=== PATIENT | male | born 1955 | race Caucasian/White ===

== ENCOUNTER 2020-09-14 07:33 | Outpatient (REF) | payer MEDICARE, SELFPAY ==
[2020-09-14 10:06] LABS: Anion Gap 15 (12-20); Blood Urea Nitrogen 13 mg/dL (9-16); Carbon Dioxide 29 mmol/L (22-29); Chloride 103 mmol/L (96-108); Estimated Glomerular Filt Rate > 60; Potassium 3.9 mmol/l (3.3-5.1); Sodium 143 mmol/L (135-145)
== END 2020-09-14 07:34 | disposition home or self-care (01) ==
LOC: HO.10HDL 07:33
PROVIDERS: PCP Family Medicine; Visit Provider Family Medicine
DX: I10 Essential (primary) hypertension (principal)
CPT/HCPCS: 80051; 82565; 84520

== ENCOUNTER → 2020-11-25 10:12 | Outpatient (REF) | payer MEDICARE, SELFPAY ==
--- NOTE | ~2020-11-25 | XR_ITS ---
EXAMINATION: XR CHEST CLINICAL INFORMATION: Shortness of breath. Dyspnea on exertion. COMPARISON: 09/28/2018 TECHNIQUE: 2 views of the chest were obtained. FINDINGS: The lungs are mildly hyperexpanded. There is no consolidation, edema, or effusion. No pneumothorax. The cardiomediastinal silhouette is normal in size. Mild degenerative changes of the spine. XR/XR chest 2V IMPRESSION: Hyperexpanded, clear lungs.
--- NOTE | 2020-11-25 10:30 | ECG_ITS ---
Test Reason : SOB Blood Pressure : / mmHG Vent. Rate : 060 BPM Atrial Rate : 060 BPM P-R Int : 164 ms QRS Dur : 098 ms QT Int : 394 ms P-R-T Axes : 071 069 092 degrees QTc Int : 394 ms Normal sinus rhythm ST & T wave abnormality, consider lateral ischemia Abnormal ECG No previous ECGs available Referred By: Otto Callaway Electronically Signed By:AUDREY ROBLEDO MD
== END ==
LOC: HO.CARD 10:12
PROVIDERS: PCP Family Medicine; Visit Provider Family Medicine
DX: R06.02 Shortness of breath (principal); R06.00 Dyspnea, unspecified
CPT/HCPCS: 71046; 93005

== ENCOUNTER → 2020-12-01 07:17 | Outpatient (REF) | payer MEDICARE, SELFPAY ==
--- NOTE | 2020-12-01 07:21 | CA_ITS ---
Transthoracic Echocardiogram Patient (Last, First, Middle): Moise Gomez, Gender: Male Date of : 1955 Age: 65 Procedure Date: 12/01/2020 Procedure Type: Transthoracic Echocardiogram Location: OP Height: 175.26 cm Weight: 70.31 kg BSA: 1.85 m2 Heart Rate: bpm BP: 130 / 80 mmHg Informatics Scientist: Referring MD: Otto Callaway MD Symptoms: SOB,DYSPNEA. R/O CHF Study Quality: Fair, good on Apical views Conclusions: - 1. Normal LV systolic function with grade 1 diastolic dysfunction 2. Mild aortic regurgitation 3. Normal RV systolic pressure 4. No pericardial effusion Findings Left Ventricle Normal left ventricular size, thickness, and systolic function. The visually estimated ejection fraction is between 60-65%. Spectral Doppler is indicative of an impaired relaxation filling pattern. E/E prime ratio is <8, consistent with normal filling pressures. Evidence suggests grade I (mild) diastolic dysfunction. Right Ventricle Normal right ventricular cavity size and systolic function. Atria Both atria are normal in size. There is no evidence of interatrial shunt. Aortic Valve The aortic valve structure and function is likely normal. There is no aortic valve stenosis. There is mild aortic valve regurgitation. Mitral Valve Normal mitral valve structure and function. There is mild mitral annular calcification. There is trace mitral valve regurgitation. There is no mitral valve stenosis. Pulmonic Valve The pulmonic valve was not well visualized. Tricuspid Valve Likely normal tricuspid valve structure and function. There is trace tricuspid valve regurgitation. The right ventricular systolic pressure is normal. The right ventricular systolic pressure is 15 mmHg. Normal right atrial pressure. There is no evidence of pulmonary hypertension. Great Vessels All visible segments of the aorta are normal in size. The pulmonary artery was not well visualized. Venous The inferior vena cava is normal in size and collapses greater than 50% with inspiration. Pericardium/Pleural There is no evidence of pericardial effusion. Prior Study Comparison No prior study available for comparison. Measurements 2D Linear Measurements IVSd: 0.93 0.6-0.9/0.6-1.0 cm LVIDd: 4.08 3.9-5.3/4.2-5.9 cm LVIDd Index: 2.21 2.4-3.2/2.2-3.1 cm/m2 LVIDs: 2.63 2.0-3.6 cm LVPWd: 0.93 0.7-1.1 cm Ao Root: 3.90 2.1-3.5 cm LA Diam: 3.00 2.7-3.8/3.0-4.0 cm LAIDs Index: 1.62 1.5-2.3 cm/m2 LV Mass: 236.59 67-162/88-224 g LV Mass Index: 127.89 43-95/49-115 g/m2 LVOT Diam: 2.00 3.0+(-)1.3 cm Mitral Valve MV Pk E: 0.61 MV PK A: 0.88 MV Decel Time: 248.00 E/A: 0.70 E'Lateral: 7.83 E'Medial: 5.90 E/E' Med: 10.30 E/E' Lat: 7.70 PHT: 73.00 MVA PHT: 3.01 Decel Caroline: 2.44 Aortic Valve AoV Pk Joel: 1.60 AoV Mn Joel: 1.04 AoV VTI: 0.32 AoV Pk Grad: 10.00 Aov Mn Grad: 5.00 HAIM Cont.VTI: 2.60 LVOT LVOT Pk Joel: 1.15 LVOT Mn Joel: 0.68 LVOT VTI: 0.26 LVOT Pk Grad: 5.00 LVOT Mn Grad: 2.00 LVOT Diam: 2.00 LVOT Area: 3.14 Diastolic Function MV Pk E: 0.61 MV Pk A: 0.88 E/A: 0.70 E'Medial: 5.90 E/E' Med: 10.30 E' Laterial: 7.83 E/E' Lat: 7.70 Tricuspid Valve TR Pk Joel: 1.75 TR Pk Grad: 12.00 RA Press: 3.00 RVSP: 15.00 Great Vessels Aorta Ao Root-2D: 3.90 2.0-3.7 cm Ao Asc: 3.70 2.1-3.4 cm Pulmonary Valve PV Pk Joel: 1.02 Peak PV Grad: 4.00 Updated in Other Vendor System with Status of Final Fermín Rodriguez MD electronically signed on 12/01/2020 6:03:49 PM with status of Final
== END ==
LOC: HO.CARD 07:17
PROVIDERS: Visit Provider Family Medicine
DX: R06.02 Shortness of breath (principal); R06.00 Dyspnea, unspecified
CPT/HCPCS: 93306

== ENCOUNTER → 2020-12-20 09:46 | Outpatient (REF) | payer MEDICARE, SELFPAY ==
--- NOTE | ~2020-12-20 | NM_ITS ---
EXERCISE MYOCARDIAL PERFUSION STUDY INDICATION: Shortness of breath, assess for coronary disease and ischemia TECHNIQUE: The patient was brought in for an exercise perfusion study on 12/20/2020. Patient performed exercise as per [facility] protocol and was injected 25 mCi of sestamibi once target heart rate was achieved. Images were obtained using the SPECT gamma camera interlaced with the gating device. Images were obtained in supine position. Resting perfusion study was performed on 12/21/2020. Patient was administered 25 mCi of sestamibi intravenously at rest. Images were then obtained in supine position. Total DLP 69mGy-cm. Images were processed with the software and compared side to side in short axis, horizontal long axis and vertical long axis views. FINDINGS: Raw images were reviewed. The stress perfusion study showed diminished tracer uptake along the inferior septum from basal portion to the apex. With CT attenuation correction there is improvement and hence could suggest diaphragmatic artifact. However there is also adjacent GI tracer uptake which makes interpretation difficult. The gated study shows normal LV systolic function with calculated LVEF of 55%. LV cavity is normal in size. The gated study shows normal wall thickening and contraction of segments. Resting study shows diminished tracer uptake along the inferior septum from base to apex. There is improvement with CT attenuation correction, but because of adjacent GI tracer uptake, interpretation difficult. Gating at rest reveals normal wall motion with ejection fraction at 60%. The findings are consistent with no reversible defects. Fixed inferior septal defect probably artifactual. NM/NM russ perf SPECT rest & str IMPRESSION: 1. Myocardial perfusion imaging study shows no evidence of ischemia. Fixed defect along the inferior septum that could be related to adjacent GI tracer uptake. 2. Gated LVEF is 52% during stress and 60% during rest. 3. Transient ischemic dilatation not present. EKG component of the test reported separately.
--- NOTE | 2020-12-20 10:00 | CA_ITS ---
Acquisition Time: 2020-12-20 10:15:18 Total Exercise Time: 00:04:41 Test Indications: SOB Medications: Protocol: DANYELL Max HR: 105 BPM 68% of Pred: 153 BPM Max BP: 168/072 mmHG Max Work Load: 5.2 METS Exercise stress nuclear using modified Danyell protocol, as Pt reports severe SOB with minimal activity. Pt was able to exercise for 4 min 41 sec, with TAPHR up to 72% and METS 5.20. EKG without arhhythmias, mild ST depressions seen inferiorly and anteriorly suggestive of ischemia, however his HR up to 72 %. Pt will have nuclear portion to assess for ischemia. Normotensive response to exercise. Test reviewed with Dr. Rodriguez. Referred By: Otto Callaway Overread By: Brielle Hodgson NP
== END ==
LOC: HO.CARD 09:46
PROVIDERS: PCP Family Medicine; Visit Provider Family Medicine
DX: R06.00 Dyspnea, unspecified (principal); R06.02 Shortness of breath; I10 Essential (primary) hypertension
CPT/HCPCS: 78452; 93016; 93017; 93018; A9500

== ENCOUNTER 2020-12-28 07:44 | Outpatient (REF) | payer MEDICARE, SELFPAY ==
--- NOTE | 2020-12-28 | PFT_ITS ---
INDICATION: Shortness of breath. SPIROMETRY: The FEV1 to FVC of 35% with an FEV1 of 1.65 L, which is 51% predicted and an FVC of 4.79 L, which is 110% predicted. No significant response to bronchodilators noted. Maximum voluntary ventilation 47% predicted. LUNG VOLUMES: Total lung capacity 112% predicted with residual volume of 141% predicted. DIFFUSION CAPACITY: DLCO 32% predicted. COMPARISONS: None available. INTERPRETATION: There is an obstructive ventilatory defect consistent with moderate to severe COPD. No significant response to bronchodilators noted. The patient has significant small airways disease. In addition to that, there is a [id number] diffusion impairment secondary to deconditioning and also worsening dynamic inspiratory capacity. The patient has a trend of hyperinflation and significant air trapping due to the COPD and the patient also has a severe diffusion impairment likely secondary to emphysema and other parenchymal lung conditions or pulmonary vascular conditions should also be considered. Clinical correlation warranted. MD ROSIE Redmond/[facility] / [phone]
== END 2020-12-28 07:45 | disposition home or self-care (01) ==
LOC: HO.RESP 07:44
PROVIDERS: PCP Family Medicine; Visit Provider Family Medicine
DX: R06.02 Shortness of breath (principal); Z87.891 Personal history of nicotine dependence
CPT/HCPCS: 94060; 94727; 94729

== ENCOUNTER → 2021-01-19 14:16 | Outpatient (BNVA) | payer MEDICARE, SELFPAY | PROVIDERS: PCP Family Medicine; Referring Provider Family Medicine; Visit Provider Internal Medicine | DX: R06.02 Shortness of breath (principal); I10 Essential (primary) hypertension; R94.31 Abnormal electrocardiogram [ECG] [EKG] | CPT/HCPCS: 99202 ==

== ENCOUNTER → 2021-02-22 08:25 | Outpatient (BNVA) | payer MEDICARE, SELFPAY | PROVIDERS: PCP Family Medicine; Visit Provider Hospitalist | DX: J41.8 Mixed simple and mucopurulent chronic bronchitis (principal) | CPT/HCPCS: 99202 ==

== ENCOUNTER 2021-04-08 13:45 | Outpatient (REF) | payer MEDICARE, SELFPAY ==
--- NOTE | ~2021-04-08 | CT_ITS ---
EXAMINATION: CT CHEST SCREENING CLINICAL INFORMATION: Lung cancer screening COMPARISON: Previous chest x-rays most recent November 2020 TECHNIQUE: Multidetector volumetric CT imaging of the chest is performed without contrast using low dose technique. Additional 2D coronal and sagittal reformatted images and axial 3D maximum intensity projection (MIP) images are generated on the CT workstation. This CT examination was performed using dose optimization techniques as appropriate, variously including the following: *Automated exposure control *Adjustment of mA and/or kV according to patient size (this includes techniques or standardized protocols for targeted exams where dose is matched to indication/reason for exam; i.e. extremities or head) *Use of iterative reconstruction technique DLP: 52 mGy-cm FINDINGS: LUNGS: There is evidence of emphysema. There is increased soft tissue seen in the anterior left mainstem bronchus measuring 6 x 9 mm, axial image 214 series 6. Right: There is an irregularly-shaped abnormal parenchymal density in the right upper lobe measuring 5 x 8 mm, axial image 104 series 6. There is an abnormal irregular-shaped parenchymal density in the right upper lobe measuring 0.8 x 1.2 cm, axial image 102 series 6. There is a 3 mm right upper lobe nodule, axial image 105 series 6. There is a 4 mm right upper lobe nodule, axial image 153 series 6. There is a 4 mm right upper lobe nodule, axial image 157 series 6. There is a 2 mm peripheral or subpleural right lower lobe nodule, axial image 267 series 6. There is a 4 mm peripheral right lower lobe nodule, axial image 299 series 6. There is a 3 mm peripheral right middle lobe nodule, axial image 369 series 6. There is subsegmental atelectasis in the posterior costophrenic sulcus of the right lower lobe for example, axial image 418 series 6. Left: There is a 3 mm left upper lobe nodule, axial image 78 series 6. There is an abnormal parenchymal density in the left upper lobe measuring 5 x 7 mm, axial image 165 series 6. There is a 4 mm ground-glass attenuation nodule in the left upper lobe, axial image 193 series 6. There are 2 adjacent 3 and 4 mm left lower lobe nodules, axial image 278 series 6. There are 3 mm right lower lobe nodules, axial image 329 and 340 series 6. MEDIASTINUM: The ascending thoracic aorta is dilated measuring 4.6 cm. The aortic arch and descending thoracic aorta are upper normal in size. The heart does not appear enlarged. There is moderate coronary artery calcification. There is no pericardial effusion. There are no enlarged hilar or mediastinal lymph nodes. PLEURA: There is no pleural effusion. No pleural mass or thickening. AXILLA: No lymphadenopathy. UPPER ABDOMEN: Unremarkable OSSEOUS STRUCTURES: There are degenerative changes of the spine. CT/CT lung screening IMPRESSION: Emphysema. Multiple abnormal parenchymal densities and nodules, largest measuring 0.8 x 1.2 cm in the right upper lobe and 6 x 9 mm endobronchial lesion in the left mainstem bronchus. Coronary artery calcification. Dilated ascending thoracic aorta. ASSESSMENT: Lung-RADS category 4A: Suspicious RECOMMENDATION: 3 month low-dose chest CT follow-up recommended.
== END 2021-04-08 13:46 | disposition home or self-care (01) ==
LOC: HO.CT 13:45
PROVIDERS: PCP Family Medicine; Visit Provider Physician Assistant Medical
DX: Z87.891 Personal history of nicotine dependence (principal); Z57.8 Occupational exposure to other risk factors
CPT/HCPCS: 71271

== ENCOUNTER 2021-04-26 08:02 | Outpatient (REF) | payer MEDICARE, SELFPAY ==
--- NOTE | ~2021-04-26 | PE_ITS ---
EXAMINATION: PET/CT FUSION SKULL TO THIGH CLINICAL INFORMATION: Multiple bilateral lung nodules. COMPARISON: None TECHNIQUE: Intravenous administration of 17.5 mCi of FDG in the left antecubital vein, whole-body PET emission scan was obtained. Subsequently 3.[address] transmission scan was obtained without oral or IV contrast for correlate of imaging. 3-D fusion CT and PET imaging was obtained on a separate workstation. Serum blood glucose. DLP: 465 mGy-cm FINDINGS: HEAD AND NECK: No abnormal metabolic activity seen in the visualized brain parenchyma or the sinuses. Mild symmetrical metabolic activity seen in the retropharyngeal soft tissue/muscle along the nasopharynx and lateral pharyngeal wall. No additional areas of abnormal activity seen. On CT imaging visualized brain parenchyma, bilateral orbits and the paranasal sinuses are unremarkable. The airway is widely patent. CHEST: There are multiple bilateral pulmonary nodules seen on CT. Most prominent irregular-shaped nodules in the right upper lobe are visualized on image 253/102 and image 258/102. No abnormal metabolic activity seen in these nodules. There are several additional nodules seen in both lungs with no abnormal metabolic activity seen at this time. No abnormal metabolic activity seen in the mediastinum to suspect any lymphadenopathy. On CT there are no lymph nodes in the mediastinum or the axilla. There is mild focal metabolic activity seen in the right sternoclavicular joint. There is no pleural effusion. Nonspecific metabolic activity is also visualized in the left anterior myocardium of the left ventricle suspicious for ischemic changes. ABDOMEN AND PELVIS: No abnormal metabolic activity seen in the solid organs except for normal activity in the kidneys, ureters and the bladder. On CT there is unremarkable-appearing liver, spleen, pancreas and bilateral adrenal glands. No radiopaque gallstones or kidney stones seen. Nonspecific mild activity seen in the right colon likely related to fecal ismael or diverticulosis. A few scattered diverticula are seen throughout the colon. Mild aneurysmal dilatation of distal abdominal aorta measuring 4.3 x 3.8 cm is noted. The appendix is normal caliber. Imaging through the pelvis reveals unremarkable urinary bladder. MSK: There is nonspecific mild metabolic activity seen adjacent to the ischium likely ischial bursitis. Bone windows reveal no lytic or sclerotic process. There are degenerative disc changes with vacuum disc phenomena L5-S1 disc level. PET/PET CT fusion skull to thigh IMPRESSION: No abnormal metabolic activity seen in the chest on PET study. On CT there are innumerable nodules seen in both lungs especially ill-defined larger densities in the right upper lobe. These are likely inflammatory or infectious in etiology. No abnormal activity seen in the neck, chest, abdomen or pelvis to suggest any abdominal lymphadenopathy or any other primary lesion. Scattered colonic diverticulosis.
== END 2021-04-26 08:03 | disposition home or self-care (01) ==
LOC: HO.PET 08:02
PROVIDERS: PCP Family Medicine; Visit Provider Surgery
DX: Z13.89 Encounter for screening for other disorder (principal)

== ENCOUNTER → 2021-05-19 08:25 | Outpatient (BNVA) | payer MEDICARE, SELFPAY | PROVIDERS: PCP Family Medicine; Visit Provider Hospitalist | DX: J41.8 Mixed simple and mucopurulent chronic bronchitis (principal); R91.8 Other nonspecific abnormal finding of lung field; R06.00 Dyspnea, unspecified | CPT/HCPCS: 99212 ==

== ENCOUNTER 2021-07-13 07:31 | Outpatient (REF) | payer MEDICARE, SELFPAY ==
[2021-07-13 09:59] LABS: MANUAL DIFF FLAG NO
[2021-07-13 10:01] LABS: Basophils Absolute Auto 0.1 X10*3/uL (0.0-0.2); Eosinophils Absolute Auto 0.1 X10*3/uL (0.0-0.4); Eosinophils Percent Auto 2.6 % (0-4); Hematocrit 45.7 % (42-52); Hemoglobin 15.9 g/dl (14.0-18.0); Imm Gran Abs Auto 0.01 X10*3/uL (0.00-0.03); Imm Gran Pct Auto 0.2 % (0.0-0.4); Lymphocytes Percent Auto 38.7 % (20-40); Mean Corpuscular HGB Conc 34.8 g/dl (31.0-36.0); Mean Corpuscular Hemoglobin 31.7 pg (27.0-33.0); Mean Corpuscular Volume 91.2 fL (80-98); Mean Platelet Volume 10.6 fL (9.4-12.4); Monocytes Absolute Auto 0.6 X10*3/uL (0.1-1.2); Monocytes Percent Auto 11.6 % (2-11); Neutrophils Absolute Auto 2.3 X10*3/uL (2.0-8.3); Neutrophils Percent Auto 45.9 % (45-73); Platelet Count 180 X10*3/uL (160-400); Red Blood Count 5.01 X10*6/uL (4.60-5.80); Red Cell Distribution Width 11.9 % (11.0-16.0); White Blood Count 5.1 X10*3/uL (4.8-10.8)
[2021-07-13 14:52] LABS: Alanine Aminotransferase 36 U/L (0-40); Albumin Level 4.7 g/dL (3.5-5.0); Alkaline Phosphatase 68 U/L (39-117); Anion Gap 14 (12-20); Aspartate Amino Transferase 28 U/L (5-37); Bilirubin Total 0.9 mg/dL (0.0-1.0); Blood Urea Nitrogen 10 mg/dL (9-16); Calcium 9.4 mg/dL (8.4-10.2); Carbon Dioxide 28 mmol/L (22-29); Chloride 102 mmol/L (96-108); Estimated Glomerular Filt Rate > 60; Glucose Fasting 134 mg/dL (60-99); Potassium 4.1 mmol/L (3.3-5.1); Sodium 140 mmol/L (135-145)
== END 2021-07-13 07:32 | disposition home or self-care (01) ==
LOC: HO.10HDL 07:31
PROVIDERS: Visit Provider Family Medicine
DX: R06.02 Shortness of breath (principal); R53.1 Weakness
CPT/HCPCS: 36415; 80053; 85025

== ENCOUNTER → 2021-08-01 08:41 | Outpatient (BNVA) | payer MEDICARE, SELFPAY | PROVIDERS: PCP Family Medicine; Referring Provider Family Medicine; Visit Provider Internal Medicine | DX: I25.10 Atherosclerotic heart disease of native coronary artery without angina pectoris (principal); I71.2 Thoracic aortic aneurysm, without rupture; I10 Essential (primary) hypertension; R94.31 Abnormal electrocardiogram [ECG] [EKG] | CPT/HCPCS: 99212 ==

== ENCOUNTER 2021-11-18 09:19 | Outpatient (REF) | payer MEDICARE, SELFPAY ==
--- NOTE | ~2021-11-18 | CT_ITS ---
EXAMINATION: CT CHEST WITHOUT CONTRAST CLINICAL INFORMATION: Other nonspecific finding of lung field. COMPARISON: Previous chest x-ray November 2020, CT of the chest [address] April 2021. TECHNIQUE: Multidetector volumetric CT imaging of the chest was done. Axial MIP volume rendering provided. Sagittal and coronal reformatted images were obtained. This CT examination was performed using dose optimization techniques as appropriate, variously including the following: *Automated exposure control *Adjustment of mA and/or kV according to patient size (this includes techniques or standardized protocols for targeted exams where dose is matched to indication/reason for exam; i.e. extremities or head) *Use of iterative reconstruction technique DLP: 147 mGy-cm FINDINGS: LUNGS: There is evidence of emphysema. The abnormal parenchymal density in the right upper lobe seen axial image 104 series 6 is no longer seen. The second more inferior right upper lobe heterogeneous partially ground-glass attenuation partially solid right upper lobe nodule appears decreased. The ground-glass attenuation peripheral component appears to have resolved. There is a residual small solid nodule measuring 3 mm axial image 128 series 7. This is decreased in size from 4 mm March 2021 exam axial image 133. There is a new 4 mm right lower lobe nodule axial 457 series 7. The previously identified 5 mm right upper lobe nodule axial image 184 series 4 is no longer seen. The small calcified and noncalcified pulmonary nodules or micronodules are otherwise stable. The largest is a 4 mm calcified left lower lobe nodule axial image 308 series 7. There is new atelectasis or small infiltrate in the right lower lobe. There is scarring or subsegmental atelectasis in the posterior left upper lobe adjacent to the fissure. No endobronchial or endotracheal lesion is seen. There are secretions in the left mainstem bronchus. MEDIASTINUM: The ascending thoracic aorta is dilated measuring 4.5 cm diameter. The aortic arch and descending thoracic aorta are upper normal in size. This is similar to previous exam. The heart does not appear enlarged. There is coronary artery calcification. There is no pericardial effusion. There are no enlarged hilar or mediastinal lymph nodes. PLEURA: There is no pleural effusion. No pleural mass or thickening. AXILLA: No lymphadenopathy. UPPER ABDOMEN: Unremarkable. OSSEOUS STRUCTURES: There are degenerative changes of the spine. CT/CT chest wo con IMPRESSION: Complete resolution of the more superior abnormal parenchymal density in the right upper lobe and interval decrease in size and density in the heterogeneous partially ground-glass attenuation, partially solid nodule or density in the more inferior right upper lobe compared to March 2021. New 4 mm right lower lobe nodule and resolution of previously identified anterior segment right upper lobe nodule. Otherwise, small calcified and noncalcified micronodules are stable. Increasing atelectasis or small infiltrate in the right lower lobe. Coronary artery calcification. Dilated ascending thoracic aorta and upper normal size aortic arch and descending thoracic aorta. Fleischner guidelines were followed.
== END 2021-11-18 09:20 | disposition home or self-care (01) ==
LOC: HO.CT 09:19
PROVIDERS: Visit Provider Hospitalist
DX: R91.8 Other nonspecific abnormal finding of lung field (principal)
CPT/HCPCS: 71250

== ENCOUNTER 2021-12-13 07:43 | Outpatient (REF) | payer MEDICARE, SELFPAY ==
[2021-12-13 09:10] LABS: Cholesterol 216 mg/dL; Glucose Fasting 144 mg/dL (60-99); HDL Cholesterol 64 mg/dL; LDL Cholesterol Calculated 133 mg/dl; Triglycerides 96 mg/dL
[2021-12-16 17:22] LABS: Transglutaminase Ab IgG <1.0 U/mL
== END 2021-12-13 07:44 | disposition home or self-care (01) ==
LOC: HO.LAB 07:43
PROVIDERS: PCP Family Medicine; Visit Provider Family Medicine
DX: E78.00 Pure hypercholesterolemia, unspecified (principal); K90.0 Celiac disease
CPT/HCPCS: 36415; 80061; 82947; 86364

== ENCOUNTER → 2021-12-28 08:31 | Outpatient (REF) | payer MEDICARE, SELFPAY ==
--- NOTE | 2021-12-28 08:38 | CA_ITS ---
Transthoracic Echocardiogram Patient (Last, First, Middle): Moise Gomez, Gender: Male Date of : 1955 Age: 66 Procedure Date: 12/28/2021 Procedure Type: Transthoracic Echocardiogram Location: OP Height: 175.26 cm Weight: 67.59 kg BSA: 1.82 m2 Heart Rate: bpm BP: 136 / 76 mmHg Payroll Administrative Assistant: FRIDA Referring MD: Dav Mukherjee MD Symptoms: I71.2 - Thoracic aortic aneurysm, without rupture Study Quality: Fair Conclusions: - 1. Normal LV systolic function with impaired relaxation filling pattern 2. Trivial aortic regurgitation 3. Mildly dilated ascending aorta at 3.9 cm 4. No gross pericardial effusion Findings Left Ventricle Normal left ventricular size, thickness, and systolic function. The visually estimated ejection fraction is between 60-65%. Spectral Doppler is indicative of an impaired relaxation filling pattern. E/E prime ratio is between 8 and 15 consistent with indeterminate filling pressures. Right Ventricle Normal right ventricular cavity size and systolic function. Atria The left atrium is likely dilated. Interatrial shunt cannot be excluded. The right atrium is normal in size. Aortic Valve The aortic valve was not well visualized. There is no aortic valve stenosis. There is trace (trivial) aortic valve regurgitation. Mitral Valve Likely normal mitral valve structure and function. There is trace mitral valve regurgitation. There is no mitral valve stenosis. Pulmonic Valve The pulmonic valve was not well visualized. Tricuspid Valve Likely normal tricuspid valve structure and function. Tricuspid regurgitation envelope is inadequate for calculation of right ventricular systolic pressure. Great Vessels The pulmonary artery was not well visualized. There is mild dilatation of the ascending aorta measuring 3.90 cm. Venous The inferior vena cava is normal in size and collapses greater than 50% with inspiration. Pericardium/Pleural There is no evidence of pericardial effusion. Prior Study Comparison Changes noted compared to prior study dated: 12/01/2020. ascending aorta is mildly dilated at 3.9 cm Measurements 2D Linear Measurements IVSd: 0.83 0.6-0.9/0.6-1.0 cm LVIDd: 4.45 3.9-5.3/4.2-5.9 cm LVIDd Index: 2.45 2.4-3.2/2.2-3.1 cm/m2 LVIDs: 2.69 2.0-3.6 cm LVPWd: 0.97 0.7-1.1 cm LA Diam: 3.30 2.7-3.8/3.0-4.0 cm LAIDs Index: 1.81 1.5-2.3 cm/m2 LV Mass: 162.75 67-162/88-224 g LV Mass Index: 89.42 43-95/49-115 g/m2 LVOT Diam: 2.00 3.0+(-)1.3 cm 2D Systolic Function EF 4C: 67.70 >55% EF 2C: 64.90 >55% EF BiP: 66.50 >55% Mitral Valve MV Pk E: 0.77 MV PK A: 0.94 MV Decel Time: 210.00 E/A: 0.80 E'Lateral: 10.10 E'Medial: 6.31 E/E' Med: 12.10 E/E' Lat: 7.60 PHT: 61.00 MVA PHT: 3.[address] [place]: 3.65 Aortic Valve AoV Pk Joel: 1.43 AoV Mn Joel: 0.94 AoV VTI: 0.31 AoV Pk Grad: 8.00 Aov Mn Grad: 4.00 HAIM Cont.VTI: 2.34 LVOT LVOT Pk Joel: 1.04 LVOT Mn Joel: 0.69 LVOT VTI: 0.23 LVOT Pk Grad: 4.00 LVOT Mn Grad: 2.00 LVOT Diam: 2.00 LVOT Area: 3.14 Diastolic Function MV Pk E: 0.77 MV Pk A: 0.94 E/A: 0.80 E'Medial: 6.31 E/E' Med: 12.10 E' Laterial: 10.10 E/E' Lat: 7.60 Right Ventricle TAPSE (mm): 20.00 TVS' Joel: 12.70 Tricuspid Valve TR Pk Joel: 1.16 TR Pk Grad: 5.00 Great Vessels Aorta Sinus of Valsalva: 3.75 2.0-3.[address] [place]: 3.35 1.7-3.4 cm Ao Asc: 3.90 2.1-3.4 cm Ao Arch: 3.60 Updated in Other Vendor System with Status of Final Fremín Rodriguez MD electronically signed on 12/28/2021 3:40:52 PM with status of Final
== END ==
LOC: HO.CARD 08:31
PROVIDERS: Visit Provider Internal Medicine
DX: I71.2 Thoracic aortic aneurysm, without rupture (principal)
CPT/HCPCS: 93306

== ENCOUNTER → 2022-03-03 10:09 | Outpatient (BNVA) | payer MEDICARE, SELFPAY | PROVIDERS: PCP Family Medicine; Visit Provider Hospitalist | DX: J41.8 Mixed simple and mucopurulent chronic bronchitis (principal); R06.00 Dyspnea, unspecified; R91.8 Other nonspecific abnormal finding of lung field | CPT/HCPCS: 99212 ==

== ENCOUNTER → 2022-04-20 10:29 | Outpatient (BNVA) | payer MEDICARE, SELFPAY | PROVIDERS: PCP Family Medicine; Referring Provider Family Medicine; Visit Provider Internal Medicine | DX: I25.10 Atherosclerotic heart disease of native coronary artery without angina pectoris (principal); I71.2 Thoracic aortic aneurysm, without rupture; I10 Essential (primary) hypertension; R94.31 Abnormal electrocardiogram [ECG] [EKG] | CPT/HCPCS: 93005; 99212 ==

== ENCOUNTER 2022-06-13 06:16 | Outpatient (REF) | payer MEDICARE, SELFPAY ==
[2022-06-13 06:33] LABS: MANUAL DIFF FLAG NO
[2022-06-13 07:16] LABS: Basophils Percent Auto 0.6 % (0-2); Eosinophils Absolute Auto 0.2 X10*3/uL (0.0-0.4); Eosinophils Percent Auto 2.8 % (0-4); Hematocrit 45.3 % (42.0-52.0); Hemoglobin 15.7 g/dl (14.0-18.0); Imm Gran Abs Auto 0.01 X10*3/uL (0.00-0.03); Imm Gran Pct Auto 0.1 % (0.0-0.4); Lymphocytes Absolute Auto 1.8 X10*3/uL (1.2-4.9); Lymphocytes Percent Auto 25.7 % (20-40); Mean Corpuscular HGB Conc 34.7 g/dl (31.0-36.0); Mean Corpuscular Hemoglobin 31.6 pg (27.0-33.0); Mean Corpuscular Volume 91.1 fL (80.0-98.0); Mean Platelet Volume 10.3 fL (9.4-12.4); Monocytes Absolute Auto 0.6 X10*3/uL (0.1-1.2); Neutrophils Absolute Auto 4.3 x10*3/uL (2.0-8.3); Neutrophils Percent Auto 61.8 % (45-73); Platelet Count 141 X10*3/uL (160-400); Red Blood Count 4.97 X10*6/uL (4.60-5.80); Red Cell Distribution Width 12.3 % (11.0-16.0); White Blood Count 6.9 X10*3/uL (4.8-10.8)
[2022-06-13 07:21] LABS: INTERNATIONAL NORM RATIO 1.1 (0.9-1.1); Prothrombin Time 12.5 SEC (10.0-13.1)
[2022-06-13 07:23] LABS: Estimated Average Glucose 134 mg/dL; Hemoglobin A1c % 6.3 %; Partial Thromboplastin Time 31.5 SEC (26.0-36.4)
[2022-06-13 07:46] LABS: Alanine Aminotransferase 22 U/L (0-40); Albumin Level 4.5 g/dL (3.5-5.0); Alkaline Phosphatase 56 U/L (39-117); Anion Gap 15 (12-20); Aspartate Amino Transferase 25 U/L (5-37); Bilirubin Total 0.8 mg/dL (0.0-1.0); Blood Urea Nitrogen 13 mg/dL (9-16); Calcium 8.9 mg/dL (8.4-10.2); Carbon Dioxide 25 mmol/L (22-29); Chloride 107 mmol/L (96-108); Estimated Glomerular Filt Rate > 60; Glucose Fasting 119 mg/dL (60-99); Potassium 4.1 mmol/L (3.3-5.1); Sodium 143 mmol/L (135-145); Total Protein 6.8 g/dL (6.5-8.0)
== END 2022-06-13 06:17 | disposition home or self-care (01) ==
LOC: HO.LAB 06:16
PROVIDERS: PCP Family Medicine; Referring Provider Internal Medicine Cardiovascular Disease; Visit Provider Family Medicine
DX: I10 Essential (primary) hypertension (principal); E11.9 Type 2 diabetes mellitus without complications; R06.02 Shortness of breath
CPT/HCPCS: 36415; 80053; 83036; 85025; 85610; 85730

== ENCOUNTER → 2022-07-03 11:11 | Outpatient (BNVA) | payer MEDICARE, SELFPAY | PROVIDERS: PCP Family Medicine; Referring Provider Family Medicine; Visit Provider Internal Medicine | DX: R07.2 Precordial pain (principal); I25.10 Atherosclerotic heart disease of native coronary artery without angina pectoris; I71.20 Thoracic aortic aneurysm, without rupture, unspecified; I10 Essential (primary) hypertension | CPT/HCPCS: 93005; 99212 ==

== ENCOUNTER → 2022-07-31 10:12 | Outpatient (BNVA) | payer MEDICARE, SELFPAY | PROVIDERS: PCP Family Medicine; Visit Provider Internal Medicine | DX: I25.10 Atherosclerotic heart disease of native coronary artery without angina pectoris (principal); I10 Essential (primary) hypertension; E78.5 Hyperlipidemia, unspecified; I71.20 Thoracic aortic aneurysm, without rupture, unspecified | CPT/HCPCS: 99212 ==

== ENCOUNTER → 2022-09-27 09:37 | Outpatient (BNVA) | payer MEDICARE, SELFPAY | PROVIDERS: PCP Family Medicine; Visit Provider Hospitalist | DX: J41.8 Mixed simple and mucopurulent chronic bronchitis (principal); R06.00 Dyspnea, unspecified; R91.8 Other nonspecific abnormal finding of lung field | CPT/HCPCS: 99212 ==

== ENCOUNTER 2022-10-05 05:58 | Outpatient (REF) | payer MEDICARE, SELFPAY ==
[2022-10-05 07:44] LABS: Hematocrit 45.2 % (42.0-52.0); Hemoglobin 15.3 g/dl (14.0-18.0); Mean Corpuscular HGB Conc 33.8 g/dl (31.0-36.0); Mean Corpuscular Hemoglobin 31.4 pg (27.0-33.0); Mean Corpuscular Volume 92.8 fL (80.0-98.0); Mean Platelet Volume 10.3 fL (9.4-12.4); Platelet Count 142 X10*3/uL (160-400); Red Blood Count 4.87 X10*6/uL (4.60-5.80)
[2022-10-05 08:10] LABS: INTERNATIONAL NORM RATIO 1.2 (0.9-1.1); Prothrombin Time 13.4 SEC (10.0-13.1)
[2022-10-05 08:14] LABS: Alanine Aminotransferase 19 U/L (0-40); Albumin Level 4.3 g/dL (3.5-5.0); Alkaline Phosphatase 55 U/L (39-117); Anion Gap 12 (12-20); Aspartate Amino Transferase 20 U/L (5-37); Bilirubin Direct 0.3 mg/dL (0.0-0.5); Bilirubin Total 0.9 mg/dL (0.0-1.0); Blood Urea Nitrogen 12 mg/dL (9-16); Calcium 9.2 mg/dL (8.4-10.2); Carbon Dioxide 28 mmol/L (22-29); Chloride 106 mmol/L (96-108); Cholesterol 150 mg/dL; Estimated Glomerular Filt Rate > 60; Glucose Random 127 mg/dL (60-115); HDL Cholesterol 51 mg/dL; LDL Cholesterol Calculated 83 mg/dl; Potassium 3.6 mmol/L (3.3-5.1); Sodium 142 mmol/L (135-145); Total Protein 6.5 g/dL (6.5-8.0); Triglycerides 83 mg/dL
[2022-10-05 08:17] LABS: Estimated Average Glucose 134 mg/dL; Hemoglobin A1c % 6.3 %
[2022-10-05 08:18] LABS: Alanine Aminotransferase 19 U/L (0-40); Glucose Fasting 128 mg/dL (60-99)
[2022-10-05 08:32] LABS: Creatinine Urine 127.82 mg/dL; Microalbum/Creatinine Ratio Ur 10.9 ug/mg cr
== END 2022-10-05 05:59 | disposition home or self-care (01) ==
LOC: HO.LAB 05:58
PROVIDERS: Internal Medicine; PCP Family Medicine; Visit Provider Family Medicine
DX: I25.10 Atherosclerotic heart disease of native coronary artery without angina pectoris (principal); E78.5 Hyperlipidemia, unspecified; E11.9 Type 2 diabetes mellitus without complications; E78.00 Pure hypercholesterolemia, unspecified; Z79.899 Other long term (current) drug therapy
CPT/HCPCS: 36415; 80048; 80061; 80076; 82043; 82550; 82947; 83036; 84460; 85027; 85610

== ENCOUNTER → 2023-01-30 08:20 | Outpatient (BNVA) | payer MEDICARE, SELFPAY | PROVIDERS: PCP Family Medicine; Referring Provider Family Medicine; Visit Provider Internal Medicine | DX: I25.10 Atherosclerotic heart disease of native coronary artery without angina pectoris (principal); I71.20 Thoracic aortic aneurysm, without rupture, unspecified; I10 Essential (primary) hypertension; E78.5 Hyperlipidemia, unspecified | CPT/HCPCS: 99212 ==

== ENCOUNTER 2023-02-07 08:42 | Outpatient (REF) | payer MEDICARE, SELFPAY ==
--- NOTE | ~2023-02-07 | CT_ITS ---
EXAMINATION: CT CHEST WITHOUT CONTRAST CLINICAL INFORMATION: Nonspecific abnormal lung findings COMPARISON: CT chest 11/18/2021 TECHNIQUE: Multidetector volumetric CT imaging of the chest was done. Axial MIP volume rendering provided. Sagittal and coronal reformatted images were obtained. This CT examination was performed using dose optimization techniques as appropriate, variously including the following: *Automated exposure control *Adjustment of mA and/or kV according to patient size (this includes techniques or standardized protocols for targeted exams where dose is matched to indication/reason for exam; i.e. extremities or head) *Use of iterative reconstruction technique DLP: 131 mGy-cm FINDINGS: INBOUND TELEMARKETER: Hyperinflated lungs. LUNGS: There is centrilobular and paraseptal emphysema. Patchy atelectatic changes left upper lobe and mild thickening of left minor fissure. A 2 mm nodular density is seen, axial image 157/7, stable, a 5 mm and a 4 mm calcified nodules adjacent to each other in left lower lobe axial image 330/5 are stable. Focal atelectatic changes are seen in the right lung base. There are no solid pulmonary nodules seen at this time. Especially the right upper lobe nodules described on last CT chest are not visualized. A calcified 2 mm nodule is seen in the right upper lobe on axial image 262/5. MEDIASTINUM: The thyroid lobes are symmetrical and normal. The central trachea and the bronchi are widely patent. The heart size is normal. There is mild aneurysmal dilatation of ascending aorta measuring 4.4 x 4.5 cm on axial slice 35/3. No abnormal mediastinal lymph nodes seen. The thyroid lobes are symmetric and normal. CORONARY ARTERY CALCIFICATION: Moderate to significant coronary artery calcifications are seen. PLEURA: There is no pleural effusion. No pleural mass or thickening. AXILLA: No abnormal lymph nodes seen in the axilla. The chest wall is unremarkable. UPPER ABDOMEN: Visualized liver, spleen, pancreas and bilateral adrenal glands are unremarkable. OSSEOUS STRUCTURES: No aggressive lytic or sclerotic process seen. CT/CT chest wo IV con IMPRESSION: 1. Diffuse centrilobular and paraseptal emphysema with atelectatic changes. Several of the right upper lobe pulmonary nodules have resolved. 2 adjacent calcified nodules left lower lobe are stable. No new nodules seen. No consolidation. 2. No abnormal mediastinal or axillary lymphadenopathy. Fleischner guidelines were followed.
== END 2023-02-07 08:43 | disposition home or self-care (01) ==
LOC: HO.CT 08:42
PROVIDERS: PCP Family Medicine; Visit Provider Hospitalist
DX: R91.8 Other nonspecific abnormal finding of lung field (principal)
CPT/HCPCS: 71250

== ENCOUNTER 2023-03-14 05:58 | Outpatient (REF) | payer MEDICARE, SELFPAY ==
[2023-03-14 08:01] LABS: Alanine Aminotransferase 27 U/L (0-40); Anion Gap 15 (12-20); Aspartate Amino Transferase 23 U/L (5-37); Blood Urea Nitrogen 14 mg/dL (9-16); Carbon Dioxide 27 mmol/L (22-29); Chloride 106 mmol/L (96-108); Cholesterol 125 mg/dL; Estimated Glomerular Filt Rate > 60; Glucose Fasting 129 mg/dL (60-99); HDL Cholesterol 59 mg/dL; LDL Cholesterol Calculated 55 mg/dl; Potassium 4.5 mmol/L (3.3-5.1); Sodium 143 mmol/L (135-145); Triglycerides 59 mg/dL
[2023-03-14 08:07] LABS: Estimated Average Glucose 137 mg/dL; Hemoglobin A1c % 6.4 %
== END 2023-03-14 05:59 | disposition home or self-care (01) ==
LOC: HO.LAB 05:58
PROVIDERS: PCP Family Medicine; Visit Provider Family Medicine
DX: I10 Essential (primary) hypertension (principal); E78.00 Pure hypercholesterolemia, unspecified; E11.9 Type 2 diabetes mellitus without complications; Z79.899 Other long term (current) drug therapy
CPT/HCPCS: 36415; 80051; 80061; 82550; 82565; 82947; 83036; 84450; 84460; 84520

== ENCOUNTER 2023-04-04 08:12 | Outpatient (AMB) | payer MEDICARE, SELFPAY ==
[2023-04-04 08:29] VITALS: BP 110/60; PULSE 60; O2SAT 95; BMI 21.7
--- NOTE | 2023-04-04 08:29 | MHC.OFFVIS ---
Intake Vital Signs 04/04/23 08:29 Height 5 ft 9 in Weight 147 lb BMI 21.7 BP 110/60 Blood Pressure Location Lt brachial Position Standing Pulse 60 Pulse Source Pulse Oximeter Pulse Oximetry (%) 95 Oxygen Delivery Method Room Air Intake Visit Reasons: Shortness of breath Intake Note: pt is here today and feeling well, here for ct scan results Allergies nystatin [From Bio-Statin] Allergy (Severe, Verified 04/04/23 08:32) liver meperidine [From Demerol] Allergy (Mild, Verified 04/04/23 08:32) Nausea and Vomiting HPI HPI Comments History of Present Illness Details The patient is a 68-year-old gentleman former smoker quit 2 years ago was been complaining of worsening dyspnea on exertion. He also had a significant congested cough. He underwent pulmonary function studies few months ago demonstrating a moderate to severe degree of COPD. In addition to that air trapping along with severe diffusion impairment. He was prescribed Breo and was provided samples. When he started the Breo in used it once a day his symptoms improved dramatically. The congestion improved dramatically. He states up to like 90% improvement. Still had a cough is still has some shortness of breath especially going up a flight of stairs. He is concerned because his insurance company does not cover prescriptions in these inhalers a very expensive. The patient had a chest x-ray that I personally reviewed demonstrating hyperinflated lungs. With his smoking history he is a good candidate for the lung cancer screening program. 05/19/2021 the patient is here for pulmonary follow-up visit. He still complaining of significant dyspnea on exertion and congested cough. The Breo was helpful in clearing the phlegm. But, did not improve his respiratory status. He also is without injuring so he does not want to take it. He also tried the nebulized therapy but the did not feel that this helped his respiratory status either. In the meantime he did undergo the lung cancer screening program and found to a nodular density in the upper lobe the greater than cm and also appeared to be in the bronchial lesion. Therefore him doing the PET scan demonstrating no evidence of any FDG activity in the right upper lobe nodule in addition to that appear that he clear the left mainstem bronchus nodular density. Although he may have mucus plugging or an aspiration of foreign body that is moving around his lungs. Patient is reluctant to undergo a repeat CT scan a times soon. Will try to push it out to the spring. He understands PET scan is reassuring but still did nodules subsolid in nature and smoldering malignant process is still in differential. These smoldering processes do not have to be active on PET. In addition to that it appears that his PET scan showed minimal activity around the heart suggesting a possibility of underlying CAD. At this point the patient will be prescribed azithromycin 3 times a week for chronic bronchitis and also tried a low dose of a prednisone taper to see if he improves his respiratory status. Will follow-up in the springtime with repeat CT scan. 03/03/2022 the patient is here for a pulmonary follow-up visit. The patient overall is feeling about the same. He continues to have dyspnea on exertion moderate severity. He does not have significant improvement from the respiratory therapy. Explained to him that is mainly due to the fact that he has significant emphysema and hypoxia. The patient is not interested in oxygen at this time. He may benefit from oxygen in the future. The patient also had a CT scan of the chest in November 2021 which we personally reviewed together. It appears he does numerous pulmonary nodules some that are new. Subcentimeter in size. The right upper lobe density has improved significantly. He has other areas that have slightly worsened as far as the atelectasis. He also has significant emphysema. Based on the fact that the findings have been showing some improvement will follow-up in 1 year to make sure that new pulmonary nodules of not progressed. Will have the patient return in 6 months. If his symptoms are any worse then we can consider repeating the CT scan at an earlier time. 09/27/2022 the patient is here for a pulmonary follow-up visit. Since we last spoke he had additional cardiac testing. He had a cardiac catheterization and had a stent to the LAD and subsequently after that required 2 additional stents 1 to the circumflex. In the meantime he continues to participate in cardiac rehab. He does have shortness of breath. He has a rescue inhaler that he has tried and has not noticed any significant improvement. He has not undergone pulmonary function studies in some time. The patient also has underlying pulmonary nodules. He has last CT scan of the chest was back in November 2021 were demonstrated that some of the nodular densities had improved although he had new pulmonary nodules. He is scheduled to have a repeat CT scan in November of 2022. However, with his ongoing cardiac issues the patient would like to postpone that. Therefore will push it out to 6 months. If however the patient develops any worsening symptoms we can always reconsider. Otherwise will follow-up in [address] scan of the chest. 04/04/2023 the patient is here for a pulmonary follow-up visit. The patient is concerned because his strides in the ER with significant back pain. His breathing is about the same. Still complains of dyspnea on exertion moderate severity. He tried multiple inhalers without any significant improvement. He does uses rescue inhaler as the only 1 that really provide him some relief. The patient is willing to try Combivent. I will send that to the pharmacy to see if this is effective for him. In the meantime we did get a CT scan of the chest to follow up with the new pulmonary nodules that were noted on previous CT scan. It is reassuring that the bigger nodules have subsided. He still has pulmonary nodules and also extensive emphysema. Will go ahead and plan to repeat the CT scan that year's time. Otherwise patient for the Combivent continue with an exercise regimen. [facility] Medical History (Updated 04/04/23 @ 22:21 by Rey Doan MD) COPD (chronic obstructive pulmonary disease) Dyspnea Essential hypertension Personal history of nicotine dependence Surgical History History of back surgery History of cardiac catheterization (~06/20/22) Family History Father CVD (cardiovascular disease) Mother Stroke Social History Alcohol intake: current Alcohol intake frequency: a few times a week Patient Tobacco Use Status: Former Tobacco user Years Smoked: 33 (onset 14, smoked off/on 52yrs for total 33yrs, 1ppd max, 30pyh) Review of Systems Const Denies chills, Denies fatigue, Denies fever(s), Denies frequent falls, Denies weakness, Denies weight gain and Denies weight loss ENT Denies dizziness Card Denies chest pain, Denies leg edema, Denies lightheadedness, Denies palpitations, Denies dyspnea, Denies dyspnea on exertion, Denies orthopnea and Denies other (Loss of consciousness) Resp Denies cough, Denies dyspnea and Denies dyspnea on exertion GI Denies hematochezia and Denies change in bowel habits Musc Denies abnormal gait, Denies muscle weakness, Denies numbness, Denies radiating pain into limb and Denies tingling Neuro Denies abnormal gait, Denies dizziness, Denies frequent falls, Denies numbness, Denies tingling and Denies weakness Endo Denies fatigue and Denies palpitations Physical Exam Vital Signs: Last Vital Signs Pulse 60 04/04/23 08:29 BP 110/60 04/04/23 08:29 Pulse Ox 95 04/04/23 08:29 Oxygen Delivery Method Room Air 04/04/23 08:29 BMI result Body Mass Index 21.7 Const General: alert Neck Neck: Yes normal visual inspection, Yes full ROM and Yes no lymphadenopathy Chest Chest palpation & inspection: normal inspection of the chest Resp Auscultation: diminished lung sounds Cardio Rate: regular rate Rhythm: regular rhythm Heart sounds: S1 normal heart sound present and S2 normal heart sound present GI Palpation (GI): Soft to palpation and nontender Auscultation: normal bowel sounds Skin General skin exam: rashes and/or lesions noted Results Reviewed Results Reviewed: [address] [address] [address] Scan Report Signed Patient: Moise Gomez MR#: [id number] : 1955 Acct:[id number] Age/Sex: 67 / M ADM Date: 02/07/23 Loc: HO.CT Attending Dr: Rey Doan MD Ordering Physician: Rey Doan MD Date of Service: 02/07/23 Procedure(s): CT chest wo IV con Accession Number(s): [id number] cc: Rey Doan MD~ EXAMINATION: CT CHEST WITHOUT CONTRAST CLINICAL INFORMATION: Nonspecific abnormal lung findings? COMPARISON: CT chest 11/18/2021 TECHNIQUE: Multidetector volumetric CT imaging of the chest was done. Axial MIP volume rendering provided. Sagittal and coronal reformatted images were obtained.? This CT examination was performed using dose optimization techniques as appropriate, variously including the following: *Automated exposure control *Adjustment of mA and/or kV according to patient size (this includes techniques or standardized protocols for targeted exams where dose is matched to indication/reason for exam; i.e. extremities or head) *Use of iterative reconstruction technique DLP: 131 mGy-cm FINDINGS: WASTEWATER TREATMENT ENGINEER: Hyperinflated lungs. LUNGS: There is centrilobular and paraseptal emphysema. Patchy atelectatic changes left upper lobe and mild thickening of left minor fissure. A 2 mm nodular density is seen, axial image 157/7, stable, a 5 mm and a 4 mm calcified nodules adjacent to each other? in left lower lobe axial image 330/5 are stable. Focal atelectatic changes are seen in the right lung base. There are no solid pulmonary nodules seen at this time. Especially the right upper lobe nodules described on last CT chest are not visualized. A calcified 2 mm nodule is seen in the right upper lobe on axial image 262/5.? MEDIASTINUM: The thyroid lobes are symmetrical and normal. The central trachea and the bronchi are widely patent. The heart size is normal. There is mild aneurysmal dilatation of ascending aorta measuring 4.4 x 4.5 cm on axial slice 35/3. No abnormal mediastinal lymph nodes seen. The thyroid lobes are symmetric and normal.? CORONARY ARTERY CALCIFICATION: Moderate to significant coronary artery calcifications are seen. PLEURA: There is no pleural effusion. No pleural mass or thickening.? AXILLA: No abnormal lymph nodes seen in the axilla. The chest wall is unremarkable.? UPPER ABDOMEN: Visualized liver, spleen, pancreas and bilateral adrenal glands are unremarkable.? OSSEOUS STRUCTURES: No aggressive lytic or sclerotic process seen.? CT/CT chest wo IV con IMPRESSION: 1. Diffuse centrilobular and paraseptal emphysema with atelectatic changes. Several of the right upper lobe pulmonary nodules have resolved. 2 adjacent calcified nodules left lower lobe are stable. No new nodules seen. No consolidation. ? 2. No abnormal mediastinal or axillary lymphadenopathy.? ? Fleischner guidelines were followed. Dictated By: Israel Pearson MD Signed By: <Electronically signed by Israel Pearson MD in OV> 02/14/23 1521 DD/ 0920 TD/TT:? Rivet Sorter: [facility] Assessment & Plan Assessment & Plan (1) COPD (chronic obstructive pulmonary disease): Code(s): J44.9 - Chronic obstructive pulmonary disease, unspecified Qualifiers: COPD type: chronic bronchitis Chronic bronchitis type: mixed simple and mucopurulent Qualified Code(s): J41.8 - Mixed simple and mucopurulent chronic bronchitis (2) Dyspnea: Code(s): R06.00 - Dyspnea, unspecified Qualifiers: Dyspnea type: dyspnea on exertion Qualified Code(s): R06.00 - Dyspnea, unspecified (3) Pulmonary nodules: Code(s): R91.8 - Other nonspecific abnormal finding of lung field Plan Nebulizer therapy as needed start combivent Repeat CT chest in 1 year continue with rehab F/U 8-12 months Orders: Orders CT chest wo IV con 364 Days R91.8 - Other nonspecific abnormal finding of lung field Medications: New ipratropium-albuterol 20-100 mcg/actuation (Combivent Respimat) space evenly during waking hours 1 puff inhalation QID 4 grams 11RF Coding Level of Care Code Est Pt Level 4 (07143) Diagnoses COPD (chronic obstructive pulmonary disease) J41.8 COPD type: chronic bronchitis Chronic bronchitis type: mixed simple and mucopurulent Dyspnea R06.00 Dyspnea type: dyspnea on exertion Pulmonary nodules R91.8 Time Spent (min) 18
== END 2023-04-04 08:46 | disposition home or self-care (01) ==
PROVIDERS: PCP Family Medicine; Visit Provider Hospitalist
DX: J41.8 Mixed simple and mucopurulent chronic bronchitis (principal); R06.00 Dyspnea, unspecified; R91.8 Other nonspecific abnormal finding of lung field
CPT/HCPCS: 99214

== ENCOUNTER → 2023-04-04 08:12 | Outpatient (BNVA) | payer MEDICARE, SELFPAY | PROVIDERS: Visit Provider Hospitalist | DX: J41.8 Mixed simple and mucopurulent chronic bronchitis (principal); R91.8 Other nonspecific abnormal finding of lung field; R06.00 Dyspnea, unspecified | CPT/HCPCS: 99212 ==

== ENCOUNTER → 2023-07-23 07:49 | Outpatient (REF) | payer MEDICARE, SELFPAY ==
--- NOTE | 2023-07-23 07:52 | CA_ITS ---
Transthoracic Echocardiogram Patient (Last, First, Middle): Moise Gomez, Gender: Male Date of : 1955 Age: 68 Procedure Date: 07/23/2023 Procedure Type: Transthoracic Echocardiogram Location: OP Height: 175.26 cm Weight: 66.68 kg BSA: 1.81 m2 Heart Rate: 55 bpm BP: 130 / 68 mmHg Manager Income Tax: SB Referring MD: Dav Mukherjee MD Dressmaker Garment Fitter: Fermín Rodriguez MD Symptoms: I71.2 - Thoracic aortic aneurysm, without rupture Study Quality: Fair ECG Rhythm: Sinus bradycardia with PVCs Conclusions: - 1. Normal LV ejection fraction of 65-70% with impaired relaxation filling pattern 2. Mild mitral calcification with trivial aortic regurgitation 3. Mildly dilated ascending aorta at 4.3 cm which is further enlarged compared to prior study of 3.9 cm 4. No gross pericardial effusion Findings Left Ventricle Normal left ventricular size, thickness, and systolic function. The visually estimated ejection fraction is between 65-70%. Spectral Doppler is indicative of an impaired relaxation filling pattern. E/E prime ratio is between 8 and 15 consistent with indeterminate filling pressures. Right Ventricle Normal right ventricular cavity size and systolic function. Atria The left atrium is likely dilated. There is no evidence of interatrial shunt. The right atrium is normal in size. Aortic Valve Normal aortic valve structure and function. There is no aortic valve stenosis. There is trace (trivial) aortic valve regurgitation. Mitral Valve There is mild anterior and posterior mitral leaflet thickening. There is mild mitral annular calcification. There is trace mitral valve regurgitation. There is no mitral valve stenosis. Pulmonic Valve The pulmonic valve is likely normal. There is trace pulmonic valve regurgitation. Tricuspid Valve Likely normal tricuspid valve structure and function. Tricuspid regurgitation envelope is inadequate for calculation of right ventricular systolic pressure. Normal right atrial pressure. Great Vessels The pulmonary artery was not well visualized. There is mild dilatation of the ascending aorta measuring 4.30 cm. Venous The inferior vena cava is normal in size and collapses greater than 50% with inspiration. Pericardium/Pleural There is no evidence of pericardial effusion. Prior Study Comparison Changes noted compared to prior study dated: 12/28/2021. Ascending aortic size is further increased to 4.3 cm Measurements 2D Linear Measurements IVSd: 0.99 0.6-0.9/0.6-1.0 cm LVIDd: 4.81 3.9-5.3/4.2-5.9 cm LVIDd Index: 2.66 2.4-3.2/2.2-3.1 cm/m2 LVIDs: 2.95 2.0-3.6 cm LVPWd: 0.68 0.7-1.1 cm LA Diam: 3.60 2.7-3.8/3.0-4.0 cm LAIDs Index: 1.99 1.5-2.3 cm/m2 LV Mass: 166.59 67-162/88-224 g LV Mass Index: 92.04 43-95/49-115 g/m2 LVOT Diam: 2.30 3.0+(-)1.3 cm 2D Systolic Function EF 4C: 72.20 >55% EF 2C: 69.50 >55% EF BiP: 69.90 >55% Mitral Valve MV Pk E: 0.72 MV PK A: 0.81 MV Decel Time: 175.00 E/A: 0.90 E'Lateral: 8.49 E'Medial: 6.42 E/E' Med: 11.30 E/E' Lat: 8.50 PHT: 51.00 MVA PHT: 4.31 Decel [place]: 4.15 Aortic Valve AoV Pk Joel: 1.40 AoV Mn Joel: 0.98 AoV VTI: 0.31 AoV Pk Grad: 8.00 Aov Mn Grad: 4.00 HAIM Cont.VTI: 3.50 LVOT LVOT Pk Joel: 1.16 LVOT Mn Joel: 0.74 LVOT VTI: 0.26 LVOT Pk Grad: 5.00 LVOT Mn Grad: 3.00 LVOT Diam: 2.30 LVOT Area: 4.15 Diastolic Function MV Pk E: 0.72 MV Pk A: 0.81 E/A: 0.90 E'Medial: 6.42 E/E' Med: 11.30 E' Laterial: 8.49 E/E' Lat: 8.50 Right Ventricle TAPSE (mm): 21.70 TVS' Joel: 10.90 Tricuspid Valve RA Press: 3.00 Great Vessels Aorta Sinus of Valsalva: 3.60 2.0-3.5 cm Ao Asc: 4.30 2.1-3.4 cm Ao Arch: 3.40 Pulmonary Valve PV Pk Joel: 0.98 Peak PV Grad: 4.00 Updated in Other Vendor System with Status of Final Fermín Rodriguez MD electronically signed on 07/23/2023 12:18:35 PM with status of Final
== END ==
LOC: HO.CARD 07:49
PROVIDERS: PCP Family Medicine; Visit Provider Internal Medicine
DX: I71.20 Thoracic aortic aneurysm, without rupture, unspecified (principal)
CPT/HCPCS: 93306

== ENCOUNTER → 2023-07-23 07:52 | Outpatient (BNV) | payer MEDICARE, SELFPAY | PROVIDERS: PCP Family Medicine; Visit Provider Internal Medicine Cardiovascular Disease | DX: I34.81 Nonrheumatic mitral (valve) annulus calcification (principal) | CPT/HCPCS: 93306 ==

== ENCOUNTER 2023-08-07 08:13 | Outpatient (AMB) | payer MEDICARE, SELFPAY ==
[2023-08-07 08:23] VITALS: BP 110/70; PULSE 60; BMI 22.5
--- NOTE | 2023-08-07 08:23 | A.OFFVIS_ITS ---
Intake Vital Signs 08/07/23 08:23 Height 5 ft 9 in Weight 152 lb 1.903 oz BMI 22.5 BP 110/70 Blood Pressure Location Lt brachial Position Sitting Pulse 60 Intake Visit Reasons: 6 month follow up Intake Note: 6 month follow up Bird Raiser Required: No Accompanied by: Self / Same As Patient Allergies nystatin [From Bio-Statin] Allergy (Severe, Verified 08/07/23 08:23) liver meperidine [From Demerol] Allergy (Mild, Verified 08/07/23 08:23) Nausea and Vomiting Medication List - Last Reconciled 08/07/23 by Dav Mukherjee MD amlodipine 10 mg PO DAILY aspirin (Adult Low Dose Aspirin) 81 mg PO DAILY clopidogrel 75 mg PO DAILY doxazosin 4 mg PO DAILY ipratropium-albuterol 20-100 mcg/actuation (Combivent Respimat) 1 puff inhalation QID metoprolol succinate ER 25 mg PO DAILY multivitamin 1 tab PO DAILY nitroglycerin 0.4 mg sublingual Q5M PRN rosuvastatin (Crestor) 20 mg PO DAILY HPI HPI Comments History of Present Illness Details Moise returns for follow-up regarding coronary disease. He was seen for shortness of breath. Cardiac catheterization with multivessel disease. Initially, LAD was stented. However, he was still symptomatic which led to circumflex stenting. Patient states he does not have any chest pains. Shortness of breath is just about the same as before. Otherwise, no new complaints. [facility] Medical History (Updated 08/07/23 @ 08:34 by Dav Mukherjee MD) Personal history of nicotine dependence Dyspnea COPD (chronic obstructive pulmonary disease) Essential hypertension Surgical History History of cardiac catheterization (~06/20/22) History of back surgery Family History Father CVD (cardiovascular disease) Mother Stroke Social History Alcohol intake: current Alcohol intake frequency: a few times a week Patient Tobacco Use Status: Former Tobacco user Years Smoked: 33 (onset 14, smoked off/on 52yrs for total 33yrs, 1ppd max, 30pyh) Review of Systems Const Denies weakness ENT Denies dizziness Card Denies chest pain, Denies chest pain with activity, Denies syncope, Denies rapid heart rate, Denies pedal edema, Denies edema, Denies leg edema, Denies lightheadedness, Denies palpitations, Denies dyspnea, Denies dyspnea on exertion and Denies orthopnea Resp Denies cough, Denies dyspnea and Denies dyspnea on exertion GI Denies hematochezia and Denies change in stool character Musc Denies abnormal gait, Denies muscle cramps, Denies muscle weakness, Denies numbness, Denies radiating pain into limb and Denies tingling Neuro Denies abnormal gait, Denies dizziness, Denies syncope, Denies numbness, Denies tingling and Denies weakness Endo Denies palpitations Physical Exam Vital Signs: Last Vital Signs Pulse 60 08/07/23 08:23 BP 110/70 08/07/23 08:23 BMI result Body Mass Index 22.5 Const General: comfortable and no acute distress Orientation/consciousness: patient oriented x3 HEENT Other: Unremarkable Head: Yes normal to inspection Neck Neck: Yes normal visual inspection Chest Chest palpation & inspection: normal inspection of the chest Resp Auscultation: clear to auscultation bilaterally Cardio Palpation: normal PMI Heart sounds: S1 normal heart sound present, S2 normal heart sound present, no gallops, no murmurs and no rubs GI Palpation (GI): Soft to palpation Back/Spine/Pelvis Other: unremarkable Skin General skin exam: no rashes or lesions noted Neuro General: patient oriented x3 Extrem General: Yes normal to inspection Psych Mental Status: mental status grossly normal Office Procedures EKG Details: EKG with sinus rhythm at 60/Min; T inversions across precordial leads but this has been seen before. [place] [id number], Complete Assessment & Plan Assessment & Plan (1) Atherosclerotic cardiovascular disease: Code(s): I25.10 - Atherosclerotic heart disease of [place] coronary artery without angina pectoris Plan: Status post LAD as well as circumflex stenting. He also has chronic total occlusion of right coronary artery. Long-term aspirin. Plavix can be continued for the foreseeable future considering multivessel disease/PCI. (2) Ascending aortic aneurysm: Code(s): I71.2 - Thoracic aortic aneurysm, without rupture Qualifiers: Presence of rupture: without rupture Qualified Code(s): I71.21 - Aneurysm of the ascending aorta, without rupture Plan: In the ungated chest CT scan, ascending aortic size was 4.5 cm. Echocardiographic dimensions are comparable at 4.3 cm. (3) Essential hypertension: Code(s): I10 - Essential (primary) hypertension Plan: Stable. Continue amlodipine. (4) Other and unspecified hyperlipidemia: Code(s): E78.5 - Hyperlipidemia, unspecified Plan: On statins. Was on Zetia but he states he may not be taking it but not sure. Need to check with pharmacy. However, LDL is well controlled at 55 mg/dL. Triglycerides 59 mg/dL. Coding Level of Care Code Est Pt Level 4 (55498) Diagnoses Atherosclerotic cardiovascular disease I25.10 Aneurysm of ascending aorta without rupture I71.21 Presence of rupture: without rupture Essential hypertension I10 Other and unspecified hyperlipidemia E78.5 CPT Codes EKG - CPT: 53056-[id number], Complete ([id number])
== END 2023-08-07 08:44 | disposition home or self-care (01) ==
PROVIDERS: Visit Provider Internal Medicine
DX: I25.10 Atherosclerotic heart disease of native coronary artery without angina pectoris (principal); I71.21 Aneurysm of the ascending aorta, without rupture; I10 Essential (primary) hypertension; E78.5 Hyperlipidemia, unspecified
CPT/HCPCS: 93010; 99214

== ENCOUNTER → 2023-08-07 08:13 | Outpatient (BNVA) | payer MEDICARE, SELFPAY | PROVIDERS: Visit Provider Internal Medicine | DX: I25.10 Atherosclerotic heart disease of native coronary artery without angina pectoris (principal); I71.21 Aneurysm of the ascending aorta, without rupture; I10 Essential (primary) hypertension; E78.5 Hyperlipidemia, unspecified | CPT/HCPCS: 93005; 99212 ==

== ENCOUNTER 2023-09-05 06:09 | Outpatient (REF) | payer MEDICARE, SELFPAY ==
[2023-09-05 07:18] LABS: Estimated Average Glucose 146 mg/dL; Hemoglobin A1c % 6.7 % (<6.0)
[2023-09-05 07:30] LABS: Alanine Aminotransferase 30 U/L (0-40); Anion Gap 12 (12-20); Aspartate Amino Transferase 24 U/L (5-37); Blood Urea Nitrogen 15 mg/dL (9-16); Carbon Dioxide 26 mmol/L (22-29); Chloride 108 mmol/L (96-108); Estimated Glomerular Filt Rate > 60; Glucose Fasting 142 mg/dL (60-99); Potassium 4.1 mmol/L (3.3-5.1); Sodium 142 mmol/L (135-145)
== END 2023-09-05 06:10 | disposition home or self-care (01) ==
LOC: HO.LAB 06:09
PROVIDERS: PCP Family Medicine; Visit Provider Family Medicine
DX: I10 Essential (primary) hypertension (principal); E78.00 Pure hypercholesterolemia, unspecified; E11.9 Type 2 diabetes mellitus without complications; Z79.899 Other long term (current) drug therapy
CPT/HCPCS: 36415; 80051; 82550; 82565; 82947; 83036; 84450; 84460; 84520

== ENCOUNTER 2023-10-25 09:49 | Outpatient (REF) | payer MEDICARE, SELFPAY ==
--- NOTE | ~2023-10-25 | US_ITS ---
EXAMINATION: US EXTRACRANIAL CAROTID DUPLEX, BILATERAL CLINICAL INFORMATION: Atherosclerosis. COMPARISON: None available. TECHNIQUE: Real-time ultrasound and Doppler techniques (integrating B-mode 2-D vascular images, Doppler spectral analysis and color-flow Doppler imaging) were utilized to interrogate the extracranial carotid arteries, the vertebral arteries and proximal subclavian arteries bilaterally. The degree of stenosis is determined by criteria similar to NASCET. FINDINGS: Right Side: 1. There is moderate atherosclerotic plaque seen in the bifurcation/proximal ICA region. 2. The common carotid artery PSV proximally is 82 cm/s and distally 77 cm/s. 3. The proximal internal carotid artery velocities are 62 cm/s systolic and 16 cm/s diastolic. 4. The proximal external carotid artery PSV is 133 cm/s. 5. The vertebral artery shows antegrade flow. 6. The subclavian artery waveforms are normal. Left Side: 1. There is moderate atherosclerotic plaque seen in the bifurcation/proximal ICA region. 2. The common carotid artery PSV proximally is 91 cm/s and distally 68 cm/s. 3. The proximal internal carotid artery velocities are 146 cm/s systolic and 54 cm/s diastolic. 4. The proximal external carotid artery PSV is 117 cm/s. 5. The vertebral artery shows antegrade flow. 6. The subclavian artery waveforms are normal. US/US carotid duplex BI IMPRESSION: 1. RIGHT: Minimal, non-hemodynamically significant stenosis of the proximal right internal carotid artery corresponding to a 0-49% stenosis by velocity criteria. 2. LEFT: Moderate, hemodynamically significant stenosis of the proximal left internal carotid artery corresponding to a 50-79% stenosis by velocity criteria.
== END 2023-10-25 09:50 | disposition home or self-care (01) ==
LOC: HO.US 09:49
PROVIDERS: PCP Family Medicine; Visit Provider Family Medicine
DX: I25.10 Atherosclerotic heart disease of native coronary artery without angina pectoris (principal); R09.89 Other specified symptoms and signs involving the circulatory and respiratory systems
CPT/HCPCS: 93880

== ENCOUNTER 2024-02-04 08:31 | Outpatient (REF) | payer MEDICARE, SELFPAY ==
--- NOTE | ~2024-02-04 | CT_ITS ---
EXAMINATION: CT LOW-DOSE SCREENING CHEST WITHOUT CONTRAST CLINICAL INFORMATION: Personal history of nicotine dependence. The patient has a 40 pack-year history of smoking, having quit 4 years ago. COMPARISON: CT chest 02/07/2023 and chest x-ray 11/25/2020. TECHNIQUE: Multidetector volumetric CT imaging of the chest is performed on a Siemens SOMATOM Definition scanner without contrast using low dose technique. Additional 2D coronal and sagittal reformatted images and axial 3D maximum intensity projection (MIP) images are generated on the CT workstation. This CT examination was performed using dose optimization techniques as appropriate, variously including the following: *Automated exposure control *Adjustment of mA and/or kV according to patient size (this includes techniques or standardized protocols for targeted exams where dose is matched to indication/reason for exam; i.e. extremities or head) *Use of iterative reconstruction technique TOTAL EXAM DLP: 48.1 mGy-cm. CTDIvol: 1.37 mGy. FINDINGS: PULMONARY NODULES: There is a new 2 mm nodule in the right upper lobe abutting the major fissure posteromedially (5:231). There is a 3 mm opacity in the right middle lobe likely inspissated mucus and bronchus which is unchanged when compared to the prior study (5:250 compare prior 5:317). A 4 mm calcified granuloma is again seen in the left lower lobe (5:270). No suspicious pulmonary nodule or mass is seen. LUNGS: Lungs bilaterally symmetrically expanded. Nrtu-[id number] emphysematous changes are seen along with bronchial thickening. There is plate-like atelectasis seen in the left upper lobe as well as right lower lobe. Some traction bronchiectasis is present in the right lower lobe (5:391). No effusion or pneumothorax. Central airways patent. MEDIASTINUM: No mediastinal, hilar or axillary adenopathy or free fluid collection. CORONARY ARTERY CALCIFICATION: Extensive. THYROID GLAND: Unremarkable to the extent seen. CARDIOVASCULAR STRUCTURES: The ascending aorta is dilated at 4.8 cm in maximal transverse dimension at the level of the main pulmonary artery compared with 4.6 cm previously. A 3-D model was created and maximum measurement is 4.7 cm (see robins image). Heart size normal. No pericardial effusion. CHEST WALL/AXILLA: Unremarkable. UPPER ABDOMEN: Included portions of the solid organs in the upper abdomen unremarkable on noncontrast imaging. OSSEOUS STRUCTURES: No suspicious focal findings. CT/CT lung screening IMPRESSION: 1. No suspicious pulmonary nodules. 2. Bcea-rq-[id number] emphysema. 3. Dilated ascending aorta at 4.7 cm. 4. Incidental findings (s category): Ascending aortic aneurysm. 5. There is a new 2 mm nodule in the right upper lobe abutting the major fissure posteromedially (5:231). ASSESSMENT: 1. Lung-RADS Category 2: Benign appearance or behavior of nodules. N/A RECOMMENDATION: Continued routine annual low-dose CT lung screening in 1 year is recommended. An order for CT CHEST LOW DOSE CANCER SCREENING ([id number]) can be placed.
== END 2024-02-04 08:32 | disposition home or self-care (01) ==
LOC: HO.CT 08:31
PROVIDERS: PCP Family Medicine; Visit Provider Nurse Practitioner Family
DX: Z12.2 Encounter for screening for malignant neoplasm of respiratory organs (principal); Z87.891 Personal history of nicotine dependence
CPT/HCPCS: 71271

== ENCOUNTER 2024-03-12 06:04 | Outpatient (REF) | payer MEDICARE, SELFPAY ==
[2024-03-12 06:20] LABS: MANUAL DIFF FLAG NO
[2024-03-12 07:23] LABS: Basophils Percent Auto 0.6 % (0-2); Eosinophils Absolute Auto 0.2 X10*3/uL (0.0-0.4); Eosinophils Percent Auto 3.2 % (0-4); Hematocrit 43.3 % (42.0-52.0); Hemoglobin 15.1 g/dl (14.0-18.0); Imm Gran Abs Auto 0.01 X10*3/uL (0.00-0.03); Imm Gran Pct Auto 0.2 % (0.0-0.4); Lymphocytes Absolute Auto 1.5 X10*3/uL (1.2-4.9); Lymphocytes Percent Auto 29.7 % (20-40); Mean Corpuscular HGB Conc 34.9 g/dl (31.0-36.0); Mean Corpuscular Hemoglobin 31.5 pg (27.0-33.0); Mean Corpuscular Volume 90.2 fL (80.0-98.0); Mean Platelet Volume 10.2 fL (9.4-12.4); Monocytes Absolute Auto 0.5 X10*3/uL (0.1-1.2); Monocytes Percent Auto 10.8 % (2-11); Neutrophils Absolute Auto 2.8 x10*3/uL (2.0-8.3); Neutrophils Percent Auto 55.5 % (45-73); Platelet Count 122 X10*3/uL (160-400); Red Cell Distribution Width 12.3 % (11.0-16.0)
[2024-03-12 07:30] LABS: Estimated Average Glucose 146 mg/dL; Hemoglobin A1c % 6.7 % (<6.0)
[2024-03-12 07:49] LABS: Alanine Aminotransferase 21 U/L (0-40); Anion Gap 15 (12-20); Aspartate Amino Transferase 20 U/L (5-37); Blood Urea Nitrogen 15 mg/dL (9-16); Carbon Dioxide 24 mmol/L (22-29); Chloride 108 mmol/L (96-108); Cholesterol 118 mg/dL (<200); Estimated Glomerular Filt Rate > 60; Glucose Fasting 166 mg/dL (60-99); HDL Cholesterol 60 mg/dL (>40); LDL Cholesterol Calculated 48 mg/dL (<100); Potassium 3.7 mmol/L (3.3-5.1); Sodium 143 mmol/L (135-145); Triglycerides 50 mg/dL (<150)
[2024-03-12 08:13] LABS: Creatinine Urine 154.64 mg/dL; Microalbum/Creatinine Ratio Ur 10.3 ug/mg cr (<30)
== END 2024-03-12 06:05 | disposition home or self-care (01) ==
LOC: HO.LAB 06:04
PROVIDERS: PCP Family Medicine; Visit Provider Family Medicine
DX: I10 Essential (primary) hypertension (principal); E11.9 Type 2 diabetes mellitus without complications; E78.00 Pure hypercholesterolemia, unspecified; R06.02 Shortness of breath; Z79.899 Other long term (current) drug therapy
CPT/HCPCS: 36415; 80051; 80061; 82043; 82550; 82565; 82570; 82947; 83036; 84450; 84460; 84520; 85025

== ENCOUNTER 2024-04-23 11:29 | Observation (INO) | payer MEDICARE, SELFPAY ==
[2024-04-23] VITALS (10 sets, daily range): BP systolic 117–143; BP diastolic 72–91; PULSE 74–96; RESP 14–25; TEMP 36–36.5; O2SAT 87–97; BMI 22.1; BMI 22.0
--- NOTE | ~2024-04-23 | XR_ITS ---
EXAMINATION: XR CHEST CLINICAL INFORMATION: Patient states shortness of breath and wheezing. COMPARISON: CT lung 02/04/2024, chest x-ray 11/25/2020. TECHNIQUE: Frontal view of the chest was obtained. FINDINGS: The lungs remain hyperinflated with emphysematous changes, better characterized on previous CT scan. Heart size is normal. Degenerative changes in the thoracic spine. No significant pleural effusion. There is no gross pneumothorax. Increased density and prominence of the kay, particularly on the left. Increased left perihilar patchy linear and stranding opacities, possibly postsurgical in nature were not appreciated on the prior exam. Vascular stents project over the upper heart on the left. XR/XR chest 1V IMPRESSION: 1. Increased density and prominence of the kay, more prominent on the left. 2. Increased left perihilar patchy linear and stranding opacities. Differential considerations include atelectasis, postsurgical change, although an infectious/inflammatory process should also be considered in the appropriate clinical setting. 3. CT scan of the chest could be considered for further evaluation. This study was presented today April 23, 2024 for interpretation. Stat results provided at this time as requested by referring provider.
--- NOTE | ~2024-04-23 | CT_ITS ---
EXAMINATION: CT CHEST WITH CONTRAST CLINICAL INFORMATION: Shortness of breath. COMPARISON: 02/04/2024 and 04/08/2021 TECHNIQUE: Multidetector volumetric CT imaging of the chest was obtained after the administration of 65 mL of Omnipaque 350 intravenous contrast without immediate adverse reactions. Axial MIP volume rendering provided. Sagittal and coronal reformatted images were obtained. This CT examination was performed using dose optimization techniques as appropriate, variously including the following: *Automated exposure control *Adjustment of mA and/or kV according to patient size (this includes techniques or standardized protocols for targeted exams where dose is matched to indication/reason for exam; i.e. extremities or head) *Use of iterative reconstruction technique DLP: 282 mGy-cm FINDINGS: LUNGS: Moderate centrilobular emphysema. 3 mm nodule right upper lobe on image 120. 4 mm nodule left lower lobe on image 274. These nodules are stable relative to prior imaging. No new or enlarging pulmonary nodules. Central airways are patent. MEDIASTINUM: No bulky mediastinal or hilar lymphadenopathy. Ascending thoracic aorta measures 4.3 x 4.6 cm in transverse dimension. Heart size is normal. No pericardial effusion. PLEURA: No pleural effusion. AXILLA: No axillary lymphadenopathy. UPPER ABDOMEN: Hepatic steatosis. Few pancreatic calcifications. No adrenal mass. Retroaortic left renal vein. Infrarenal abdominal aorta measures 3.1 x 2.8 cm with eccentric mural thrombus. OSSEOUS STRUCTURES: No destructive bone lesions. CT/CT chest w IV con IMPRESSION: Moderate emphysematous changes. Few pulmonary nodules measuring up to 4 mm stable relative to prior imaging. Aneurysmal dilatation of the ascending thoracic aorta which measures 4.3 x 4.6 cm. Infrarenal abdominal aorta measures 2.8 x 3.1 cm. Recommend follow-up every 3 years. Reference: J Am Cydney Radiol 2013; 10 (10): 789-794.
--- NOTE | 2024-04-23 11:31 | ED_ITS ---
HPI - SOB/Dyspnea General Chief Complaint: Dyspnea Stated Complaint: sob Time Seen by Provider: 04/23/24 11:55 Source: patient Mode of arrival: ambulatory Limitations: no limitations History of Present Illness ED Provider: Inocencia Moses PA-C HPI Narrative: 69 year old male with PMH of COPD, HTN, Hyperlipidemia, multiple cardiac catherizations with stents, and an ascending aortic aneurysm presents today with difficulty breathing and shortness of breath that has been worsening for 2 weeks. Patient and the state that patient is usually slightly short of breath when walking or exerting effort due to COPD, however he has gotten significantly worse over the last 2 weeks and normal breathing treatments at home are not effective. States that he has had difficulty breathing at rest, and is gasping for air just walking 10-15 feet from the bathroom to the bed. States he has yellow phlegm when he coughs, and gets short of breath when coughing. He says that he is not having chest pain. Denies any fevers, headaches, muscle pain, abdominal pain, diarrhea, vomiting, nausea, palpitations. He denies any recent travel and denies any sick contacts. Is up to date on Covid vaccines, and did not receive RSV vaccine. He was a previous cigarette smoker, and used marijuana in the past - now only takes it in edible form since COPD diagnosis. MD elicited complaint: shortness of breath and cough Pertinent past history: COPD Onset (ago): week(s) (2) Timing: constant Severity: moderate Exacerbating factors: lying flat, exertion, movement, coughing, talking and humidity Known history of: COPD Associated symptoms: cough and sputum production Treatment prior to arrival: oxygen and bronchodilator Related Data Home oxygen amount: none Home Medications ?Medication ?Instructions ?Recorded ?Confirmed amlodipine 10 mg tablet 10 mg PO DAILY 01/19/21 08/07/23 aspirin 81 mg tablet,delayed 81 mg PO DAILY 01/19/21 08/07/23 release (Adult Low Dose Aspirin) multivitamin 1 tab PO DAILY 01/19/21 08/07/23 doxazosin 4 mg tablet 4 mg PO DAILY 03/03/22 08/07/23 Previous Rx's ?Medication ?Instructions ?Recorded nitroglycerin 0.4 mg sublingual 0.4 mg sublingual Q5M PRN chest 07/03/22 tablet pain #30 tabs ipratropium 20 mcg-albuterol 100 1 puff inhalation QID #4 grams 04/04/23 mcg/actuation mist for inhalation (Combivent Respimat) clopidogrel 75 mg tablet 75 mg PO DAILY #90 tabs 07/23/23 rosuvastatin 20 mg tablet 20 mg PO DAILY #90 tabs 08/13/23 metoprolol succinate 25 mg 25 mg PO DAILY #90 tabs 01/10/24 tablet,extended release 24 hr Allergies Allergy/AdvReac Type Severity Reaction Status Date / Time nystatin [From Bio-Statin] Allergy Severe liver Verified 04/23/24 11:33 meperidine [From Demerol] Allergy Mild Nausea and Verified 04/23/24 11:33 Vomiting Review of Systems 2 Review of Systems: Yes all other systems are reviewed and are negative Constitutional: Constitutional: Reports no additional constitutional complaints, Denies chills, Reports fatigue, Denies fever(s) and Denies night sweats Eyes: Eyes: Reports no additional eye complaints, Denies blurry vision, Denies change in vision, Denies diplopia, Denies eye discharge, Denies loss of vision and Denies eye pain ENT: Denies dizziness Cardiovascular: Cardiovascular: Reports no additional cardiovascular complaints, Denies chest pain, Denies lightheadedness, Denies Loss of Consciousness, Reports dyspnea, Reports dyspnea on exertion and Reports orthopnea Respiratory: Respiratory: Reports no additional respiratory complaints, Reports change in phlegm color (yellow), Reports cough, Reports dyspnea and Reports dyspnea on exertion Gastrointestinal: Gastrointestinal: Reports no additional gastrointestinal complaints, Denies abdominal pain, Denies melena, Denies hematochezia, Denies change in bowel habits and Denies change in stool character Genitourinary: Genitourinary: Reports no additional male genitourinary complaints, Denies hematuria, Denies oliguria, Denies difficulty urinating, Denies dysuria, Denies urinary frequency, Denies urinary hesitancy, Denies urinary incontinence and Denies urinary urgency Musculoskeletal: Musculoskeletal: Reports no additional musculoskeletal complaints, Denies numbness and Denies tingling Integumentary/Breasts: Skin/Breast: Reports system reviewed and no additional complaints, except as docu Neurologic: Reports system reviewed and no additional complaints, except as documented, Denies dizziness, Denies loss of vision, Denies numbness and Denies tingling Psychiatric: Psychiatric: Reports no additional psychiatric complaints Endocrine: Endocrine: Reports no additional endocrine complaints and Reports fatigue Hematologic/Lymphatic: Hematologic/Lymphatic: Reports no additional hematologic/lymphatic complaints Allergic/Immunologic: Allergic/Immunologic: Reports no additional allergic/immunologic complaints PMFSH Past Medical History Attestation statement: The following information was validated with the patient. (all information validated with the patient's ) Source: old records reviewed, obtained from family (patient's provided additional history and confirmed the history provided by the patient) and nursing notes reviewed Medical History Personal history of nicotine dependence Dyspnea COPD (chronic obstructive pulmonary disease) Essential hypertension Surgical History History of cardiac catheterization (~06/20/22) History of back surgery Family History Family History Father CVD (cardiovascular disease) Mother Stroke Social History Social History Alcohol intake: current Alcohol intake frequency: a few times a week Patient Tobacco Use Status: Former Tobacco user Years Smoked: 33 (onset 14, smoked off/on 52yrs for total 33yrs, 1ppd max, 30pyh) Smoked in Last 30 Days: No Use of substances other than those prescribed or required for medical reasons: No Advance Directives: No Advance Directives Information Provided: Yes Physical Exam 2 Vital Signs: Vital Signs: Last Vital Signs Temp 97.7 F 04/23/24 12:38 Pulse 90 04/23/24 14:33 Resp 25 H 04/23/24 14:33 BP 138/81 04/23/24 14:00 Pulse Ox 87 L 04/23/24 14:33 O2 Del Method Room Air 04/23/24 15:44 O2 Flow Rate 93 04/23/24 15:44 BMI result Body Mass Index 22.1 Const: General: cooperative, alert, awake and in distress Nutritional Appearance: well nourished Orientation/consciousness: patient oriented x3 Limitations: no limitations HEENT: Head: Yes normal to inspection and Yes atraumatic Ears: hearing grossly normal bilaterally and external ears normal General nose exam: Normal external nose present, no nasal discharge noted and no epistaxis Face and sinus: Yes normal facial exam, No abrasion and No laceration Mouth: Normal oral and palatal mucosa present, lip normal, tongue normal, no drooling and no muffled voice Eyes: General: appearance normal, both eyes and all related structures P eriorbital: periorbital findings normal Eyelids: Yes eyelids normal C onjunctivae: conjunctivae normal Pupils: Equal, round and reactive pupils present EOM: EOMs intact bilaterally Neck: Neck: Yes normal visual inspection, Yes full ROM and Yes no lymphadenopathy Chest: Chest palpation & inspection: normal inspection of the chest Resp: Effort & Inspection: normal respiratory effort and able to speak in complete sentences Auscultation: diminished lung sounds diffuse Cardio: Rate: regular rate Rhythm: regular rhythm Heart sounds: S1 normal heart sound present and S2 normal heart sound present Peripheral pulses: Peripheral pulses 2+ throughout GI: Inspection: Yes normal to inspection Skin: General skin exam: no rashes or lesions noted Lesions: no lesions Rashes: no rashes Trauma: no lacerations or abrasions Wounds: no wounds Neuro: General: patient oriented x3 and moves all extremities Cranial nerves: Yes Equal, round and reactive pupils present and Yes Midline tongue present Cognition (Neuro): normal cognition Extrem: General: Yes normal to inspection, Yes full ROM and Yes capillary refill normal Psych: Appearance: grossly normal Mental Status: mental status grossly normal Affect: normal affect Attitude: cooperative Thought process: N ormal thought process present Thought content: Normal thought content present Insight: Good insight present (Psych) Course Course Course Narrative: This is a Rapid Medical Exam performed in triage by Cira Collier PA-C. Full HPI, ROS and PE to be performed by primary ED provider. 69 year-old M w/ PMHx COPD, CAD on Plavix, HTN, presenting to the ED c/o productive cough of yellow phlegm x2 weeks with insomnia and decreased PO intake. PE: satting 91% on RA, tachypneic, lungs diminished throughout. Plan: EKG, labs, CXR, viral testing Medications Administered Generic Name Dose Route Start Last Admin Trade Name Freq PRN Reason Stop Dose Admin Ceftriaxone Sodium 1 gm/ 50 mls @ 100 mls/hr 04/23/24 15:30 04/23/24 15:41 Sodium Chloride IV 04/23/24 15:59 100 mls/hr ONCE ONE Administration Discontinued Medications Generic Name Dose Route Start Last Admin Trade Name Sandra PRN Reason Stop Dose Admin Albuterol/Ipratropium 3 ml 04/23/24 12:04 04/23/24 12:25 Albuterol/Iprat 2.5/0.5mg 3 Ml Ampul.Neb INHALE 04/23/24 12:05 3 ml ONCE ONE Administration Iohexol 100 ml 04/23/24 14:18 04/23/24 14:18 Iohexol 350 Mg/Ml 100 Ml Infus..Btl IV 04/23/24 14:19 65 ml ONCE ONE Administration Methylprednisolone Sodium Succinate 60 mg 04/23/24 11:55 04/23/24 12:14 Methylprednisolone Sod Succ 125 Mg/2 Ml Vial IVPUSH 04/23/24 11:56 60 mg ONCE ONE Administration Medical Decision Making Medical Decision Making [facility] Narrative: Patient is a 69 year old assigned male at with a history of COPD, CAD, HTN, and an aorta aneurysm presenting to the emergency department today with shortness of breath. Patient's physical exam was as noted in the physical exam portion of this note. Patient desaturated to 86-87% on room air while ambulating. When resting, he was up to 94% on RA. Patient's blood work was unremarkable. Patient's EKG was unremarkable. Patient's chest x-ray showed worsening left opacities which rad recommended a CT chest to further examine. Patient's CT chest is pending at this time. Patient's clinical presentation is not consistent with sepsis @1550. I explained my physical exam findings as well as all test results to the patient and the patient's . I answered all questions asked by the patient and the patient's . Patient received IV Solu- medrol and breathing treatments which he stated helped his symptoms some. I spoke to the hopsitalist team who agreed to admission. Patient and the patient's verbalized agreement and understanding with this treatment plan and admission. Differential Diagnosis Differential Diagnoses: The differential diagnosis associated with the presentation includes Viral illness COVID-19 Influenza RSV COPD exacerbation PNA Admission/Observation Consideration of admission/observation: Escalation of care including admission/observation considered Patient admitted. Consult Healthcare Provider Management of the patient was discussed with: Hospitalist (spoke to the hospitalist as noted in the MDM Rationale portion of this note.) Lab Data [facility] Lab Attestation statement: I reviewed the patient's lab results. My interpretation of these results are in the MDM Rationale portion of this note. 04/23/24 12:01 04/23/24 12:01 Labs: Lab Results 04/23/24 04/23/24 Range/Units 12:01 12:13 WBC 7.2 (4.8-10.8) X10*3/uL RBC 5.25 (4.60-5.80) X10*6/uL Hgb 16.5 (14.0-18.0) g/dl Hct 46.6 (42.0-52.0) % MCV 88.8 (80.0-98.0) fL MCH 31.4 (27.0-33.0) pg MCHC 35.4 (31.0-36.0) g/dl RDW 11.9 (11.0-16.0) % Plt Count 154 L D (160-400) X10*3/uL MPV 9.7 (9.4-12.4) fL Immature Gran % (Auto) 0.3 (0.0-0.4) % Neut % (Auto) 73.8 H (45-73) % Lymph % (Auto) 15.0 L (20-40) % Wells % (Auto) 7.8 (2-11) % Eos % (Auto) 2.5 (0-4) % Baso % (Auto) 0.6 (0-2) % Lymph # (Auto) 1.1 L (1.2-4.9) X10*3/uL Wells # (Auto) 0.6 (0.1-1.2) X10*3/uL Eos # (Auto) 0.2 (0.0-0.4) X10*3/uL Baso # (Auto) 0.0 (0.0-0.2) X10*3/uL Abs Immat Gran (auto) 0.02 (0.00-0.03) X10*3/uL Absolute Neuts (auto) 5.3 (2.0-8.3) x10*3/uL Absolute Nucleated RBC 0.000 (0.0-0.012) X10*3/uL Nucleated RBC % (auto) 0.0 (0.0-0.2) /100WBC PT 13.6 H (11.1-13.3) SEC INR 1.1 (0.9-1.1) Sodium 142 (135-145) mmol/L Potassium 3.9 (3.3-5.1) mmol/L Chloride 103 (96-108) mmol/L Carbon Dioxide 29 (22-29) mmol/L Anion Gap 14 (12-20) BUN 18 H (9-16) mg/dL Creatinine 0.93 (0.5-1.4) mg/dL Estim Creat Clear Calc 70.1 Estimated GFR > 60 Random Glucose 121 H (60-115) mg/dL Calcium 10.1 D (8.4-10.2) mg/dL Magnesium 2.0 (1.6-2.6) mg/dL Total Bilirubin 0.8 (0.0-1.0) mg/dL Direct Bilirubin 0.3 (0.0-0.5) mg/dL AST 24 (5-37) U/L ALT 21 (0-40) U/L Alkaline Phosphatase 72 (39-117) U/L Troponin I High Sens 3.1 (<3.5-35.0) ng/L B-Natriuretic Peptide < 10 (<100) pg/mL Total Protein 7.7 (6.5-8.0) g/dL Albumin 4.8 (3.5-5.0) g/dL Influenza Type A (PCR) NEGATIVE (Negative) Influenza Type B (PCR) NEGATIVE (Negative) RSV RNA Qual (PCR) NEGATIVE (Negative) SARS-CoV-2 RNA (RT-PCR) NEGATIVE (Negative) Independent Interpretation I performed an independent interpretation of an: EKG and Plain X-Ray Interpretation: My interpretation is in agreement with the radiologist's impression of this imaging study. - EXAMINATION: XR CHEST CLINICAL INFORMATION: Patient states shortness of breath and wheezing. COMPARISON: CT lung 02/04/2024, chest x-ray 11/25/2020. TECHNIQUE: Frontal view of the chest was obtained. FINDINGS: The lungs remain hyperinflated with emphysematous changes, better characterized on previous CT scan. Heart size is normal. Degenerative changes in the thoracic spine. No significant pleural effusion. There is no gross pneumothorax. Increased density and prominence of the kay, particularly on the left. Increased left perihilar patchy linear and stranding opacities, possibly postsurgical in nature were not appreciated on the prior exam. Vascular stents project over the upper heart on the left. XR/XR chest 1V IMPRESSION: 1. Increased density and prominence of the kay, more prominent on the left. 2. Increased left perihilar patchy linear and stranding opacities. Differential considerations include atelectasis, postsurgical change, although an infectious/inflammatory process should also be considered in the appropriate clinical setting. 3. CT scan of the chest could be considered for further evaluation. This study was presented today April 23, 2024 for interpretation. Stat results provided at this time as requested by referring provider Dictated By: Radha Golden MD Signed By: Electronically signed by Radha Golden MD 04/23/24 1323 - Vent. Rate: 088 BPM Atrial Rate: 088 BPM P-R Int: 164 ms QRS Dur: 090 ms QT Int: 372 ms P-R-T Axes: 083 075 084 degrees QTc Int: 450 ms Normal sinus rhythm Nonspecific ST and T wave abnormality Abnormal ECG When compared with ECG of 25-NOV-2020 10:35, Nonspecific T wave abnormality has replaced inverted T waves in Lateral leads QT has lengthened DD/ 1215 Radiology Impression Discussion of test interpretation with radiology: I have reviewed the radiologist's reading. Independent Historian Clinical information obtained from an independent historian. History obtained from or confirmed by: Spouse (patient's provided additional history and confirmed the history provided by the patient.) Critical Care Time Critical Care Time Critical Care Time: Yes Total Critical Care Time: 48 Attestation: I spent 48 minutes of Critical Care Time with this patient. This does not include time spent on separately reported billable procedures. Discharge Plan Discharge Clinical Impression: Hypoxia Patient Disposition: Admitted As Inpatient Prescriptions: No Action clopidogrel 75 mg tablet 75 mg PO DAILY Qty: 90 2RF Rx Instructions: Take one tab by mouth everyday rosuvastatin 20 mg tablet 20 mg PO DAILY Qty: 90 3RF metoprolol succinate 25 mg tablet extended release 24 hr 25 mg PO DAILY Qty: 90 2RF aspirin [Adult Low Dose Aspirin] 81 mg tablet,delayed release (DR/EC) 81 mg PO DAILY multivitamin Tablet 1 tab PO DAILY amlodipine 10 mg tablet 10 mg PO DAILY doxazosin 4 mg tablet 4 mg PO DAILY nitroglycerin 0.4 mg tablet, sublingual 0.4 mg sublingual Q5M PRN (Reason: chest pain) Qty: 30 5RF Rx Instructions: do not exceed 3 doses per episode Combivent Respimat 20-100 mcg/actuation mist 1 puff inhalation QID Qty: 4 11RF Rx Instructions: space evenly during waking hours Print Language: Sinhala
--- NOTE | 2024-04-23 11:34 | ECG_ITS ---
Test Reason : sob Blood Pressure : / mmHG Vent. Rate : 088 BPM Atrial Rate : 088 BPM P-R Int : 164 ms QRS Dur : 090 ms QT Int : 372 ms P-R-T Axes : 083 075 084 degrees QTc Int : 450 ms Normal sinus rhythm Nonspecific ST and T wave abnormality Abnormal ECG When compared with ECG of 25-NOV-2020 10:35, Nonspecific T wave abnormality has replaced inverted T waves in Lateral leads QT has lengthened Referred By: Cira Collier Electronically Signed By:AUDREY ROBLEDO MD
[2024-04-23 12:07] LABS: MANUAL DIFF FLAG NO
[2024-04-23 12:08] LABS: Basophils Percent Auto 0.6 % (0-2); Eosinophils Absolute Auto 0.2 X10*3/uL (0.0-0.4); Eosinophils Percent Auto 2.5 % (0-4); Hematocrit 46.6 % (42.0-52.0); Hemoglobin 16.5 g/dl (14.0-18.0); Imm Gran Abs Auto 0.02 X10*3/uL (0.00-0.03); Imm Gran Pct Auto 0.3 % (0.0-0.4); Lymphocytes Absolute Auto 1.1 X10*3/uL (1.2-4.9); Mean Corpuscular HGB Conc 35.4 g/dl (31.0-36.0); Mean Corpuscular Hemoglobin 31.4 pg (27.0-33.0); Mean Corpuscular Volume 88.8 fL (80.0-98.0); Mean Platelet Volume 9.7 fL (9.4-12.4); Monocytes Absolute Auto 0.6 X10*3/uL (0.1-1.2); Monocytes Percent Auto 7.8 % (2-11); Neutrophils Absolute Auto 5.3 x10*3/uL (2.0-8.3); Neutrophils Percent Auto 73.8 % (45-73); Platelet Count 154 X10*3/uL (160-400); Red Blood Count 5.25 X10*6/uL (4.60-5.80); Red Cell Distribution Width 11.9 % (11.0-16.0); White Blood Count 7.2 X10*3/uL (4.8-10.8)
[2024-04-23] MEDS: methylPREDNISolone Sod Succ 125 MG/2 ML VIAL 60 MG IVPUSH (12:14)
[2024-04-23] MEDS: Albuterol/Iprat 2.5/0.5MG 3 ML AMPUL.NEB INHALE ×2 (12:25→19:36)
[2024-04-23 12:28] LABS: INTERNATIONAL NORM RATIO 1.1 (0.9-1.1); Prothrombin Time 13.6 SEC (11.1-13.3)
[2024-04-23 12:35] LABS: Alanine Aminotransferase 21 U/L (0-40); Albumin Level 4.8 g/dL (3.5-5.0); Alkaline Phosphatase 72 U/L (39-117); Anion Gap 14 (12-20); Aspartate Amino Transferase 24 U/L (5-37); Bilirubin Direct 0.3 mg/dL (0.0-0.5); Bilirubin Total 0.8 mg/dL (0.0-1.0); Blood Urea Nitrogen 18 mg/dL (9-16); Calcium 10.1 mg/dL (8.4-10.2); Carbon Dioxide 29 mmol/L (22-29); Chloride 103 mmol/L (96-108); Creatinine Clr Calc Pharmacy 70.1; Estimated Glomerular Filt Rate > 60; Glucose Random 121 mg/dL (60-115); Potassium 3.9 mmol/L (3.3-5.1); Sodium 142 mmol/L (135-145); Total Protein 7.7 g/dL (6.5-8.0)
[2024-04-23 12:38] LABS: B Type Natriuretic Peptide < 10 pg/mL (<100)
[2024-04-23 12:43] LABS: Troponin-I High Sensitivity 3.1 ng/L (<3.5-35.0)
[2024-04-23 13:05] LABS: Influenza A PCR NEGATIVE (Negative); Influenza B PCR NEGATIVE (Negative); Resp Syncy Virus RNA Qual PCR NEGATIVE (Negative); SARS COV2 PCR INHOUSE NEGATIVE (Negative)
[2024-04-23] MEDS: iohexoL 350 MG/ML 100 ML INFUS..BTL IV (14:18)
[2024-04-23] MEDS: cefTRIAXone sodium 1 GM in 0.9 % Sodium Chloride 50 ML IV (15:41)
--- NOTE | 2024-04-23 16:49 | PM.IMHP ---
History of Present Illness Date of Service: 04/23/24 Chief Complaint: Dyspnea This is a 69-year-old male with pertinent history of CAD status post stents, COPD not on home oxygen, hypertension, hyperlipidemia who presents to the emergency department for evaluation of dyspnea. Patient states his symptoms have been ongoing for the last 2 weeks and have been progressive. He has been having dyspnea which is worse with exertion. Also has associated cough with whitish/yellowish sputum production. Does endorse wheezing. Symptoms not relieved with home inhaler. Patient also uses nebulizer at home. No fever, chills, nausea, vomiting, chest discomfort, palpitations, abdominal pain, changes in urinary or bowel habits. In the emergency department, patient with continued wheezing despite multiple DuoNeb treatments. Review of Systems Constitutional: Constitutional: Reports no additional constitutional complaints Cardiovascular: Cardiovascular: Reports dyspnea on exertion Respiratory: Respiratory: Reports cough, Reports dyspnea on exertion and Reports wheezing Gastrointestinal: Gastrointestinal: Reports no additional gastrointestinal complaints Genitourinary: Genitourinary: Reports no additional male genitourinary complaints Allergic/Immunologic: Allergic/Immunologic: Reports wheezing [facility] Medical History Personal history of nicotine dependence Dyspnea COPD (chronic obstructive pulmonary disease) Essential hypertension Family History Father CVD (cardiovascular disease) Mother Stroke Surgical History History of cardiac catheterization (~06/20/22) History of back surgery Social History Alcohol intake: current Alcohol intake frequency: a few times a week Patient Tobacco Use Status: Former Tobacco user Years Smoked: 33 (onset 14, smoked off/on 52yrs for total 33yrs, 1ppd max, 30pyh) Smoked in Last 30 Days: No Use of substances other than those prescribed or required for medical reasons: No Advance Directives: No Advance Directives Information Provided: Yes Meds Allergies Allergy/AdvReac Type Severity Reaction Status Date / Time nystatin [From Bio-Statin] Allergy Severe liver Verified 04/23/24 11:33 meperidine [From Demerol] Allergy Mild Nausea and Verified 04/23/24 11:33 Vomiting Active Medications: Current Medications Acetaminophen (Acetaminophen 325 Mg Tablet) 650 mg PO Q6H PRN PRN Reason: Pain, Mild (Pain Scale 1-3), fever or headache Albuterol/Ipratropium (Albuterol/Iprat 2.5/0.5mg 3 Ml Ampul.Neb) 3 ml INHALE RQ4H WHILE AWAKE [facility] Albuterol/Ipratropium (Albuterol/Iprat 2.5/0.5mg 3 Ml Ampul.Neb) 3 ml INHALE Q4H PRN PRN Reason: Wheezing Calcium Carbonate (Calcium Carbonate 750 Mg Tab.Chew) 750 mg PO Q4H PRN PRN Reason: Heartburn Enoxaparin Sodium (Enoxaparin Sodium 40 Mg/0.4 Ml Syringe) 40 mg SUBCUT Q24H [facility] Magnesium Hydroxide (Milk Of Magnesia 30 Ml Oral.Susp) 30 ml PO DAILY PRN PRN Reason: Constipation Melatonin (Melatonin 3 Mg Tablet) 6 mg PO BEDTIME PRN PRN Reason: Insomnia Ondansetron HCl (Ondansetron Hcl 4 Mg/2 Ml Vial) 4 mg IVPUSH Q8H PRN PRN Reason: Nausea and Vomiting Prednisone (Prednisone 20 Mg Tablet) 40 mg PO DAILY [facility] Sodium Chloride (0.9 % Sodium Chloride Flush 3 Ml Syringe) 3 ml IVFLUSH QSHIFT [facility] Home Medications ?Medication ?Instructions ?Recorded ?Confirmed ?Last Taken ?Type amlodipine 10 mg tablet 10 mg PO DAILY 01/19/21 08/07/23 Unknown History aspirin 81 mg tablet,delayed 81 mg PO DAILY 01/19/21 08/07/23 Unknown History release (Adult Low Dose Aspirin) multivitamin 1 tab PO DAILY 01/19/21 08/07/23 Unknown History doxazosin 4 mg tablet 4 mg PO DAILY 03/03/22 08/07/23 Unknown History Physical Exam Vital Signs and Narrative: Vital Signs: Last Vital Signs Temp 97.6 F 04/23/24 16:23 Pulse 75 04/23/24 16:23 Resp 14 04/23/24 16:23 BP 123/72 04/23/24 16:23 Pulse Ox 94 04/23/24 16:23 O2 Del Method Room Air 04/23/24 16:23 O2 Flow Rate 93 04/23/24 15:44 BMI result Body Mass Index 22.1 Middle-aged male lying in bed in mild distress Neck supple, no JVD Regular rate and rhythm, S1-S2 heard Bilateral wheezing appreciated Abdomen soft nontender, no guarding, no rigidity Patient is awake, alert and oriented to self, place, time and person ; no focal motor deficit Psych: Normal mood No pedal edema Results Labs 04/23/24 12:01 04/23/24 12:01 Labs: Laboratory Results - last 24 hr 04/23/24 04/23/24 12:01 12:13 MCV 88.8 MCH 31.4 MCHC 35.4 RDW 11.9 Plt Count 154 L D MPV 9.7 Immature Gran % (Auto) 0.3 Neut % (Auto) 73.8 H Lymph % (Auto) 15.0 L [place] % (Auto) 7.8 Eos % (Auto) 2.5 Baso % (Auto) 0.6 Lymph # (Auto) 1.1 L [place] # (Auto) 0.6 Eos # (Auto) 0.2 Baso # (Auto) 0.0 Abs Immat Gran (auto) 0.02 Absolute Neuts (auto) 5.3 Absolute Nucleated RBC 0.000 Nucleated RBC % (auto) 0.0 PT 13.6 H INR 1.1 Anion Gap 14 Estim Creat Clear Calc 70.1 Estimated GFR > 60 Random Glucose 121 H Calcium 10.1 D Magnesium 2.0 Total Bilirubin 0.8 Direct Bilirubin 0.3 AST 24 ALT 21 Alkaline Phosphatase 72 Troponin I High Sens 3.1 B-Natriuretic Peptide < 10 Total Protein 7.7 Albumin 4.8 Influenza Type A (PCR) NEGATIVE Influenza Type B (PCR) NEGATIVE RSV RNA Qual (PCR) NEGATIVE SARS-CoV-2 RNA (RT-PCR) NEGATIVE Imaging Radiologist's Impressions: Impressions Chest X-Ray 04/23/24 11:44 IMPRESSION: 1. Increased density and prominence of the kay, more prominent on the left. 2. Increased left perihilar patchy linear and stranding opacities. Differential considerations include atelectasis, postsurgical change, although an infectious/inflammatory process should also be considered in the appropriate clinical setting. 3. CT scan of the chest could be considered for further evaluation. This study was presented today April 23, 2024 for interpretation. Stat results provided at this time as requested by referring provider. Chest CT 04/23/24 14:22 IMPRESSION: Moderate emphysematous changes. Few pulmonary nodules measuring up to 4 mm stable relative to prior imaging. Aneurysmal dilatation of the ascending thoracic aorta which measures 4.3 x 4.6 cm. Infrarenal abdominal aorta measures 2.8 x 3.1 cm. Recommend follow-up every 3 years. Reference: J Am Cydney Radiol 2013; 10 (10): 789-794. Assessment and Plan (1) COPD exacerbation: Status: Acute Plan This is a 69-year-old male with pertinent history of CAD status post stents, COPD not on home oxygen, hypertension, hyperlipidemia who presents to the emergency department for evaluation of dyspnea. #. Acute exacerbation of COPD: Will admit patient and continue systemic steroids. Scheduled and p.r.nRadha Fish. Initiating azithromycin for pleiotropic effect #. Hypertension: Continue home antihypertensives #. Mixed hyperlipidemia: On statin #. CAD: On dual antiplatelet therapy and statin Med rec pending DVT prophylaxis: Lovenox Full code Quality Stroke Does the patient have a stroke diagnosis?: No VTE Prior VTE?: No VTE Risk Level:: Medical - moderate - high VTE Device Contraindication: Treatment Not Indicated VTE Drug Contraindication: N/A - Med Ordered
--- NOTE | 2024-04-23 16:55 | PHA.MEDREC ---
Addendum entered by Mason Briggs RPh 04/23/24 17:10: med rec reviewed Original Note: Pharmacy Consult ? Medication Reconciliation Pharmacy has completed the medication reconciliation. Spoke to patient to confirm med list.
[2024-04-23] MEDS: Enoxaparin Sodium 40 MG/0.4 ML SYRINGE SUBCUT (17:28)
[2024-04-23] MEDS: Azithromycin 500 MG TABLET PO (17:28)
[2024-04-23] MEDS: Doxazosin Mesylate 2 MG TABLET 4 MG PO (20:01)
[2024-04-23] MEDS: 0.9 % Sodium Chloride Flush 3 ML SYRINGE IVFLUSH (20:02)
[2024-04-24] VITALS (10 sets, daily range): BP systolic 109–138; BP diastolic 62–75; PULSE 63–92; RESP 16–18; TEMP 36.1–36.8; O2SAT 92–96
[2024-04-24 06:25] LABS: MANUAL DIFF FLAG NO
[2024-04-24 06:30] LABS: Basophils Percent Auto 0.1 % (0-2); Hematocrit 42.4 % (42.0-52.0); Hemoglobin 15.6 g/dl (14.0-18.0); Imm Gran Abs Auto 0.04 X10*3/uL (0.00-0.03); Imm Gran Pct Auto 0.5 % (0.0-0.4); Lymphocytes Absolute Auto 1.1 X10*3/uL (1.2-4.9); Lymphocytes Percent Auto 12.5 % (20-40); Mean Corpuscular HGB Conc 36.8 g/dl (31.0-36.0); Mean Corpuscular Hemoglobin 31.7 pg (27.0-33.0); Mean Corpuscular Volume 86.2 fL (80.0-98.0); Mean Platelet Volume 9.9 fL (9.4-12.4); Monocytes Absolute Auto 0.8 X10*3/uL (0.1-1.2); Monocytes Percent Auto 9.7 % (2-11); Neutrophils Absolute Auto 6.5 x10*3/uL (2.0-8.3); Neutrophils Percent Auto 77.2 % (45-73); Platelet Count 150 X10*3/uL (160-400); Red Blood Count 4.92 X10*6/uL (4.60-5.80); Red Cell Distribution Width 11.8 % (11.0-16.0); White Blood Count 8.4 X10*3/uL (4.8-10.8)
[2024-04-24 07:06] LABS: Anion Gap 15 (12-20); Blood Urea Nitrogen 19 mg/dL (9-16); Calcium 9.7 mg/dL (8.4-10.2); Carbon Dioxide 21 mmol/L (22-29); Chloride 107 mmol/L (96-108); Creatinine Clr Calc Pharmacy 72.8; Estimated Glomerular Filt Rate > 60; Glucose Random 201 mg/dL (60-115); Potassium 4.3 mmol/L (3.3-5.1); Sodium 139 mmol/L (135-145)
[2024-04-24] MEDS: Albuterol/Iprat 2.5/0.5MG 3 ML AMPUL.NEB INHALE ×4 (08:06→19:57)
[2024-04-24] MEDS: Multivitamin TABLET 1 TAB PO (08:32)
[2024-04-24] MEDS: Aspirin Enteric Coated 81 MG TABLET.DR PO (08:32)
[2024-04-24] MEDS: Atorvastatin Calcium 80 MG TABLET PO (08:32)
[2024-04-24] MEDS: amLODIPine Besylate 10 MG TABLET PO (08:32)
[2024-04-24] MEDS: Clopidogrel Bisulfate 75 MG TABLET PO (08:32)
[2024-04-24] MEDS: Loratadine 10 MG TABLET PO (08:33)
[2024-04-24] MEDS: predniSONE 20 MG TABLET 40 MG PO (08:33)
[2024-04-24] MEDS: Metoprolol Succinate ER 25 MG TAB.ER.24H PO (08:33)
[2024-04-24] MEDS: 0.9 % Sodium Chloride Flush 3 ML SYRINGE IVFLUSH ×3 (08:35→23:37)
--- NOTE | 2024-04-24 11:04 | MHC.CM.PN ---
FRANCISCA de la garza. Patient lives in an apartment w/ S.O. Reports he is functionally independent. Has a nebulizer. PCP Otto Callaway Says he has an HCP naming his S.O. Jennifer Lentz as HCA. Copy requested. DP: Home self care. Family to transport. CM will continue to follow.
--- NOTE | 2024-04-24 15:41 | P.PNIM_ITS ---
Subjective Subjective Date of Service: 04/24/24 Interval History: copd execerbation Review of Systems sob with minimum excersion sats drop in 88% as per staff with walking Physical Exam 2 Vital Signs: Vital Signs: Last Vital Signs Temp 97.6 F 04/24/24 15:35 Pulse 86 04/24/24 15:35 Resp 18 04/24/24 15:35 BP 121/75 04/24/24 15:35 Pulse Ox 94 04/24/24 15:35 O2 Del Method Room Air 04/24/24 15:35 O2 Flow Rate 93 04/23/24 15:44 BMI result Body Mass Index 22.0 Appearance: Alert.? Oriented X3.? cvs: rrr, [id number] res: clear to auscultation ,no rhonchii or wheezing abd: no rebound or guarding ,nt, bs present. ext pulses present , no cyanosis . neuro: axo3 , nonfocal. Objective Data Active Medications Acetaminophen (Acetaminophen 325 Mg Tablet) 650 mg PO Q6H PRN PRN Reason: Pain, Mild (Pain Scale 1-3), fever or headache Albuterol/Ipratropium (Albuterol/Iprat 2.5/0.5mg 3 Ml Ampul.Neb) 3 ml INHALE RQ4H WHILE AWAKE [facility] Last Admin: 04/24/24 15:09 Dose: 3 ml Documented By: SHINE Albuterol/Ipratropium (Albuterol/Iprat 2.5/0.5mg 3 Ml Ampul.Neb) 3 ml INHALE Q4H PRN PRN Reason: Wheezing Amlodipine Besylate (Amlodipine Besylate 10 Mg Tablet) 10 mg PO DAILY [facility]; Protocol Last Admin: 04/24/24 08:32 Dose: 10 mg Documented By: DERIC Aspirin (Aspirin Enteric Coated 81 Mg Tablet.) 81 mg PO DAILY [facility] Last Admin: 04/24/24 08:32 Dose: 81 mg Documented By: DERIC Atorvastatin Calcium (Atorvastatin Calcium 80 Mg Tablet) 80 mg PO DAILY [facility] Last Admin: 04/24/24 08:32 Dose: 80 mg Documented By: DERIC Azithromycin (Azithromycin 500 Mg Tablet) 500 mg PO Q24H [facility] Last Admin: 04/23/24 17:28 Dose: 500 mg Documented By: JOSE RAMONTOLC Calcium Carbonate (Calcium Carbonate 750 Mg Tab.Chew) 750 mg PO Q4H PRN PRN Reason: Heartburn Clopidogrel Bisulfate (Clopidogrel Bisulfate 75 Mg Tablet) 75 mg PO DAILY [facility] Last Admin: 04/24/24 08:32 Dose: 75 mg Documented By: DERIC Doxazosin Mesylate (Doxazosin Mesylate 2 Mg Tablet) 4 mg PO BEDTIME [facility]; Protocol Last Admin: 04/23/24 20:01 Dose: 4 mg Documented By: ABIGAIL Enoxaparin Sodium (Enoxaparin Sodium 40 Mg/0.4 Ml Syringe) 40 mg SUBCUT Q24H [facility] Last Admin: 04/23/24 17:28 Dose: 40 mg Documented By: DIJALYN Loratadine (Loratadine 10 Mg Tablet) 10 mg PO DAILY [facility] Last Admin: 04/24/24 08:33 Dose: 10 mg Documented By: DERIC Magnesium Hydroxide (Milk Of Magnesia 30 Ml Oral.Susp) 30 ml PO DAILY PRN PRN Reason: Constipation Melatonin (Melatonin 3 Mg Tablet) 6 mg PO BEDTIME PRN PRN Reason: Insomnia Metoprolol Succinate (Metoprolol Succinate Er 25 Mg Tab.Er.24h) 25 mg PO DAILY [facility]; Protocol Last Admin: 04/24/24 08:33 Dose: 25 mg Documented By: DERIC Multivitamins/Vitamin C (Multivitamin Tablet) 1 tab PO DAILY [facility] Last Admin: 04/24/24 08:32 Dose: 1 tab Documented By: DERIC Ondansetron HCl (Ondansetron Hcl 4 Mg/2 Ml Vial) 4 mg IVPUSH Q8H PRN PRN Reason: Nausea and Vomiting Prednisone (Prednisone 20 Mg Tablet) 40 mg PO DAILY [facility] Last Admin: 04/24/24 08:33 Dose: 40 mg Documented By: DERIC Sodium Chloride (0.9 % Sodium Chloride Flush 3 Ml Syringe) 3 ml IVFLUSH QSHIFT [facility] Last Admin: 04/24/24 08:35 Dose: 3 ml Documented By: DERIC Labs 04/24/24 05:45 04/24/24 05:45 Labs: Laboratory Results - last 24 hr 04/24/24 05:45 MCV 86.2 MCH 31.7 MCHC 36.8 H RDW 11.8 Plt Count 150 L MPV 9.9 Immature Gran % (Auto) 0.5 H Neut % (Auto) 77.2 H Lymph % (Auto) 12.5 L [place] % (Auto) 9.7 Eos % (Auto) 0.0 Baso % (Auto) 0.1 Lymph # (Auto) 1.1 L [place] # (Auto) 0.8 Eos # (Auto) 0.0 Baso # (Auto) 0.0 Abs Immat Gran (auto) 0.04 H Absolute Neuts (auto) 6.5 Absolute Nucleated RBC 0.000 Nucleated RBC % (auto) 0.0 Anion Gap 15 Estim Creat Clear Calc 72.8 Estimated GFR > 60 Random Glucose 201 H Calcium 9.7 Assessment and Plan (1) COPD exacerbation: Status: Acute (2) Hypoxia: Status: Acute Plan 69-year-old male with pertinent history of CAD status post stents, COPD not on home oxygen, hypertension, hyperlipidemia who presents to the emergency department for evaluation of dyspnea. Acute hypoxemic respiratory failure sec to acute exacerbation of COPD: symptomatic with minium excersion Will admit patient and continue systemic steroids. Scheduled and p.r.n. DuDavebs. Initiating azithromycin for pleiotropic effect use oxygen titerate to sats 90% Hypertension: Continue home antihypertensives Mixed hyperlipidemia: On statin CAD: On dual antiplatelet therapy and statin DVT prophylaxis: Lovenox Full code ongoing hopitlisation need :Acute hypoxemic respiratory failure sec to acute exacerbation of COPD-needs nebs,steriods ,oxygen if continue to desats, moniter repsiratory status closely Quality Stroke Does the patient have a stroke diagnosis?: No VTE Prior VTE?: No VTE Risk Level:: Medical - moderate - high VTE Device Contraindication: Treatment Not Indicated VTE Drug Contraindication: N/A - Med Ordered
--- NOTE | 2024-04-24 15:51 | PC.NURSE ---
1125- Ambulated with patient in halls with O2 monitoring. Patient started reporting SOB at about 300ft. Per patient, it has been like this for a few weeks . Denies needing to stop at any time during walk to catch his breath. O2 dropped to 88% on RA by end of walk, took few minutes to return to 91%. Dr. Monge made aware, no new orders.
[2024-04-24] MEDS: Azithromycin 500 MG TABLET PO (17:36)
[2024-04-24] MEDS: Enoxaparin Sodium 40 MG/0.4 ML SYRINGE SUBCUT (17:36)
[2024-04-24] MEDS: Doxazosin Mesylate 2 MG TABLET 4 MG PO (19:08)
[2024-04-25 04:00] VITALS: BP 110/75; PULSE 82; RESP 20; TEMP 36.8; O2SAT 94
[2024-04-25 07:52] VITALS: BP 117/79; PULSE 62; RESP 18; TEMP 36.6; O2SAT 93
[2024-04-25 08:19] VITALS: PULSE 68; RESP 18; O2SAT 93
[2024-04-25] MEDS: Albuterol/Iprat 2.5/0.5MG 3 ML AMPUL.NEB INHALE ×2 (08:19→11:29)
[2024-04-25] MEDS: Atorvastatin Calcium 80 MG TABLET PO (08:39)
[2024-04-25] MEDS: Multivitamin TABLET 1 TAB PO (08:40)
[2024-04-25] MEDS: predniSONE 20 MG TABLET 40 MG PO (08:40)
[2024-04-25] MEDS: Loratadine 10 MG TABLET PO (08:40)
[2024-04-25] MEDS: Metoprolol Succinate ER 25 MG TAB.ER.24H PO (08:40)
[2024-04-25] MEDS: Aspirin Enteric Coated 81 MG TABLET.DR PO (08:40)
[2024-04-25] MEDS: Clopidogrel Bisulfate 75 MG TABLET PO (08:40)
[2024-04-25] MEDS: 0.9 % Sodium Chloride Flush 3 ML SYRINGE IVFLUSH (08:41)
[2024-04-25] MEDS: amLODIPine Besylate 10 MG TABLET PO (08:41)
[2024-04-25 09:13] LABS: VBG Base Excess 5.9 mmol/L; VBG HCO3 31 mmol/L (22-26); VBG pCO2 46 mmHg; VBG pH 7.43 (7.32-7.43); VBG pO2 32 mmHg
[2024-04-25 09:15] LABS: Venous Blood Gas Refer to POC result
[2024-04-25 09:20] VITALS: PULSE 103; PULSE 108; PULSE 114; O2SAT 90; O2SAT 92
[2024-04-25] MEDS: Magnesium Sulfate/D5W 1 GM/100 ML PIGGYBACK IV (10:18)
[2024-04-25] MEDS: methylPREDNISolone Sod Succ 40 MG/ML VIAL IVPUSH (10:18)
[2024-04-25 11:29] VITALS: PULSE 72; RESP 16; O2SAT 92
[2024-04-25 11:35] VITALS: BP 102/58; PULSE 74; RESP 18; TEMP 36.8; O2SAT 98
--- NOTE | 2024-04-25 13:45 | MHC.CM.PN ---
Per MD patient medically cleared for dc home self care. Patient's S.O. will provide transport ~3pm. RN aware.
--- NOTE | 2024-04-25 13:49 | P.DS_ITS ---
DS: Providers Provider Date of Service: 04/25/24 Date of admission: 04/23/24 16:47 Date of discharge: 04/25/24 Primary care physician: Otto Callaway MD Attending physician on discharge: Harish Monge Discharging clinician: Harish Monge DS: Diagnosis Discharge Diagnosis (1) COPD exacerbation: Status: Acute (2) Hypoxia: Status: Acute DS: Summary Hospital Course Hospital Course: 69-year-old male with pertinent history of CAD status post stents, COPD not on home oxygen, hypertension, hyperlipidemia who presents to the emergency department for evaluation of dyspnea. Patient states his symptoms have been ongoing for the last 2 weeks and have been progressive. He has been having dyspnea which is worse with exertion. Also has associated cough with whitish/yellowish sputum production. Does endorse wheezing. Symptoms not relieved with home inhaler. Patient also uses nebulizer at home. No fever, chills, nausea, vomiting, chest discomfort, palpitations, abdominal pain, changes in urinary or bowel habits. In the emergency department, patient with continued wheezing despite multiple DuoNeb treatments. Hospital course: Patient was admitted for acute hypoxemic respiratory failure secondary to COPD exacerbation, started on nebs, steroids, antibiotics-seems to be improved significantly. Will be going home with p.o. steroids prednisone 40 mg p.o. daily for 4 days, azithromycin 250 mg p.o. daily for 4 days. Patient's shortness of breath improved significantly, talking in full sentences. Sats fine. Also home oxygen evaluation was done-patient did not qualify for home oxygen. Patient's CT chest(please see imaging section for details) shows emphysema, pulmonary nodules(stable relative to prior imaging), as well as thoracic and Infrarenal abdominal aorta measures 2.8 x 3.1 cm. Patient is to follow-up outpatient with PCP, consider outpatient pulm , cardiology eval for above. Above is discussed with the patient and his daughter at bedside. Time spent 40 min. Time Attestation Total time managing care of this patient today: 40 mintues. Discharge Coordination Time (in mins): 40 min Quality: Safe Use of Opioids Does Pt have an Active Cancer Diagnosis on the Problem List?: No Quality: Stroke Does the patient have a stroke diagnosis?: No Physical Exam Vital Signs: Vital Signs: Last Vital Signs Temp 98.2 F 04/25/24 11:35 Pulse 74 04/25/24 11:35 Resp 18 04/25/24 11:35 BP 102/58 L 04/25/24 11:35 Pulse Ox 98 04/25/24 11:35 O2 Del Method Room Air 04/25/24 11:35 O2 Flow Rate 93 04/23/24 15:44 BMI result Body Mass Index 22.0 Appearance: Alert.? Oriented X3.? cvs: rrr, [id number] . res: air entry fair ,minimun wheezing, no rales abd: no rebound or guarding ,nt, bs present. ext pulses present , no cyanosis . neuro: axo3 , nonfocal. DS: Data Data Completed and Pending Labs on day of discharge: Laboratory Results - last 24 hr 04/25/24 09:05 VBG pH 7.43 VBG pCO2 46 VBG pO2 32 VBG HCO3 31 H VBG O2 Saturation 47.0 VBG Base Excess 5.9 Imaging Chest x-ray: Radiologist's impression: ITS Impressions Chest X-Ray 04/23/24 11:44 IMPRESSION: 1. Increased density and prominence of the kay, more prominent on the left. 2. Increased left perihilar patchy linear and stranding opacities. Differential considerations include atelectasis, postsurgical change, although an infectious/inflammatory process should also be considered in the appropriate clinical setting. 3. CT scan of the chest could be considered for further evaluation. This study was presented today April 23, 2024 for interpretation. Stat results provided at this time as requested by referring provider. Chest CT 04/23/24 14:22 IMPRESSION: Moderate emphysematous changes. Few pulmonary nodules measuring up to 4 mm stable relative to prior imaging. Aneurysmal dilatation of the ascending thoracic aorta which measures 4.3 x 4.6 cm. Infrarenal abdominal aorta measures 2.8 x 3.1 cm. Recommend follow-up every 3 years. Reference: J Am Cydney Radiol 2013; 10 (10): 789-794. Discharge Plan Discharge Anticipated Discharge Date/Time: 04/25/24 13:40 Patient Disposition: Home, Self-Care Discharge Diagnosis: COPD exacerbation Referrals: Otto Callaway MD [Primary Care Provider] - 1 Week Discharge Medications: New prednisone 20 mg tablet 40 mg PO DAILY Qty: 8 0RF azithromycin [Zithromax] 250 mg tablet 250 mg PO DAILY 4 Days Qty: 4 0RF Continued clopidogrel 75 mg tablet 75 mg PO DAILY Qty: 90 2RF Rx Instructions: Take one tab by mouth everyday rosuvastatin 20 mg tablet 20 mg PO DAILY Qty: 90 3RF metoprolol succinate 25 mg tablet extended release 24 hr 25 mg PO DAILY Qty: 90 2RF albuterol sulfate 2.5 mg /3 mL (0.083 %) solution for nebulization 2.5 mg inhalation Q6H PRN (Reason: dyspnea) albuterol sulfate 90 mcg/actuation HFA aerosol inhaler 2 puff INHALATION Q4H PRN (Reason: Shortness Of Breath Or Wheezing) loratadine 10 mg Tablet 10 mg PO DAILY Combivent Respimat 20-100 mcg/actuation mist 1 puff inhalation QID PRN (Reason: Shortness Of Breath Or Wheezing) Rx Instructions: space evenly during waking hours aspirin [Adult Low Dose Aspirin] 81 mg tablet,delayed release (DR/EC) 81 mg PO DAILY multivitamin Tablet 1 tab PO DAILY amlodipine 10 mg tablet 10 mg PO DAILY doxazosin 4 mg tablet 4 mg PO BEDTIME nitroglycerin 0.4 mg tablet, sublingual 0.4 mg sublingual Q5M PRN (Reason: chest pain) Qty: 30 5RF Rx Instructions: do not exceed 3 doses per episode Discharge Orders: Discharge Order (Routine); Ordered 04/25/24 Ordered By: Harish Monge Diet: Advance to usual diet Activity on Discharge: As tolerated Stand Alone Forms: Patient Portal Discharge page Print Language: Upper Sorbian Care Plan Goals: Patient was admitted for acute hypoxemic respiratory failure secondary to COPD exacerbation, started on nebs, steroids, antibiotics-seems to be improved significantly. Will be going home with p.o. steroids prednisone 40 mg p.o. daily for 4 days, azithromycin 250 mg p.o. daily for 4 days. Patient's shortness of breath improved significantly, talking in full sentences. Sats fine. Also home oxygen evaluation was done-patient did not qualify for home oxygen. Patient's CT chest shows emphysema, pulmonary nodules(stable relative to prior imaging), as well as thoracic and Infrarenal abdominal aorta measures 2.8 x 3.1 cm. Patient is to follow-up outpatient with PCP, consider outpatient pulm , cardiology eval for above. Above is discussed with the patient and his daughter at bedside. Time spent 40 min. Health Concerns: As above. Plan of Treatment: As above.. Assessment: As above.
== END 2024-04-25 03:40 | disposition home or self-care (01) ==
LOC: HO.ED 15:54 → HO.EDOVER 17:04 → HO.S3 17:13
PROVIDERS: Physician Assistant; Admitting Provider Student in an Organized Health Care Education/Training Program; Emergency Provider Emergency Medicine; PCP Family Medicine; Visit Provider Internal Medicine
DX: J44.1 Chronic obstructive pulmonary disease with (acute) exacerbation (principal); R09.02 Hypoxemia; R06.02 Shortness of breath; I10 Essential (primary) hypertension; I71.40 Abdominal aortic aneurysm, without rupture, unspecified; I25.10 Atherosclerotic heart disease of native coronary artery without angina pectoris; E78.2 Mixed hyperlipidemia; Z79.899 Other long term (current) drug therapy; Z03.818 Encounter for observation for suspected exposure to other biological agents ruled out
CPT/HCPCS: 0241U; 36415; 71045; 71260; 80048; 80076; 82803; 83735; 83880; 84484; 85025; 85610; 93005; 94640; 96365; 96367; 96372; 96375; 96376; 99221; 99285; J0696; J1650; J2919; J3475; Q9967

== ENCOUNTER → 2024-04-23 11:34 | Outpatient (BNV) | payer MEDICARE, SELFPAY | PROVIDERS: Admitting Provider Student in an Organized Health Care Education/Training Program; Emergency Provider Emergency Medicine; PCP Family Medicine; Visit Provider Internal Medicine Cardiovascular Disease | DX: R06.02 Shortness of breath (principal) | CPT/HCPCS: 93010 ==

== ENCOUNTER → 2024-04-23 12:23 | Outpatient (BNV) | payer MEDICARE, SELFPAY | PROVIDERS: Emergency Provider Emergency Medicine; PCP Family Medicine; Visit Provider Student in an Organized Health Care Education/Training Program | DX: J44.1 Chronic obstructive pulmonary disease with (acute) exacerbation (principal); R09.02 Hypoxemia; I10 Essential (primary) hypertension; E78.5 Hyperlipidemia, unspecified | CPT/HCPCS: 99222; 99231; 99239 ==

== ENCOUNTER 2024-07-01 06:14 | Outpatient (REF) | payer MEDICARE, SELFPAY ==
[2024-07-01 08:02] LABS: Estimated Average Glucose 154 mg/dL; Hemoglobin A1C 212.4366 umol/L; Total Hemoglobin (HGBA1C) 3980.3886 umol/L
[2024-07-01 08:34] LABS: Alanine Aminotransferase 23 U/L (0-40); Aspartate Amino Transferase 23 U/L (5-37); Cholesterol 112 mg/dL (<200); Glucose Fasting 155 mg/dL (60-99); HDL Cholesterol 55 mg/dL (>40); LDL Cholesterol Calculated 46 mg/dL (<100); Triglycerides 58 mg/dL (<150)
[2024-07-01 08:35] LABS: Creatinine Urine 150.91 mg/dL; Microalbum/Creatinine Ratio Ur 9.9 ug/mg cr (<30)
== END 2024-07-01 06:15 | disposition home or self-care (01) ==
LOC: HO.LAB 06:14
PROVIDERS: PCP Family Medicine; Visit Provider Family Medicine
DX: E11.9 Type 2 diabetes mellitus without complications (principal); E78.00 Pure hypercholesterolemia, unspecified; Z79.899 Other long term (current) drug therapy
CPT/HCPCS: 36415; 80061; 82043; 82550; 82570; 82947; 83036; 84450; 84460

== ENCOUNTER 2024-07-31 08:11 | Outpatient (AMB) | payer MEDICARE, SELFPAY ==
[2024-07-31 08:21] VITALS: BP 120/62; PULSE 70; BMI 21.2
--- NOTE | 2024-07-31 08:21 | A.OFFVIS_ITS ---
Vital Signs 07/31/24 08:21 Height 5 ft 9 in Weight 143 lb 11.862 oz BMI 21.2 BP 120/62 Blood Pressure Location Lt brachial Position Sitting Pulse 70 Pulse Source Pulse Oximeter Intake Visit Reasons: 1 yr f/up Allergies nystatin [From Bio-Statin] Allergy (Severe, Verified 04/23/24 11:33) liver meperidine [From Demerol] Allergy (Mild, Verified 04/23/24 11:33) Nausea and Vomiting Medication List - Last Reconciled 07/31/24 by Dav Mukherjee MD albuterol sulfate 2.5 mg inhalation Q6H PRN albuterol sulfate 90 mcg/actuation 2 puffs inhalation Q4H PRN amlodipine 10 mg PO DAILY aspirin (Adult Low Dose Aspirin) 81 mg PO DAILY azithromycin (Zithromax) 250 mg PO DAILY 4 days clopidogrel 75 mg PO DAILY doxazosin 4 mg PO BEDTIME ipratropium-albuterol 20-100 mcg/actuation (Combivent Respimat) 1 puff inhalation QID PRN loratadine 10 mg PO DAILY metoprolol succinate ER 25 mg PO DAILY multivitamin 1 tab PO DAILY nitroglycerin 0.4 mg sublingual Q5M PRN prednisone 40 mg (2 x 20 mg) PO DAILY rosuvastatin 20 mg PO DAILY HPI Comments Details: Moise returns for follow-up regarding coronary disease. He was seen for shortness of breath. Cardiac catheterization with multivessel disease. Initially, LAD was stented. However, he was still symptomatic which led to circumflex stenting. He still has shortness of breath which is most likely from his COPD but he does not have any clear anginal-type complaints. Otherwise, he is just about the same as before. [facility] Medical History Personal history of nicotine dependence Dyspnea COPD (chronic obstructive pulmonary disease) Essential hypertension Surgical History History of cardiac catheterization (~06/20/22) History of back surgery Family History Father CVD (cardiovascular disease) Mother Stroke Social History (Reviewed 07/31/24 @ 08:23 by Brigitte House [facility]) Alcohol intake: current Alcohol intake frequency: a few times a week Patient Tobacco Use Status: Former Tobacco user Tobacco use type: Cigar Years Smoked: 33 (onset 14, smoked off/on 52yrs for total 33yrs, 1ppd max, 30pyh) Second Hand Smoke Exposure: No service: No Review of Systems Const Denies chills, Denies fatigue, Denies fever(s), Denies frequent falls, Denies weakness, Denies weight gain and Denies weight loss ENT Denies dizziness Card Denies chest pain, Denies leg edema, Denies lightheadedness, Denies palpitations, Denies dyspnea and Denies dyspnea on exertion Resp Denies cough, Denies dyspnea and Denies dyspnea on exertion GI Denies hematochezia Musc Denies abnormal gait, Denies muscle weakness, Denies numbness, Denies radiating pain into limb and Denies tingling Neuro Denies abnormal gait, Denies dizziness, Denies frequent falls, Denies numbness, Denies tingling and Denies weakness Endo Denies fatigue and Denies palpitations Physical Exam Vital Signs: Last Vital Signs Pulse 70 07/31/24 08:21 BP 120/62 07/31/24 08:21 BMI result Body Mass Index 21.2 Const General: comfortable and no acute distress Orientation/consciousness: patient oriented x3 HEENT Other: Unremarkable Head: Yes normal to inspection Neck Neck: Yes normal visual inspection Chest Chest palpation & inspection: normal inspection of the chest Resp Auscultation: rhonchi and diminished lung sounds Cardio Palpation: normal PMI Heart sounds: S1 normal heart sound present, S2 normal heart sound present, no gallops, no murmurs and no rubs GI Palpation (GI): Soft to palpation Back/Spine/Pelvis Other: unremarkable Skin General skin exam: no rashes or lesions noted Neuro General: patient oriented x3 Extrem General: Yes normal to inspection Psych Mental Status: mental status grossly normal Assessment & Plan Assessment & Plan (1) Atherosclerotic cardiovascular disease: Code(s): I25.10 - Atherosclerotic heart disease of [place] coronary artery without angina pectoris Category: Medical Plan: Status post LAD as well as circumflex stenting. He also has chronic total occlusion of right coronary artery. Long-term aspirin. We discussed about stopping Plavix but he wants to leave it as it is. If any bleeding issues, then can stop it. (2) Ascending aortic aneurysm: Code(s): I71.2 - Thoracic aortic aneurysm, without rupture Category: Medical Qualifiers: Presence of rupture: without rupture Qualified Code(s): I71.21 - Aneurysm of the ascending aorta, without rupture Plan: In the most recent chest CT scan, ascending aortic size 4.3 x 4.6 cm. We will follow up with an echocardiogram before next appointment. (3) Essential hypertension: Code(s): I10 - Essential (primary) hypertension Category: Medical Plan: Stable. Continue amlodipine. (4) Other and unspecified hyperlipidemia: Code(s): E78.5 - Hyperlipidemia, unspecified Category: Medical Plan: On statins. Was on Zetia, but not in his list. LDL 46 mg/dL. Triglycerides 58 mg/dL. Orders: Orders CA echo transthoracic complete 6 Months I71.21 - Aneurysm of the ascending aorta, without rupture Coding Level of Care Code Est Pt Level 4 (44201) Diagnoses Atherosclerotic cardiovascular disease I25.10 Aneurysm of ascending aorta without rupture I71.21 Presence of rupture: without rupture Essential hypertension I10 Other and unspecified hyperlipidemia E78.5
== END 2024-07-31 08:41 | disposition home or self-care (01) ==
PROVIDERS: PCP Family Medicine; Visit Provider Internal Medicine
DX: I25.10 Atherosclerotic heart disease of native coronary artery without angina pectoris (principal); I71.21 Aneurysm of the ascending aorta, without rupture; I10 Essential (primary) hypertension; E78.5 Hyperlipidemia, unspecified
CPT/HCPCS: 99214

== ENCOUNTER → 2024-07-31 08:11 | Outpatient (BNVA) | payer MEDICARE, SELFPAY | PROVIDERS: PCP Family Medicine; Visit Provider Internal Medicine | DX: I25.10 Atherosclerotic heart disease of native coronary artery without angina pectoris (principal); I71.21 Aneurysm of the ascending aorta, without rupture; I10 Essential (primary) hypertension; E78.5 Hyperlipidemia, unspecified | CPT/HCPCS: 99212 ==

== ENCOUNTER 2024-08-01 12:59 | Outpatient (AMB) | payer MEDICARE, SELFPAY ==
[2024-08-01 13:01] VITALS: BP 94/60; PULSE 80; O2SAT 93; BMI 21.1
--- NOTE | 2024-08-01 13:01 | A.OFFVIS_ITS ---
Vital Signs 08/01/24 13:01 Height 5 ft 9 in Weight 143 lb 2 oz BMI 21.1 BP 94/60 Blood Pressure Location Lt brachial Position Sitting Pulse 80 Pulse Source Pulse Oximeter Pulse Oximetry (%) 93 Oxygen Delivery Method Room Air Intake Visit Reasons: increased shortness of breath/wheeze Allergies nystatin [From Bio-Statin] Allergy (Severe, Verified 08/01/24 13:04) liver meperidine [From Demerol] Allergy (Mild, Verified 08/01/24 13:04) Nausea and Vomiting HPI HPI increased shortness of breath/wheeze : Details: Moise is a pleasant 69 year old male, former smoker, quit 3 years ago with 30+ pyh with underlying COPD and HTN. He is under the care of Dr. Doan and presents today for an acute visit. He has not been seen in a year in pulmonary, during this time he was treated for a COPD exacerbation 04/2024 at [facility] [place]. He denies any other visits to urgent care or ED. He reports over the last few months with worsening respiratory symptoms with increased dyspnea and wheeze. He has been using Duoneb 4-5 times per day with suboptimal effect. He has trialed Trelegy and Breo with minimal improvements. He also notes his insurance has not covered medications well in the past. He also notes chest congestion, difficulty expectorating however when able to expectorate sputum is yellowish brown. He denies fevers, chills or sick contacts. Of note, last chest ct 05/10 revealed stable nodules, will repeat in one year. [facility] Medical History Personal history of nicotine dependence Dyspnea COPD (chronic obstructive pulmonary disease) Essential hypertension Surgical History History of cardiac catheterization (~06/20/22) History of back surgery Family History Father CVD (cardiovascular disease) Mother Stroke Social History Alcohol intake: current Alcohol intake frequency: a few times a week Patient Tobacco Use Status: Former Tobacco user Tobacco use type: Cigar Years Smoked: 33 (onset 14, smoked off/on 52yrs for total 33yrs, 1ppd max, 30pyh) Second Hand Smoke Exposure: No service: No Review of Systems Const Denies chills, Denies excessive sweating, Denies fever(s), Denies headache(s) and Denies night sweats Eyes Denies dry eyes, Denies irritation and Denies itchy eyes ENT Reports Normal hearing present and Denies headache(s) Card Denies chest pain, Denies chest pain at rest, Denies chest pain with activity, Denies claudication, Denies leg edema, Denies orthopnea and Denies paroxysmal nocturnal dyspnea Resp Denies excessive phlegm production, Denies pain on inspiration, Denies pain with cough and Denies stridor Musc Denies myalgias Neuro Reports Normal hearing present and Denies headache(s) Endo Denies excessive sweating Rinku/Lymph Denies lymphadenopathy Aller/Immun Denies itchy eyes and Denies seasonal rhinorrhea Physical Exam Vital Signs: Last Vital Signs Pulse 80 08/01/24 13:01 BP 94/60 08/01/24 13:01 Pulse Ox 93 08/01/24 13:01 Oxygen Delivery Method Room Air 08/01/24 13:01 BMI result Body Mass Index 21.1 Const General: cooperative, no acute distress, well developed and alert Orientation/consciousness: patient oriented x3 Limitations: no limitations HEENT Head: Yes normal to inspection, Yes normocephalic and Yes atraumatic Ears: hearing grossly normal bilaterally and external ears normal Eyes General: appearance normal, both eyes and all related structures Eyelids: Yes eyelids normal Sclerae: sclerae normal EOM: EOMs intact bilaterally Neck Neck: Yes normal visual inspection and Yes no lymphadenopathy Lymphatic: no lymphadenopathy noted Chest Chest palpation & inspection: normal inspection of the chest Resp Other: diminished lung sounds, with improved aeration with duoneb Effort & Inspection: normal respiratory effort, able to speak in complete sentences, no audible wheezes, no cough, no stridor, not tachypneic and no use of accessory muscles Cardio Jugular venous distension: no JVD Rate: regular rate Rhythm: regular rhythm Skin Other: warm, dry General skin exam: no rashes or lesions noted Neuro General: patient oriented x3 Cranial nerves: Yes Normal hearing present Cognition (Neuro): normal cognition Gait exam (Neuro): Normal gait present Extrem General: Yes normal to inspection, Yes capillary refill normal, Yes no clubbing, cyanosis or edema and Yes no pedal edema Psych Appearance: grossly normal and well kempt Speech and movement: Normal speech and movement present and Clear speech present Affect: normal affect Attitude: cooperative Thought process: Normal thought process present Thought content: Normal thought content present Insight: Good insight present (Psych) Judgement: Good judgement present (Psych) Office Procedures Nebulizer Treatment Nebulizer Treatment Details: Lot [id number] Exp 12/15/2025 [id number]/MDI RX initial, or Nebulizer Subsequent Treatment Assessment & Plan Assessment & Plan (1) COPD (chronic obstructive pulmonary disease): Code(s): J44.9 - Chronic obstructive pulmonary disease, unspecified Category: Medical Qualifiers: COPD type: chronic bronchitis Chronic bronchitis type: mixed simple and mucopurulent Qualified Code(s): J41.8 - Mixed simple and mucopurulent chronic bronchitis (2) Dyspnea: Code(s): R06.00 - Dyspnea, unspecified Category: Medical Qualifiers: Dyspnea type: dyspnea on exertion Qualified Code(s): R06.00 - Dyspnea, unspecified (3) Pulmonary nodules: Code(s): R91.8 - Other nonspecific abnormal finding of lung field Category: Medical Plan Will treat bronchitic symptoms with azithromycin and prednisone.Aware to call if symptoms do not improve or seek emergent care if worsens. Will trial symbicort. Discussed importance of good oral hygiene to prevent thrush. He is aware to call if unable to obtain. Patient due for repeat chest CT to monitor pulmonary nodules, order placed. All questions were answered and patient is in agreement of plan. Will follow up with Dr. Doan in 3-4 months or sooner if needed. Orders: Orders CT chest wo IV con 9 Months R91.8 - Other nonspecific abnormal finding of lung field Medications: New prednisone see taper instructions; 40 mg Daily x3 days, 30 mg daily x3 days, 20 mg daily x3 days, 10 mg daily x3 days 10 mg PO DIRECTED 30 tabs 0RF ipratropium-albuterol 0.5 mg-3 mg(2.5 mg base)/3 mL 3 mL inhalation Q6H PRN 180 mL 6RF wheezing budesonide-formoterol 160-4.5 mcg/actuation (Symbicort) 2 puffs inhalation Q12H 10.2 grams 6RF azithromycin For 250 mg dose pack: take 500 mg today (day 1), then 250 mg for 4 days (days 2-5) PO 6 tabs 0RF Discontinued prednisone Discontinued Reason: Patient Completed Course 40 mg (2 x 20 mg) PO DAILY 8 tabs 0RF azithromycin (Zithromax) Discontinued Reason: Patient Completed Course 250 mg PO DAILY 4 days 4 tabs 0RF Coding Level of Care Code Est Pt Level 4 (22230) Complex EM visit Add On G2211 Diagnoses Mixed simple and mucopurulent chronic bronchitis J41.8 COPD type: chronic bronchitis Chronic bronchitis type: mixed simple and mucopurulent Dyspnea on exertion R06.00 Dyspnea type: dyspnea on exertion Pulmonary nodules R91.8 CPT Codes Nebulizer Treatment - Nebulizer Treatment, initial or subsequent: [id number] Nebulizer/MDI RX initial, or Nebulizer Subsequent Treatment ([id number])
== END 2024-08-01 13:40 | disposition home or self-care (01) ==
PROVIDERS: PCP Family Medicine; Visit Provider Nurse Practitioner Family
DX: J44.9 Chronic obstructive pulmonary disease, unspecified (principal); R91.8 Other nonspecific abnormal finding of lung field
CPT/HCPCS: 99214; G2211

== ENCOUNTER → 2024-08-01 12:59 | Outpatient (BNVA) | payer MEDICARE, SELFPAY | PROVIDERS: PCP Family Medicine; Visit Provider Nurse Practitioner Family | DX: J41.8 Mixed simple and mucopurulent chronic bronchitis (principal); R91.8 Other nonspecific abnormal finding of lung field; R06.00 Dyspnea, unspecified | CPT/HCPCS: 94640; 99212 ==

== ENCOUNTER 2024-11-26 10:45 | Outpatient (AMB) | payer MEDICARE, SELFPAY ==
--- NOTE | 2024-11-26 10:52 | MHC.OFFVIS ---
Vital Signs 11/26/24 10:53 Height 5 ft 9 in Weight 153 lb 3.54 oz BMI 22.6 BP 112/68 Blood Pressure Location Rt brachial Position Sitting Pulse 75 Pulse Source Pulse Oximeter Pulse Oximetry (%) 95 Oxygen Delivery Method Room Air Intake Visit Reasons: increased shortness of breath/wheeze Allergies nystatin [From Bio-Statin] Allergy (Severe, Verified 11/26/24 10:56) liver meperidine [From Demerol] Allergy (Mild, Verified 11/26/24 10:56) Nausea and Vomiting HPI Comments Details: The patient is a 69-year-old gentleman former smoker quit 2 years ago was been complaining of worsening dyspnea on exertion. He also had a significant congested cough. He underwent pulmonary function studies few months ago demonstrating a moderate to severe degree of COPD. In addition to that air trapping along with severe diffusion impairment. He was prescribed Breo and was provided samples. When he started the Breo in used it once a day his symptoms improved dramatically. The congestion improved dramatically. He states up to like 90% improvement. Still had a cough is still has some shortness of breath especially going up a flight of stairs. He is concerned because his insurance company does not cover prescriptions in these inhalers a very expensive. The patient had a chest x-ray that I personally reviewed demonstrating hyperinflated lungs. With his smoking history he is a good candidate for the lung cancer screening program. 05/19/2021 the patient is here for pulmonary follow-up visit. He still complaining of significant dyspnea on exertion and congested cough. The Breo was helpful in clearing the phlegm. But, did not improve his respiratory status. He also is without injuring so he does not want to take it. He also tried the nebulized therapy but the did not feel that this helped his respiratory status either. In the meantime he did undergo the lung cancer screening program and found to a nodular density in the upper lobe the greater than cm and also appeared to be in the bronchial lesion. Therefore him doing the PET scan demonstrating no evidence of any FDG activity in the right upper lobe nodule in addition to that appear that he clear the left mainstem bronchus nodular density. Although he may have mucus plugging or an aspiration of foreign body that is moving around his lungs. Patient is reluctant to undergo a repeat CT scan a times soon. Will try to push it out to the spring. He understands PET scan is reassuring but still did nodules subsolid in nature and smoldering malignant process is still in differential. These smoldering processes do not have to be active on PET. In addition to that it appears that his PET scan showed minimal activity around the heart suggesting a possibility of underlying CAD. At this point the patient will be prescribed azithromycin 3 times a week for chronic bronchitis and also tried a low dose of a prednisone taper to see if he improves his respiratory status. Will follow-up in the springtime with repeat CT scan. 03/03/2022 the patient is here for a pulmonary follow-up visit. The patient overall is feeling about the same. He continues to have dyspnea on exertion moderate severity. He does not have significant improvement from the respiratory therapy. Explained to him that is mainly due to the fact that he has significant emphysema and hypoxia. The patient is not interested in oxygen at this time. He may benefit from oxygen in the future. The patient also had a CT scan of the chest in November 2021 which we personally reviewed together. It appears he does numerous pulmonary nodules some that are new. Subcentimeter in size. The right upper lobe density has improved significantly. He has other areas that have slightly worsened as far as the atelectasis. He also has significant emphysema. Based on the fact that the findings have been showing some improvement will follow-up in 1 year to make sure that new pulmonary nodules of not progressed. Will have the patient return in 6 months. If his symptoms are any worse then we can consider repeating the CT scan at an earlier time. 09/27/2022 the patient is here for a pulmonary follow-up visit. Since we last spoke he had additional cardiac testing. He had a cardiac catheterization and had a stent to the LAD and subsequently after that required 2 additional stents 1 to the circumflex. In the meantime he continues to participate in cardiac rehab. He does have shortness of breath. He has a rescue inhaler that he has tried and has not noticed any significant improvement. He has not undergone pulmonary function studies in some time. The patient also has underlying pulmonary nodules. He has last CT scan of the chest was back in November 2021 were demonstrated that some of the nodular densities had improved although he had new pulmonary nodules. He is scheduled to have a repeat CT scan in November of 2022. However, with his ongoing cardiac issues the patient would like to postpone that. Therefore will push it out to 6 months. If however the patient develops any worsening symptoms we can always reconsider. Otherwise will follow-up in [address] scan of the chest. 04/04/2023 the patient is here for a pulmonary follow-up visit. The patient is concerned because his strides in the ER with significant back pain. His breathing is about the same. Still complains of dyspnea on exertion moderate severity. He tried multiple inhalers without any significant improvement. He does uses rescue inhaler as the only 1 that really provide him some relief. The patient is willing to try Combivent. I will send that to the pharmacy to see if this is effective for him. In the meantime we did get a CT scan of the chest to follow up with the new pulmonary nodules that were noted on previous CT scan. It is reassuring that the bigger nodules have subsided. He still has pulmonary nodules and also extensive emphysema. Will go ahead and plan to repeat the CT scan that year's time. Otherwise patient for the Combivent continue with an exercise regimen. 11/26/2024 the patient is here for pulmonary follow-up visit. Continues to complain of shortness of breath dyspnea on exertion chest tightness. He has been using the DuoNeb 3 to 4 times a day. Only get some partial relief for just an hour to an many symptoms reoccur. In addition to that he has had serial CT scans of his underlying pulmonary nodules emphysema. His next CT scan scheduled for the summer. His respiratory exam is limited. Very diminished breath sounds. He does also have a component of chronic bronchitis. He is tends to respond better to the nebulized therapy as he does not respond to the inhalers. Will go ahead and add budesonide to his current regimen and hopefully that will provide him with improvement in his ever capacity. Her does he can always call so we can address any other issues. In the meantime we will follow-up with us sometime in May after his CT scan so we can review that and assess his progress on the addition of the medication. [facility] Medical History Personal history of nicotine dependence Dyspnea COPD (chronic obstructive pulmonary disease) Essential hypertension Surgical History History of cardiac catheterization (~06/20/22) History of back surgery Family History Father CVD (cardiovascular disease) Mother Stroke Social History Alcohol intake: current Alcohol intake frequency: a few times a week Patient Tobacco Use Status: Former Tobacco user Tobacco use type: Cigar Years Smoked: 33 (onset 14, smoked off/on 52yrs for total 33yrs, 1ppd max, 30pyh) Second Hand Smoke Exposure: No service: No Review of Systems Const Denies chills, Denies excessive sweating, Denies fever(s), Denies headache(s) and Denies night sweats Eyes Denies dry eyes, Denies irritation and Denies itchy eyes ENT Reports Normal hearing present and Denies headache(s) Card Denies chest pain, Denies chest pain at rest, Denies chest pain with activity, Denies claudication, Denies leg edema, Denies orthopnea and Denies paroxysmal nocturnal dyspnea Resp Denies excessive phlegm production, Denies pain on inspiration, Denies pain with cough and Denies stridor Musc Denies myalgias Neuro Reports Normal hearing present and Denies headache(s) Endo Denies excessive sweating Rinku/Lymph Denies lymphadenopathy Aller/Immun Denies itchy eyes and Denies seasonal rhinorrhea Physical Exam Vital Signs: Last Vital Signs Pulse 75 11/26/24 10:53 BP 112/68 11/26/24 10:53 Pulse Ox 95 11/26/24 10:53 Oxygen Delivery Method Room Air 11/26/24 10:53 BMI result Body Mass Index 22.6 Const General: alert Neck Neck: Yes normal visual inspection, Yes full ROM and Yes no lymphadenopathy Chest Chest palpation & inspection: normal inspection of the chest Resp Auscultation: diminished lung sounds Cardio Rate: regular rate Rhythm: regular rhythm Heart sounds: S1 normal heart sound present and S2 normal heart sound present GI Palpation (GI): Soft to palpation and nontender Auscultation: normal bowel sounds Skin General skin exam: rashes and/or lesions noted Neuro Cranial nerves: Yes Normal hearing present Assessment & Plan Assessment & Plan (1) COPD (chronic obstructive pulmonary disease): Code(s): J44.9 - Chronic obstructive pulmonary disease, unspecified Category: Medical Qualifiers: COPD type: chronic bronchitis Chronic bronchitis type: mixed simple and mucopurulent Qualified Code(s): J41.8 - Mixed simple and mucopurulent chronic bronchitis (2) Dyspnea: Code(s): R06.00 - Dyspnea, unspecified Category: Medical Qualifiers: Dyspnea type: dyspnea on exertion Qualified Code(s): R06.00 - Dyspnea, unspecified (3) Pulmonary nodules: Code(s): R91.8 - Other nonspecific abnormal finding of lung field Category: Medical Plan Nebulizer therapy Duoneb QID Add Budesonide BID Repeat CT chest 04/2025 continue with rehab F/U 6 months Medications: New budesonide 0.5 mg (2 mL) inhalation BID 120 mL 11RF 30 days J44.9 - Chronic obstructive pulmonary disease, unspecified ipratropium-albuterol 0.5 mg-3 mg(2.5 mg base)/3 mL 3 mL inhalation QID 360 mL 11RF 30 days J44.9 - Chronic obstructive pulmonary disease, unspecified Coding Level of Care Code Est Pt Level 4 (48672) Complex EM visit Add On G2211 Diagnoses Mixed simple and mucopurulent chronic bronchitis J41.8 COPD type: chronic bronchitis Chronic bronchitis type: mixed simple and mucopurulent Dyspnea on exertion R06.00 Dyspnea type: dyspnea on exertion Pulmonary nodules R91.8 Time Spent (min) 17
[2024-11-26 10:53] VITALS: BP 112/68; PULSE 75; O2SAT 95; BMI 22.6
== END 2024-11-26 11:21 | disposition home or self-care (01) ==
LOC: HO.HPS 10:48
PROVIDERS: PCP Family Medicine; Visit Provider Hospitalist
DX: J41.8 Mixed simple and mucopurulent chronic bronchitis (principal); R06.00 Dyspnea, unspecified; R91.8 Other nonspecific abnormal finding of lung field
CPT/HCPCS: 99214; G2211

== ENCOUNTER → 2024-11-26 10:45 | Outpatient (BNVA) | payer MEDICARE, SELFPAY | PROVIDERS: PCP Family Medicine; Visit Provider Hospitalist | DX: J41.8 Mixed simple and mucopurulent chronic bronchitis (principal); R91.8 Other nonspecific abnormal finding of lung field; R06.00 Dyspnea, unspecified | CPT/HCPCS: 99212 ==

== ENCOUNTER → 2025-01-28 08:47 | Outpatient (REF) | payer MEDICARE, SELFPAY ==
--- NOTE | 2025-01-28 08:50 | CA_ITS ---
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 Normal LV ejection fraction 55-60% with grade 1 diastolic dysfunction 2. Calcific aortic valve changes noted as well as mitral annular calcification noted with mild aortic regurgitation 3. Mildly dilated ascending aorta at 4.2 cm 4. No gross pericardial effusion Findings Procedure Information Contrast agent, definity, is being given per protocol without apparent complications. Left Ventricle Normal left ventricular size, thickness, and systolic function. The visually estimated ejection fraction is between 55-60%. Spectral Doppler is indicative of an impaired relaxation filling pattern. E/E prime ratio is <8, consistent with normal filling pressures. Evidence suggests grade I (mild) diastolic dysfunction. Small apical diverticulum noted Right Ventricle Normal right ventricular cavity size and systolic function. Atria The left atrium is normal in size. Interatrial shunt cannot be excluded. The right atrium is normal in size. Aortic Valve The aortic valve was not well visualized. There is mild calcification of the aortic valve. There is no aortic valve stenosis. There is mild aortic valve regurgitation. Mitral Valve There is mild anterior and moderate posterior mitral leaflet thickening. There is moderate mitral annular calcification. There is trace mitral valve regurgitation. There is no mitral valve stenosis. Pulmonic Valve The pulmonic valve was not well visualized. Tricuspid Valve Tricuspid regurgitation envelope is inadequate for calculation of right ventricular systolic pressure. Normal right atrial pressure. Great Vessels The pulmonary artery was not well visualized. There is mild dilatation of the ascending aorta measuring 4.20 cm. Venous The inferior vena cava is normal in size and collapses greater than 50% with inspiration. Pericardium/Pleural There is no evidence of pericardial effusion. Prior Study Comparison No significant change compared to prior study dated: 07/23/2023. Measurements 2D Linear Measurements IVSd: 1.08 0.6-0.9/0.6-1.0 cm LVIDd: 4.17 3.9-5.3/4.2-5.9 cm LVIDd Index: 2.28 2.4-3.2/2.2-3.1 cm/m2 LVIDs: 3.09 2.0-3.6 cm LVPWd: 0.95 0.7-1.1 cm LV Mass: 172.69 67-162/88-224 g LV Mass Index: 94.37 43-95/49-115 g/m2 LVOT Diam: 2.20 3.0+(-)1.3 cm Mitral Valve MV Pk E: 0.60 MV PK A: 0.76 MV Decel Time: 234.00 E/A: 0.80 E'Lateral: 8.38 E'Medial: 5.00 E/E' Med: 12.00 E/E' Lat: 7.20 PHT: 69.00 MVA PHT: 3.19 Decel [place]: 2.56 Aortic Valve AoV Pk Joel: 1.28 AoV Mn Joel: 0.79 AoV VTI: 0.27 AoV Pk Grad: 7.00 Aov Mn Grad: 3.00 HAIM Cont.VTI: 2.90 LVOT LVOT Pk Joel: 0.88 LVOT Mn Joel: 0.60 LVOT VTI: 0.20 LVOT Pk Grad: 3.00 LVOT Mn Grad: 2.00 LVOT Diam: 2.20 LVOT Area: 3.80 Diastolic Function MV Pk E: 0.60 MV Pk A: 0.76 E/A: 0.80 E'Medial: 5.00 E/E' Med: 12.00 E' Laterial: 8.38 E/E' Lat: 7.20 Right Ventricle TAPSE (mm): 20.80 TVS' Joel: 10.40 Tricuspid Valve RA Press: 3.00 Great Vessels Aorta Sinus of Valsalva: 3.93 2.0-3.5 cm Ao Asc: 4.20 2.1-3.4 cm Ao Arch: 3.50 Updated in Other Vendor System with Status of Final Fermín Rodriguez MD electronically signed on 01/29/2025 4:31:08 PM with status of Final
== END ==
LOC: HO.CARD 08:47
PROVIDERS: PCP Family Medicine; Visit Provider Internal Medicine
DX: I71.21 Aneurysm of the ascending aorta, without rupture (principal)
CPT/HCPCS: 93306; Q9957

== ENCOUNTER → 2025-01-28 08:50 | Outpatient (BNV) | payer MEDICARE, SELFPAY | PROVIDERS: PCP Family Medicine; Visit Provider Internal Medicine Cardiovascular Disease | DX: I35.0 Nonrheumatic aortic (valve) stenosis (principal); I34.81 Nonrheumatic mitral (valve) annulus calcification; I34.0 Nonrheumatic mitral (valve) insufficiency | CPT/HCPCS: 93306 ==

== ENCOUNTER 2025-02-11 08:51 | Outpatient (AMB) | payer MEDICARE, SELFPAY ==
[2025-02-11 08:53] VITALS: BP 110/70; PULSE 70; O2SAT 97; BMI 21.8
--- NOTE | 2025-02-11 08:53 | MHC.OFFVIS ---
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 Allergies nystatin [From Bio-Statin] Allergy (Severe, Verified 11/26/24 10:56) liver meperidine [From Demerol] Allergy (Mild, Verified 11/26/24 10:56) Nausea and Vomiting Medication List - Last Reconciled 02/11/25 by Dav Mukherjee MD albuterol sulfate 2.5 mg inhalation Q6H PRN albuterol sulfate 90 mcg/actuation 2 puffs inhalation Q4H PRN amlodipine 10 mg PO DAILY aspirin (Adult Low Dose Aspirin) 81 mg PO DAILY budesonide 0.5 mg (2 mL) inhalation BID 30 days clopidogrel 75 mg PO DAILY doxazosin 4 mg PO BEDTIME ipratropium-albuterol 0.5 mg-3 mg(2.5 mg base)/3 mL 3 mL inhalation QID 30 days loratadine 10 mg PO DAILY metoprolol succinate ER 25 mg PO DAILY multivitamin 1 tab PO DAILY nitroglycerin 0.4 mg sublingual Q5M PRN rosuvastatin 20 mg PO DAILY HPI Comments Details: Moise returns for follow-up regarding coronary disease. He was initially seen for shortness of breath. Cardiac catheterization with multivessel disease. Initially, LAD was stented. However, he was still symptomatic which led to circumflex stenting. He feels just about the same as before. Shortness of breath is unchanged, suspected to be from COPD. He does not have any clear-cut exertional angina. [facility] Medical History Personal history of nicotine dependence Dyspnea COPD (chronic obstructive pulmonary disease) Essential hypertension Surgical History History of cardiac catheterization (~06/20/22) History of back surgery Family History Father CVD (cardiovascular disease) Mother Stroke Social History Alcohol intake: current Alcohol intake frequency: a few times a week Patient Tobacco Use Status: Former Tobacco user Tobacco use type: Cigar Years Smoked: 31 (onset 14, smoked off/on 52yrs for total 33yrs, 1ppd max, 30pyh) Second Hand Smoke Exposure: No service: No Review of Systems Const Denies chills, Denies fatigue, Denies fever(s), Denies frequent falls, Denies weakness, Denies weight gain and Denies weight loss ENT Denies dizziness Card Denies chest pain, Denies leg edema, Denies lightheadedness, Denies palpitations, Denies dyspnea, Denies dyspnea on exertion, Denies orthopnea and Denies other (loss of consciousness) Resp Denies cough, Denies dyspnea and Denies dyspnea on exertion GI Denies hematochezia and Denies change in stool character Musc Denies abnormal gait, Denies muscle weakness, Denies numbness, Denies radiating pain into limb and Denies tingling Neuro Denies abnormal gait, Denies dizziness, Denies frequent falls, Denies numbness, Denies tingling and Denies weakness Endo Denies fatigue and Denies palpitations Physical Exam Vital Signs: Last Vital Signs Pulse 70 02/11/25 08:53 BP 110/70 02/11/25 08:53 Pulse Ox 97 02/11/25 08:53 BMI result Body Mass Index 21.8 Const General: comfortable and no acute distress Orientation/consciousness: patient oriented x3 HEENT Other: Unremarkable Head: Yes normal to inspection Neck Neck: Yes normal visual inspection Chest Chest palpation & inspection: normal inspection of the chest Resp Auscultation: clear to auscultation bilaterally Cardio Palpation: normal PMI Heart sounds: S1 normal heart sound present, S2 normal heart sound present, no gallops, no murmurs and no rubs GI Palpation (GI): Soft to palpation Back/Spine/Pelvis Other: unremarkable Skin General skin exam: no rashes or lesions noted Neuro General: patient oriented x3 Extrem General: Yes normal to inspection Psych Mental Status: mental status grossly normal Assessment & Plan Assessment & Plan (1) Atherosclerotic cardiovascular disease: Code(s): I25.10 - Atherosclerotic heart disease of [place] coronary artery without angina pectoris Category: Medical Plan: Status post LAD as well as circumflex stenting. He also has chronic total occlusion of right coronary artery. Long-term aspirin. We discussed about stopping Plavix but he wants to leave it as it is. If any bleeding issues, then can stop it. (2) Ascending aortic aneurysm: Code(s): I71.2 - Thoracic aortic aneurysm, without rupture Category: Medical Qualifiers: Presence of rupture: without rupture Qualified Code(s): I71.21 - Aneurysm of the ascending aorta, without rupture Plan: In the chest CT scan, ascending aortic size 4.3 x 4.6 cm. In the echocardiogram, ascending aortic size 4.2 cm. We can monitor this periodically. (3) Essential hypertension: Code(s): I10 - Essential (primary) hypertension Category: Medical Plan: Stable. Continue amlodipine. (4) Other and unspecified hyperlipidemia: Code(s): E78.5 - Hyperlipidemia, unspecified Category: Medical Plan: On statins. Was on Zetia, but not in his list. LDL 46 mg/dL. Triglycerides 58 mg/dL. Plan Discussion Notes I discussed with the patient the stability of his coronary artery disease and the effectiveness of his current medication regimen. The patient was advised to maintain regular follow-ups for ongoing cardiovascular monitoring and stability. Patient was informed and verbally consented to the use of an ambient scribe for clinic note documentation during this visit. Patient Instructions: - Continue taking Metoprolol as prescribed. - Attend regular follow-up appointments to monitor your heart health. - Stay up-to-date with vaccinations. - Report any new symptoms such as chest pain or breathing difficulties immediately. - Maintain medication adherence to prevent further heart issues. Coding Level of Care Code Est Pt Level 4 (39290) Complex EM visit Add On G2211 Diagnoses Atherosclerotic cardiovascular disease I25.10 Aneurysm of ascending aorta without rupture I71.21 Presence of rupture: without rupture Essential hypertension I10 Other and unspecified hyperlipidemia E78.5
== END 2025-02-11 09:10 | disposition home or self-care (01) ==
LOC: HO.HCS 08:52
PROVIDERS: PCP Family Medicine; Visit Provider Internal Medicine
DX: I25.10 Atherosclerotic heart disease of native coronary artery without angina pectoris (principal); I71.21 Aneurysm of the ascending aorta, without rupture; I10 Essential (primary) hypertension; E78.5 Hyperlipidemia, unspecified
CPT/HCPCS: 99214; G2211

== ENCOUNTER → 2025-02-11 08:51 | Outpatient (BNVA) | payer MEDICARE, SELFPAY | PROVIDERS: PCP Family Medicine; Visit Provider Internal Medicine | DX: I25.10 Atherosclerotic heart disease of native coronary artery without angina pectoris (principal); I71.21 Aneurysm of the ascending aorta, without rupture; I10 Essential (primary) hypertension; E78.5 Hyperlipidemia, unspecified | CPT/HCPCS: 99212 ==

== ENCOUNTER 2025-03-10 12:33 | Outpatient (REF) | payer MEDICARE, SELFPAY ==
[2025-03-10 13:41] LABS: Alanine Aminotransferase 38 U/L (0-40); Anion Gap 17 (12-20); Aspartate Amino Transferase 31 U/L (5-37); Blood Urea Nitrogen 14 mg/dL (9-16); Carbon Dioxide 24 mmol/L (22-29); Chloride 106 mmol/L (96-108); Estimated Glomerular Filt Rate > 60; Magnesium 2.1 mg/dL (1.6-2.6); Potassium 4.1 mmol/L (3.3-5.1); Sodium 143 mmol/L (135-145)
== END 2025-03-10 12:34 | disposition home or self-care (01) ==
LOC: HO.10HDL 12:33
PROVIDERS: Visit Provider Family Medicine
DX: I10 Essential (primary) hypertension (principal); E78.00 Pure hypercholesterolemia, unspecified; Z79.899 Other long term (current) drug therapy
CPT/HCPCS: 36415; 80051; 82550; 82565; 83735; 84450; 84460; 84520

== ENCOUNTER 2025-06-02 09:56 | Outpatient (REF) | payer MEDICARE, SELFPAY ==
--- NOTE | ~2025-06-02 | XR_ITS ---
EXAMINATION: XR CHEST CLINICAL INFORMATION: R06.00 - Dyspnea, unspecified COMPARISON: 04/23/2024. 11/25/2020. TECHNIQUE: 2 views of the chest were obtained. FINDINGS: The cardiac, hilar, and mediastinal contours are normal. Lungs are diffusely hyperaerated. Flattened hemidiaphragms. There is lobar consolidation in the right upper lobe anterolaterally. Patchy opacities in the lateral right base. There is linear scarring in the left upper lobe. There is no pneumothorax or pleural effusion. There is no focal osseous or soft tissue abnormality. There are degenerative spinal changes. XR/XR chest 2V IMPRESSION: 1. Right upper lobe lobar pneumonia. Patchy opacities in the lateral right base as well. Recommend radiographic follow-up after treatment to ensure resolution. 2. COPD. Electronically signed by: Kush Lorenzo MD 06/02/2025 11:10 AM EDT
[2025-06-02 10:48] LABS: MANUAL DIFF FLAG NO
[2025-06-02 10:51] LABS: Venous Blood Gas Refer to POC result
[2025-06-02 10:53] LABS: Hematocrit 44.8 % (42.0-52.0); Hemoglobin 16.3 g/dl (14.0-18.0); Imm Gran Abs Auto 0.03 X10*3/uL (0.00-0.03); Imm Gran Pct Auto 0.4 % (0.0-0.4); Lymphocytes Absolute Auto 0.8 X10*3/uL (1.2-4.9); Mean Corpuscular HGB Conc 36.4 g/dl (31.0-36.0); Mean Corpuscular Hemoglobin 32.0 pg (27.0-33.0); Mean Corpuscular Volume 88.0 fL (80.0-98.0); NRBC Abs Auto 0.000 X10*3/uL (0.0-0.012); NRBC Pct Auto 0.0 /100WBC (0.0-0.2); Platelet Count 143 X10*3/uL (160-400); Red Blood Count 5.09 X10*6/uL (4.60-5.80); White Blood Count 7.4 X10*3/uL (4.8-10.8)
[2025-06-02 10:55] LABS: VBG HCO3 26 mmol/L (22-26); VBG O2 % Saturation 33.0 %
[2025-06-02 11:04] LABS: Anion Gap 15 (12-20); Blood Urea Nitrogen 18 mg/dL (9-16); Calcium 9.8 mg/dL (8.4-10.2); Carbon Dioxide 26 mmol/L (22-29); Chloride 103 mmol/L (96-108); Estimated Glomerular Filt Rate > 60; Potassium 4.0 mmol/L (3.3-5.1); Sodium 140 mmol/L (135-145)
[2025-06-02 11:11] LABS: B Type Natriuretic Peptide 26 pg/mL (<100)
[2025-06-02 11:12] LABS: Troponin-I High Sensitivity 9.0 ng/L (<3.5-35.0)
--- NOTE | 2025-06-02 11:12 | ECG_ITS ---
Test Reason : COPD Blood Pressure : */* mmHG Vent. Rate : 89 BPM Atrial Rate : 89 BPM P-R Int : 162 ms QRS Dur : 92 ms QT Int : 326 ms P-R-T Axes : 76 71 73 degrees QTcB Int : 396 ms Sinus rhythm with Premature supraventricular complexes Incomplete right bundle branch block Nonspecific T wave abnormality Abnormal ECG When compared with ECG of 23-Apr-2024 12:15, Premature supraventricular complexes are now Present Nonspecific T wave abnormality, worse in Inferior leads QT has shortened Referred By: Rey Doan Electronically Signed By: JOSE SUTHERLAND
[2025-06-02 11:30] LABS: D Dimer High Sensitivity 783 NG/ML
== END 2025-06-02 09:57 | disposition home or self-care (01) ==
LOC: HO.XRAY 09:56
PROVIDERS: Visit Provider Hospitalist
DX: J44.9 Chronic obstructive pulmonary disease, unspecified (principal); J18.9 Pneumonia, unspecified organism; R91.8 Other nonspecific abnormal finding of lung field; R78.89 Finding of other specified substances, not normally found in blood; R06.00 Dyspnea, unspecified; I95.9 Hypotension, unspecified; R07.89 Other chest pain
CPT/HCPCS: 36415; 71046; 80048; 82803; 83880; 84484; 85025; 85379; 85652; 93005; 94618; 99212

== ENCOUNTER 2025-06-02 09:56 | Outpatient (AMB) | payer MEDICARE, SELFPAY ==
[2025-06-02 09:59] VITALS: BP 90/40; PULSE 106; O2SAT 93; BMI 20.8
--- NOTE | 2025-06-02 09:59 | A.OFFVIS_ITS ---
Vital Signs 06/02/25 09:59 Height 5 ft 9 in Weight 141 lb 1.533 oz BMI 20.8 BP 90/40 L Blood Pressure Location Lt brachial Position Sitting Pulse 106 H Pulse Source Pulse Oximeter Pulse Oximetry (%) 93 Oxygen Delivery Method Room Air Intake Visit Reasons: COPD Backpackers Manager Required: No Accompanied by: Spouse Allergies nystatin (From Bio-Statin) Allergy (Severe, Verified 06/02/25 10:02) liver meperidine (From Demerol) Allergy (Mild, Verified 06/02/25 10:02) Nausea and Vomiting HPI Comments Details: The patient is a 70-year-old gentleman former smoker quit 2 years ago was been complaining of worsening dyspnea on exertion. He also had a significant congested cough. He underwent pulmonary function studies few months ago demonstrating a moderate to severe degree of COPD. In addition to that air trapping along with severe diffusion impairment. He was prescribed Breo and was provided samples. When he started the Breo in used it once a day his symptoms improved dramatically. The congestion improved dramatically. He states up to like 90% improvement. Still had a cough is still has some shortness of breath especially going up a flight of stairs. He is concerned because his insurance company does not cover prescriptions in these inhalers a very expensive. The patient had a chest x-ray that I personally reviewed demonstrating hyperinflated lungs. With his smoking history he is a good candidate for the lung cancer screening program. 05/19/2021 the patient is here for pulmonary follow-up visit. He still complaining of significant dyspnea on exertion and congested cough. The Breo was helpful in clearing the phlegm. But, did not improve his respiratory status. He also is without injuring so he does not want to take it. He also tried the nebulized therapy but the did not feel that this helped his respiratory status either. In the meantime he did undergo the lung cancer screening program and found to a nodular density in the upper lobe the greater than cm and also appeared to be in the bronchial lesion. Therefore him doing the PET scan demonstrating no evidence of any FDG activity in the right upper lobe nodule in addition to that appear that he clear the left mainstem bronchus nodular density. Although he may have mucus plugging or an aspiration of foreign body that is moving around his lungs. Patient is reluctant to undergo a repeat CT scan a times soon. Will try to push it out to the spring. He understands PET scan is reassuring but still did nodules subsolid in nature and smoldering malignant process is still in differential. These smoldering processes do not have to be active on PET. In addition to that it appears that his PET scan showed minimal activity around the heart suggesting a possibility of underlying CAD. At this point the patient will be prescribed azithromycin 3 times a week for chronic bronchitis and also tried a low dose of a prednisone taper to see if he improves his respiratory status. Will follow-up in the springtime with repeat CT scan. 03/03/2022 the patient is here for a pulmonary follow-up visit. The patient overall is feeling about the same. He continues to have dyspnea on exertion moderate severity. He does not have significant improvement from the respiratory therapy. Explained to him that is mainly due to the fact that he has significant emphysema and hypoxia. The patient is not interested in oxygen at this time. He may benefit from oxygen in the future. The patient also had a CT scan of the chest in November 2021 which we personally reviewed together. It appears he does numerous pulmonary nodules some that are new. Subcentimeter in size. The right upper lobe density has improved significantly. He has other areas that have slightly worsened as far as the atelectasis. He also has significant emphysema. Based on the fact that the findings have been showing some improvement will follow-up in 1 year to make sure that new pulmonary nodules of not progressed. Will have the patient return in 6 months. If his symptoms are any worse then we can consider repeating the CT scan at an earlier time. 09/27/2022 the patient is here for a pulmonary follow-up visit. Since we last spoke he had additional cardiac testing. He had a cardiac catheterization and had a stent to the LAD and subsequently after that required 2 additional stents 1 to the circumflex. In the meantime he continues to participate in cardiac rehab. He does have shortness of breath. He has a rescue inhaler that he has tried and has not noticed any significant improvement. He has not undergone pulmonary function studies in some time. The patient also has underlying pulmonary nodules. He has last CT scan of the chest was back in November 2021 were demonstrated that some of the nodular densities had improved although he had new pulmonary nodules. He is scheduled to have a repeat CT scan in November of 2022. However, with his ongoing cardiac issues the patient would like to postpone that. Therefore will push it out to 6 months. If however the patient develops any worsening symptoms we can always reconsider. Otherwise will follow-up in [address] scan of the chest. 04/04/2023 the patient is here for a pulmonary follow-up visit. The patient is concerned because his strides in the ER with significant back pain. His breathing is about the same. Still complains of dyspnea on exertion moderate severity. He tried multiple inhalers without any significant improvement. He does uses rescue inhaler as the only 1 that really provide him some relief. The patient is willing to try Combivent. I will send that to the pharmacy to see if this is effective for him. In the meantime we did get a CT scan of the chest to follow up with the new pulmonary nodules that were noted on previous CT scan. It is reassuring that the bigger nodules have subsided. He still has pulmonary nodules and also extensive emphysema. Will go ahead and plan to repeat the CT scan that year's time. Otherwise patient for the Combivent continue with an exercise regimen. 11/26/2024 the patient is here for pulmonary follow-up visit. Continues to complain of shortness of breath dyspnea on exertion chest tightness. He has been using the DuoNeb 3 to 4 times a day. Only get some partial relief for just an hour to an many symptoms reoccur. In addition to that he has had serial CT scans of his underlying pulmonary nodules emphysema. His next CT scan scheduled for the summer. His respiratory exam is limited. Very diminished breath sounds. He does also have a component of chronic bronchitis. He is tends to respond better to the nebulized therapy as he does not respond to the inhalers. Will go ahead and add budesonide to his current regimen and hopefully that will provide him with improvement in his ever capacity. Her does he can always call so we can address any other issues. In the meantime we will follow- up with us sometime in May after his CT scan so we can review that and assess his progress on the addition of the medication. 06/02/2025 the patient is here for sick visit. He has been sick now for about 4 weeks where he has had worsening shortness of breath with minimal activity also has had no appetite weight loss dizziness chest discomfort. He is with a significant other who recommended he go to the ER but he has been reluctant to go. He has been having some shortness of breath. Denies any cough denies any fevers. During the visit we did go for brief walking oximetry the patient did desaturate down to 80%. I did place him on 2 L pulse but he does not breathe through his nose only to his mouth so therefore we had to stay with the gas tanks with oxygen 2 L to maintain a pulse ox of 94% with activity. The patient did well with the oxygen. In the meantime he also underwent a chest x-ray demonstrating a right-sided airspace disease consistent with pneumonia or could be also be an infarct. I personally reviewed the images. Indeed his white count is normal. The patient did have an elevated D-dimer and therefore Devi's hump needs to be considered. I did call the patient to encourage him to go to the ER to get a CTA but the patient is reluctant to do so. I will order 1 to try to do it as urgent as possible but he knows that if he worsens that he needs to go to the ER. He also understands he is taking a risk by not going to the OR in the 1st place. As this could be life her . The patient ultimately will be started on Vantin azithromycin to treat him for pneumonia. He is also going to start a course of steroids to see if this provides some relief as well. Will set him up with oxygen at home. He can use it with activity. In the meantime the patient had an EKG that was abnormal but his cardiac enzymes were okay. The patient is very sick. He will come back in a couple weeks or he will go to the ER if he worsens. If he does have a positive blood clot then he will definitely to go to the ER for further evaluation and treatment. Malignancy he also is on the differential specially with smoking history and also based on the fact that he is losing weight. [facility] Medical History (Updated 06/02/25 @ 13:13 by Rey Doan MD) Pneumonia Chest pain Hypotension Personal history of nicotine dependence Dyspnea COPD (chronic obstructive pulmonary disease) Essential hypertension Surgical History History of cardiac catheterization (~06/20/22) History of back surgery Family History Father CVD (cardiovascular disease) Mother Stroke Social History Alcohol intake: current Alcohol intake frequency: a few times a week Patient Tobacco Use Status: Former Tobacco user Tobacco use type: Cigar Years Smoked: 31 (onset 14, smoked off/on 52yrs for total 33yrs, 1ppd max, 30pyh) Second Hand Smoke Exposure: No service: No Review of Systems Const Denies chills, Denies excessive sweating, Denies fever(s), Denies headache(s), Reports lethargy, Denies night sweats, Reports poor appetite and Reports weight loss Eyes Denies dry eyes, Denies irritation and Denies itchy eyes ENT Reports Normal hearing present, Reports dizziness and Denies headache(s) Card Reports chest pain, Denies chest pain at rest, Denies chest pain with activity, Denies claudication, Denies leg edema, Reports dyspnea, Reports dyspnea on exertion, Denies orthopnea and Denies paroxysmal nocturnal dyspnea Resp Denies excessive phlegm production, Denies pain on inspiration, Denies pain with cough, Reports dyspnea, Reports dyspnea on exertion and Denies stridor GI Reports no additional complaints Musc Denies myalgias Neuro Reports Normal hearing present, Reports dizziness and Denies headache(s) Endo Denies excessive sweating Rinku/Lymph Denies lymphadenopathy Aller/Immun Denies itchy eyes and Denies seasonal rhinorrhea Physical Exam Vital Signs: Last Vital Signs Pulse 106 H 06/02/25 09:59 BP 90/40 L 06/02/25 09:59 Pulse Ox 93 06/02/25 09:59 Oxygen Delivery Method Room Air 06/02/25 09:59 BMI result Body Mass Index 20.8 Const General: alert Neck Neck: Yes normal visual inspection, Yes full ROM and Yes no lymphadenopathy Chest Chest palpation & inspection: normal inspection of the chest Resp Effort & Inspection: tachypneic Auscultation: diminished lung sounds Cardio Rate: tachycardic Rhythm: regular rhythm Heart sounds: S1 normal heart sound present and S2 normal heart sound present GI Palpation (GI): Soft to palpation and nontender Auscultation: normal bowel sounds Skin General skin exam: rashes and/or lesions noted Neuro Cranial nerves: Yes Normal hearing present Office Procedures 6 Minute Walk Time:: 13:15 SPO2 % at rest: 94 Pulse at rest: 89 SPO2 % during excercise: 88 Pulse during excercise: 120 Distance in yards walked: 100 Cassi Score: 8 Supplemental Oxygen: The patient was visibly dyspneic. He did desaturate with activity 80% room air place him on 2 L pulse but the patient could not breathe through his nose. Place him on 2 L continues improving his pulse ox 94% with ac tivity start oxygen supplementation with activity with gas tanks. [id number] - 6 Minute Walk Results Reviewed Results Reviewed: Personally reviewed the chest x-ray demonstrating right-sided airspace disease. Also reviewed the blood work demonstrating a positive D-dimer Assessment & Plan Assessment & Plan (1) Dyspnea: Code(s): R06.00 - Dyspnea, unspecified Category: Medical Qualifiers: Dyspnea type: dyspnea on exertion Qualified Code(s): R06.00 - Dyspnea, unspecified (2) Hypotension: Code(s): I95.9 - Hypotension, unspecified Category: Medical Qualifiers: Hypotension type: unspecified hypotension type Qualified Code(s): I95.9 - Hypotension, unspecified (3) Chest pain: Code(s): R07.9 - Chest pain, unspecified Category: Medical Qualifiers: Chest pain type: other chest pain Qualified Code(s): R07.89 - Other chest pain (4) Blood D-dimer assay positive: Code(s): R78.89 - Finding of other specified substances, not normally found in blood Category: Medical (5) Pneumonia: Code(s): J18.9 - Pneumonia, unspecified organism Category: Medical Qualifiers: Pneumonia type: due to unspecified organism Laterality: right Lung location: unspecified part of lung Qualified Code(s): J18.9 - Pneumonia, unspecified organism (6) COPD (chronic obstructive pulmonary disease): Code(s): J44.9 - Chronic obstructive pulmonary disease, unspecified Category: Medical Qualifiers: COPD type: chronic bronchitis Chronic bronchitis type: mixed simple and mucopurulent Qualified Code(s): J41.8 - Mixed simple and mucopurulent chronic bronchitis (7) Pulmonary nodules: Code(s): R91.8 - Other nonspecific abnormal finding of lung field Category: Medical Plan Nebulizer therapy Duoneb QID Budesonide BID Repeat CT chest 04/2025 continue with rehab Start prednisone taper Start azithromycin and Vantin to treat him for pneumonia The patient needs to go to the ER. He is reluctant at this time I will order a urgent CTA to rule out PE as soon as possible The patient needs to start oxygen 2 L with activity F/U 2 weeks or needs to go to the ER if worsens as he is very frail Orders: Orders Venous Blood Gas Today I95.9 - Hypotension, unspecified, R06.00 - Dyspnea, unspecified, R07.9 - Chest pain, unspecified Troponin-I High Sensitivity Today I95.9 - Hypotension, unspecified, R06.00 - Dyspnea, unspecified, R07.9 - Chest pain, unspecified Basic Metabolic Panel Today I95.9 - Hypotension, unspecified, R06.00 - Dyspnea, unspecified, R07.9 - Chest pain, unspecified B Type Natriuretic Peptide Today I95.9 - Hypotension, unspecified, R06.00 - Dyspnea, unspecified, R07.9 - Chest pain, unspecified XR chest 2V Today I95.9 - Hypotension, unspecified, R06.00 - Dyspnea, unspecified, R07.9 - Chest pain, unspecified ECG 12 lead EKG Today I95.9 - Hypotension, unspecified, J44.9 - Chronic obstructive pulmonary disease, unspecified, R06.00 - Dyspnea, unspecified, R07.9 - Chest pain, unspecified Complete Blood Count Auto Diff Today I95.9 - Hypotension, unspecified, R06.00 - Dyspnea, unspecified, R07.9 - Chest pain, unspecified Erythrocyte Sedimentation Rate Today I95.9 - Hypotension, unspecified, R06.00 - Dyspnea, unspecified, R07.9 - Chest pain, unspecified D Dimer High Sensitivity Today I95.9 - Hypotension, unspecified, R06.00 - Dyspnea, unspecified, R07.9 - Chest pain, unspecified CT angio chest PE protocol Today R07.9 - Chest pain, unspecified, R78.89 - Finding of other specified substances, not normally found in blood Medications: New prednisone PO daily; Take 6 tabs daily x 3 days, then 5 tabs x 3 days, then 4 tabs x 3 days, then 3 tabs x 3 days, then 2 tabs daily x 3 days, then 1 tab x 3 days to complete. 63 tabs 0RF 18 days azithromycin 500 mg PO DAILY 5 days 5 tabs 0RF cefpodoxime must administer with a meal/food 200 mg PO BID 20 tabs 0RF azithromycin 500 mg PO DAILY 5 tabs 0RF 5 days Coding Level of Care Code Est Pt Level 5 (54801) Complex EM visit Add On G2211 Diagnoses Dyspnea on exertion R06.00 Dyspnea type: dyspnea on exertion Hypotension, unspecified hypotension type I95.9 Hypotension type: unspecified hypotension type Other chest pain R07.89 Chest pain type: other chest pain Blood D-dimer assay positive R78.89 Pneumonia of right lung due to infectious organism, unspecified part of lung J18.9 Pneumonia type: due to unspecified organism Laterality: right Lung location: unspecified part of lung Mixed simple and mucopurulent chronic bronchitis J41.8 COPD type: chronic bronchitis Chronic bronchitis type: mixed simple and mucopurulent Pulmonary nodules R91.8 CPT Codes Coding ([id number]) Time Spent (min) 60
[2025-06-02 13:15] VITALS: PULSE 89; O2SAT 94
== END 2025-06-02 10:25 | disposition home or self-care (01) ==
LOC: HO.HPS 09:56
PROVIDERS: PCP Family Medicine; Visit Provider Hospitalist
DX: R06.00 Dyspnea, unspecified (principal); I95.9 Hypotension, unspecified; R07.89 Other chest pain; R78.89 Finding of other specified substances, not normally found in blood; J18.9 Pneumonia, unspecified organism; J41.8 Mixed simple and mucopurulent chronic bronchitis; R91.8 Other nonspecific abnormal finding of lung field
CPT/HCPCS: 94618; 99215; G2211

== ENCOUNTER → 2025-06-02 10:46 | Outpatient (BNV) | payer MEDICARE, SELFPAY | PROVIDERS: Visit Provider Radiology Diagnostic Radiology | DX: J18.9 Pneumonia, unspecified organism (principal) | CPT/HCPCS: 71046 ==

== ENCOUNTER → 2025-06-02 11:12 | Outpatient (BNV) | payer MEDICARE, SELFPAY | PROVIDERS: Visit Provider Internal Medicine | DX: I49.1 Atrial premature depolarization (principal); I45.10 Unspecified right bundle-branch block | CPT/HCPCS: 93010 ==

== ENCOUNTER 2025-06-08 14:55 | Outpatient (REF) | payer MEDICARE, SELFPAY ==
[2025-06-08] MEDS: iohexoL 350 MG/ML 100 ML INFUS..BTL 65 ML IV (16:00)
== END 2025-06-08 14:56 | disposition home or self-care (01) ==
LOC: HO.CT 14:55
PROVIDERS: PCP Student in an Organized Health Care Education/Training Program; Visit Provider Hospitalist
DX: R07.9 Chest pain, unspecified (principal); R78.89 Finding of other specified substances, not normally found in blood
CPT/HCPCS: 71275; Q9967

== ENCOUNTER → 2025-06-08 14:58 | Outpatient (BNV) | payer MEDICARE, SELFPAY | PROVIDERS: PCP Student in an Organized Health Care Education/Training Program; Visit Provider Radiology Diagnostic Radiology | DX: I26.93 Single subsegmental thrombotic pulmonary embolism without acute cor pulmonale (principal); J43.2 Centrilobular emphysema | CPT/HCPCS: 71275 ==

== ENCOUNTER 2025-06-16 09:19 | Outpatient (AMB) | payer MEDICARE, SELFPAY ==
--- NOTE | 2025-06-16 09:20 | MHC.PC.OV ---
Vital Signs 06/16/25 09:29 Height 5 ft 9 in Weight 136 lb BMI 20.1 BP 100/58 L Blood Pressure Location Rt brachial Position Sitting Respiration 20 Pulse 74 Pulse Source Pulse Oximeter Temp 97.6 F Temp Source Temporal Artery Scan Pulse Oximetry (%) 95 Oxygen Delivery Method Room Air Intake Visit Reasons: 3 MO F/UP - BAKARI PT - MARYS DR LISA [employer] Sales Associate Required: No Accompanied by: Self / Same As Patient Allergies nystatin (From Bio-Statin) Allergy (Severe, Verified 06/16/25 09:21) liver meperidine (From Demerol) Allergy (Mild, Verified 06/16/25 09:21) Nausea and Vomiting Tobacco use date assessed: 06/16/25 Fall risk assessment: No Falls in past year Last assessed Fall Risk: 06/16/25 Dental Screening Dental Screen Date: 06/16/25 Did you have a dental visit in the last 12 months?: Yes Did you have a dental problem in the last 6 months where you did not have access to dental care?: No Was dental information given to patient?: Patient has dentist HPI HPI Comments History of Present Illness Details The patient is a 70-year-old male presenting with multiple chronic conditions including pulmonary embolism, coronary artery disease, chronic obstructive pulmonary disease (COPD), and related pulmonary and cardiovascular issues. He has a history of coronary artery disease with three stents placed, indicating advanced ischemic heart condition. The patient reports severe difficulty in breathing, aggravated by exertion. He was previously advised to use supplemental oxygen at home, but reported poor results with the nasal prongs leading to discomfort. Despite attempts at using oxygen tanks and a concentrator at home, he found them cumbersome to manage due to weight and noise, reducing his compliance. 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 He has been off tobacco products for over 30 years. Additionally, the patient suffers from allergic rhinitis that worsens seasonally. He reports recently being diagnosed with a pulmonary embolism and pneumonia, confirmed by a CT scan, for which he has started treatment with prednisone and azithromycin. However, he expresses concerns over the prohibitive cost of the prescribed anticoagulant, apixaban, which he is unable to afford. His hypertension and hyperlipidemia have been managed with amlodipine, metoprolol succinate, and rosuvastatin, respectively. Despite taking statins, he reports experiencing muscle cramps, and he mitigates these by taking magnesium supplements. His blood glucose management has not been optimal, leading to a recent HbA1c result indicating poorly controlled diabetes at a level of 7.0%. Additional complaints include weight loss and muscle weakness. He expresses concerns over dietary deficiencies due to his diabetic condition and financial constraints. Despite previous dietary modifications and attempts to manage cholesterol with fish oils, he acknowledges challenges in maintaining his comprehensive health repertoire. Medical History: - Coronary Artery Disease with stent placement - Chronic Obstructive Pulmonary Disease (COPD) - Emphysema - Hypertension - Hyperlipidemia - Diabetes Mellitus - Pulmonary Embolism - Pneumonia - Allergic Rhinitis Surgical History: - Back surgery for herniated discs (unspecified date) Medications: - Amlodipine 10 mg daily for hypertension - Metoprolol succinate 25 mg daily for hypertension - Rosuvastatin 20 mg daily for hyperlipidemia - Magnesium supplements for statin-induced muscle cramps Family History: - Mother had skin cancer - Mother had diabetes in the last year of life Diagnostic Results: - CT scan showing pulmonary embolism and pneumonia - HbA1c of 7.0% (June 2024) - Previous CT scans confirming emphysema diagnosis Social History: - Previously employed in a [employer] setting known for secondhand smoke exposure - Lives alone, occasionally with family visiting - No current tobacco or alcohol use, historically smoked cigars - Financial constraints affecting medication adherence and diet quality [facility] Medical History (Updated 06/16/25 @ 10:04 by Ye Lisa MD) Diabetes Diastolic CHF BPH (benign prostatic hyperplasia) Pulmonary embolism CAD (coronary artery disease) Pneumonia Chest pain Hypotension Personal history of nicotine dependence Dyspnea COPD (chronic obstructive pulmonary disease) Essential hypertension Surgical History History of cardiac catheterization (~06/20/22) History of back surgery Family History Father CVD (cardiovascular disease) Mother Stroke Social History Housing: House Alcohol intake: current Alcohol intake frequency: a few times a week Patient Tobacco Use Status: Former Tobacco user Tobacco use type: Cigar Years Smoked: 31 (onset 14, smoked off/on 52yrs for total 33yrs, 1ppd max, 30pyh) e-Cigarette/Vaping Use: Former Use Second Hand Smoke Exposure: No service: No Current occupational status: retired Questionnaire PHQ-9 Over the last 2 weeks, how often have you been bothered by any of the following problems? 1. Little interest or pleasure in doing things: not at all 2. Feeling down, depressed, or hopeless: not at all 3. Trouble falling or staying asleep, or sleeping too much: not at all 4. Feeling tired or having little energy: not at all 5. Poor appetite or overeating: not at all 6. Feeling bad about yourself - or that you are a failure or have let yourself or your family down: not at all 7. Trouble concentrating on things, such as reading the newspaper or watching television: not at all 8. Moving or speaking so slowly that other people could have noticed. Or the opposite - being so fidgety or restless that you have been moving around a lot more than usual: not at all 9. Thoughts that you would be better off or of hurting yourself in some way: not at all Total score: 0 Depression Screening Interpretation: Negative Depression Screening Done: Yes 47737 - PHQ-9 Billing: Yes Source: Developed by Drs. Alessio Farmer, Patti Sun, Danny Gorman and colleagues, with an educational ander from [employer]. Thrive Questionnaire Date Thrive assessed: 04/24/24 I am a: Patient What is your living situation today?: I have a steady place to live Within the past 12 months, did the food you bought not last and you didn't have the money to get more?: Never true Within the past 12 months, did you worry whether your food would run out before you got money to buy more?: Never true Do you have trouble paying for medicines?: No Do you have trouble getting transportation to medical appointments?: No Do you have trouble paying your heating and electricity bill?: No Do you have trouble taking care of your child, family member or friend?: No Do you have trouble with day-to-day activities such as bathing, preparing meals, shopping, managing finances, etc.?: No Are you currently unemployed and looking for a job?: No Are you interested in more education?: No THRIVE Score: 0 AUDIT C Alcohol Use Questionnaire (AUDIT-C) 1. How often do you have a drink containing alcohol?: Never 3. How often do you have six or more drinks on one occasion?: Never Total Score: 0 Score Reviewed/Action Taken: Yes LAKESHA-7 AMB Questionnaire LAKESHA-7 Date LAKESHA - 7 assessed: 06/16/25 Feeling nervous, anxious, or on edge: 0 = Not at all Not being able to stop or control worryin = Not at all Worrying too much about different things: 0 = Not at all Trouble relaxin = Not at all Being so restless that it is hard to sit still: 0 = Not at all Becoming easily annoyed or irritable: 0 = Not at all Feeling afraid as if something awful might happen: 0 = Not at all Total LAKESHA-7 score (0-4 normal; 5-9 mild; 10-14 moderate; 15-21 severe): 0 Source: Developed by Drs. Alessio Farmer, Patti Sun, Danny Gorman and colleagues, with an educational ander from [employer]. LAKESHA-7 Assessment Billing LAKESHA-7 Assessment Tool: LAKESHA-7 Assessment 04378 Review of Systems Const Details: - Cardiovascular: Reports history of coronary artery disease - Respiratory: Reports difficulty breathing, COPD, emphysema, and use of supplemental oxygen - Musculoskeletal: Reports muscle cramps associated with statin use - Endocrine: Reports diabetes mellitus management challenges - General: Reports weight loss and muscle weakness - Allergies: Reports allergies to seasonal changes - Hematologic: Reports history of pulmonary embolism - Infectious Diseases: Reports recent pneumonia All systems reviewed & are unremarkable except as reviewed in HPI and above Physical exam (Primary Care) Vital Signs: Last Vital Signs Temp 97.6 F 06/16/25 09:29 Pulse 74 06/16/25 09:29 Resp 20 06/16/25 09:29 BP 100/58 L 06/16/25 09:29 Pulse Ox 95 06/16/25 09:29 Oxygen Delivery Method Room Air 06/16/25 09:29 BMI result Body Mass Index 20.1 Tobacco/Smoking Status: Tobacco use Status Tobacco use date assessed 06/16/25 06/16/25 09:23 Patient Tobacco Use Status Former Tobacco user 06/16/25 09:23 Tobacco use type Cigar 06/16/25 09:23 e-Cigarette/Vaping Use Former Use 06/16/25 09:33 Depression Screening Interpretation: Negative Thrive Assessment: Date of Thrive Assessment Date Thrive assessed 04/24/24 06/16/25 09:23 Const Other: General: Alert and oriented, Well nourished, No acute distress. Eye: Pupils are equal, round and reactive to light, Intact accommodation, Extraocular movements are intact, Normal conjunctiva, Vision unchanged. HENT: Normocephalic, Atraumatic, Tympanic membranes are clear, Normal hearing, Oral mucosa is moist, No pharyngeal erythema, Ear canals patent. Respiratory: Lungs CTA bilaterally, No wheeze, Respirations are non-labored. Cardiovascular: Regular rate, Regular rhythm, S1 auscultated, S2 auscultated, No murmur, Good pulses equal in all extremities, Normal peripheral perfusion, No edema. Gastrointestinal: Soft, Non-tender, Non-distended, Normal bowel sounds, No organomegaly. Musculoskeletal: Normal range of motion, Normal strength, No tenderness, No swelling, No deformity, Normal gait. Integumentary: Warm, Dry, [place], Intact. Neurologic: Alert, Oriented, Normal sensory, Normal motor function, No focal defects, Cranial Nerves II-XII are grossly intact, Normal deep tendon reflexes. Psychiatric: Cooperative, Appropriate mood & affect, Normal judgment. Coding Level of Care Code New Pt Level 5 (17379) Complex EM visit Add On G2211 Diagnoses Single subsegmental pulmonary embolism without acute cor pulmonale I26.93 Pulmonary embolism type: single subsegmental (without acute cor pulmonale) Mixed simple and mucopurulent chronic bronchitis J41.8 COPD type: chronic bronchitis Chronic bronchitis type: mixed simple and mucopurulent Essential hypertension I10 Aneurysm of ascending aorta without rupture I71.21 Presence of rupture: without rupture Type 2 diabetes mellitus without complication, without long-term current use of insulin E11.9 Diabetes mellitus complication status: without complication Diabetes mellitus [facility] insulin use: without ruby engineer use Diabetes mellitus type: type 2 Chronic diastolic congestive heart failure I50.32 Heart failure chronicity: chronic Coronary artery disease involving [place] coronary artery of [place] heart without angina pectoris I25.10 Associated angina: without angina Coronary Disease-Associated Artery/Lesion type: [place] artery [place] vs. transplanted heart: [place] heart Other and unspecified hyperlipidemia E78.5 Benign prostatic hyperplasia without lower urinary tract symptoms N40.0 Lower urinary tract symptom presence: symptoms absent Pulmonary nodules R91.8 Additional Codes PHQ-9 - 91490 - PHQ-9 Billing: Yes ([id number]) LAKESHA-7 Assessment Billing - LAKESHA-7 Assessment Tool: LAKESHA-7 Assessment 33305 ([id number]) Time Spent (min) 60 Assessment & Plan Assessment & Plan (1) Pulmonary embolism: Comment: Recently diagnosed on CT imaging with a subsegmental PE. Was prescribed Eliquis however denied by pharmacy. Script sent again with diagnosis code and if patient gets reject will attempt prior Auth Code(s): I26.99 - Other pulmonary embolism without acute cor pulmonale Category: Medical Qualifiers: Pulmonary embolism type: single subsegmental (without acute cor pulmonale) Qualified Code(s): I26.93 - Single subsegmental thrombotic pulmonary embolism without acute cor pulmonale (2) COPD (chronic obstructive pulmonary disease): Comment: Underlying emphysema secondary to work exposure. Was recently seen in clinic where he was found to be short of breath and hypoxic on activity. He was advised to use 2 L of oxygen which was delivered the patient however patient reports he was not given a facemask and does not want to use nasal prongs for oxygen therapy without effacement as. Tried to explain to patient that oxygen therapy during provided through nasal prongs but he reports nasal passages blocked and he can use him therefore he returned to the oxygen. He was also treated for a pneumonia and a tapering dose of prednisone which he continues today. Advised continuation of his albuterol, ipratropium and close follow up with Pulmonary doctors Code(s): J44.9 - Chronic obstructive pulmonary disease, unspecified Category: Medical Qualifiers: COPD type: chronic bronchitis Chronic bronchitis type: mixed simple and mucopurulent Qualified Code(s): J41.8 - Mixed simple and mucopurulent chronic bronchitis (3) Essential hypertension: Comment: Pressures well-controlled on amlodipine 10 and metoprolol succinate and occasionally causing hypotension. Given his likely weight loss secondary to his underlying emphysema we will decrease amlodipine to 5 mg daily Code(s): I10 - Essential (primary) hypertension Category: Medical (4) Ascending aortic aneurysm: Comment: CT imaging reviewed and recent echo both demonstrating in diameter 4.2 cm stable Code(s): I71.2 - Thoracic aortic aneurysm, without rupture Category: Medical Qualifiers: Presence of rupture: without rupture Qualified Code(s): I71.21 - Aneurysm of the ascending aorta, without rupture (5) Diabetes: Comment: Recent A1c from June of 2024 demonstrated an A1c of 7 and increased from few months prior from 6.7. We will repeat A1c and if greater than 7.5 we will consider initiation with metformin 500 mg daily Code(s): E11.9 - Type 2 diabetes mellitus without complications Category: Medical Qualifiers: Diabetes mellitus complication status: without complication Diabetes mellitus ruby engineer insulin use: without [facility] use Diabetes mellitus type: type 2 Qualified Code(s): E11.9 - Type 2 diabetes mellitus without complications (6) Diastolic CHF: Comment: Stable with no signs of fluid overload. Echo reviewed from earlier this year with an EF of 60-65% with grade 1 diastolic dysfunction. Encouraged continued follow up with Cardiology Code(s): I50.30 - Unspecified diastolic (congestive) heart failure Category: Medical Qualifiers: Heart failure chronicity: chronic Qualified Code(s): I50.32 - Chronic diastolic (congestive) heart failure (7) CAD (coronary artery disease): Comment: Status post stenting times 3. Currently on dual antiplatelet therapy with Plavix and aspirin. Advised to continue the medications Code(s): I25.10 - Atherosclerotic heart disease of [place] coronary artery without angina pectoris Category: Medical Qualifiers: Associated angina: without angina Coronary Disease-Associated Artery/Lesion type: [place] artery [place] vs. transplanted heart: [place] heart Qualified Code(s): I25.10 - Atherosclerotic heart disease of [place] coronary artery without angina pectoris (8) Other and unspecified hyperlipidemia: Comment: Previously on Zetia and currently on rosuvastatin 20 mg with good control of LDL. Most recent lipid panel demonstrated an LDL of 47 Code(s): E78.5 - Hyperlipidemia, unspecified Category: Medical (9) BPH (benign prostatic hyperplasia): Comment: Continue doxazosin Code(s): N40.0 - Benign prostatic hyperplasia without lower urinary tract symptoms Category: Medical Qualifiers: Lower urinary tract symptom presence: symptoms absent Qualified Code(s): N40.0 - Benign prostatic hyperplasia without lower urinary tract symptoms (10) Pulmonary nodules: Comment: Imaging from 2023 reviewed demonstrated a pulmonary nodule 3 mm in the right upper lobe and 4 mm in left lower lobe which is stable on repeat imaging in 2024. Patient to continue yearly screening and continue follow up with Pulmonary. Code(s): R91.8 - Other nonspecific abnormal finding of lung field Category: Medical Plan: Health maintenance: - Discuss updated pneumonia vaccine compliance (administered as per patient history). - Suggest potential lifestyle modifications to aid glycemic control. - Address seasonal allergy management with appropriate antihistamines. Patient was informed and verbally consented to the use of an ambient scribe for clinic note documentation during this visit. Plan I discussed with the patient the complexity and need for stringent management of his chronic and acute medical conditions including COPD, coronary artery disease, and diabetes mellitus. We reviewed the cost-prohibitive issue related to apixaban and attempted to seek a viable alternative for anticoagulation. I addressed the renal convenience of adjusting rosuvastatin intake to ensure improved adherence and less muscle pain. Counseling was provided on the essentiality of regular blood glucose monitoring and balancing dietary concerns. He was informed about the reduction in amlodipine dosage due to low blood pressure concerns. In conclusion, patient education focused on medication adherence and the importance of follow-up evaluations within a structured timeframe. Orders: Orders Hemoglobin A1c Today E11.9 - Type 2 diabetes mellitus without complications Referrals Cologuard Test Z12.11 - Encounter for screening for malignant neoplasm of colon Medications: New apixaban PO PER PKG DIR 74 ea 0RF I26.93 - Single subsegmental thrombotic pulmonary embolism without acute cor pulmonale amlodipine 5 mg PO DAILY 90 tabs 0RF 90 days Patient Instructions: - Continue with current medications as prescribed. - Take rosuvastatin at night to reduce muscle cramps. - Reduce amlodipine to 5 mg daily. - Try to monitor blood glucose levels regularly. - Maintain diet within budgetary limits, focusing on low carbohydrate content. - Use Loratadine for allergy management. - Seek medical help instantly if encountering worsening breathing difficulties or chest pain. - Schedule a follow-up appointment within three months.
[2025-06-16 09:29] VITALS: BP 100/58; PULSE 74; RESP 20; TEMP 36.4; O2SAT 95; BMI 20.1
== END 2025-06-16 10:04 | disposition home or self-care (01) ==
LOC: HO.HMCHD 09:19
PROVIDERS: PCP Student in an Organized Health Care Education/Training Program; Visit Provider Student in an Organized Health Care Education/Training Program
DX: I26.93 Single subsegmental thrombotic pulmonary embolism without acute cor pulmonale (principal); J41.8 Mixed simple and mucopurulent chronic bronchitis; I10 Essential (primary) hypertension; I71.21 Aneurysm of the ascending aorta, without rupture; E11.9 Type 2 diabetes mellitus without complications; I50.32 Chronic diastolic (congestive) heart failure; I25.10 Atherosclerotic heart disease of native coronary artery without angina pectoris; E78.5 Hyperlipidemia, unspecified; N40.0 Benign prostatic hyperplasia without lower urinary tract symptoms; R91.8 Other nonspecific abnormal finding of lung field

== ENCOUNTER → 2025-06-16 09:19 | Outpatient (BNVA) | payer MEDICARE, SELFPAY | PROVIDERS: PCP Student in an Organized Health Care Education/Training Program; Visit Provider Student in an Organized Health Care Education/Training Program | DX: I26.93 Single subsegmental thrombotic pulmonary embolism without acute cor pulmonale (principal); J41.8 Mixed simple and mucopurulent chronic bronchitis; I71.21 Aneurysm of the ascending aorta, without rupture; E11.9 Type 2 diabetes mellitus without complications; I11.0 Hypertensive heart disease with heart failure; I50.32 Chronic diastolic (congestive) heart failure; I25.10 Atherosclerotic heart disease of native coronary artery without angina pectoris; E78.5 Hyperlipidemia, unspecified; N40.0 Benign prostatic hyperplasia without lower urinary tract symptoms; R91.8 Other nonspecific abnormal finding of lung field; Z79.02 Long term (current) use of antithrombotics/antiplatelets; Z79.82 Long term (current) use of aspirin; Z79.899 Other long term (current) drug therapy; Z13.31 Encounter for screening for depression; Z13.39 Encounter for screening examination for other mental health and behavioral disorders | CPT/HCPCS: 96127; 99202 ==

== ENCOUNTER 2025-06-25 14:19 | Outpatient (AMB) | payer MEDICARE, SELFPAY ==
[2025-06-25 14:26] VITALS: BP 118/74; PULSE 83; O2SAT 95
--- NOTE | 2025-06-25 14:26 | A.OFFVIS_ITS ---
Vital Signs 06/25/25 14:26 Height 5 ft 9 in Weight 135 lb 9.349 oz BMI 20.0 BP 118/74 Blood Pressure Location Lt brachial Position Sitting Pulse 83 Pulse Source Pulse Oximeter Pulse Oximetry (%) 95 Oxygen Delivery Method Room Air Intake Visit Reasons: copd Industrial Order Clerk Required: No Accompanied by: Self / Same As Patient Allergies nystatin (From Bio-Statin) Allergy (Severe, Verified 06/25/25 14:29) liver meperidine (From Demerol) Allergy (Mild, Verified 06/25/25 14:29) Nausea and Vomiting HPI Comments Details: The patient is a 70-year-old gentleman former smoker quit 2 years ago was been complaining of worsening dyspnea on exertion. He also had a significant bhavani ested cough. He underwent pulmonary function studies few months ago demonstrating a moderate to severe degree of COPD. In addition to that air trapping along with severe diffusion impairment. He was prescribed Breo and was provided samples. When he started the Breo in used it once a day his symptoms improved dramatically. The congestion improved dramatically. He states up to like 90% improvement. Still had a cough is still has some shortness of breath especially going up a flight of stairs. He is concerned because his insurance company does not cover prescriptions in these inhalers a very expensive. The patient had a chest x-ray that I personally reviewed demonstrating hyperinflated lungs. With his smoking history he is a good candidate for the lung cancer screening program. 05/19/2021 the patient is here for pulmonary follow-up visit. He still complaining of significant dyspnea on exertion and congested cough. The Breo was helpful in clearing the phlegm. But, did not improve his respiratory status. He also is without injuring so he does not want to take it. He also tried the nebulized therapy but the did not feel that this helped his respiratory status either. In the meantime he did undergo the lung cancer screening program and found to a nodular density in the upper lobe the greater than cm and also appeared to be in the bronchial lesion. Therefore him doing the PET scan demonstrating no evidence of any FDG activity in the right upper lobe nodule in addition to that appear that he clear the left mainstem bronchus nodular density. Although he may have mucus plugging or an aspiration of foreign body that is moving around his lungs. Patient is reluctant to undergo a repeat CT scan a times soon. Will try to push it out to the spring. He understands PET scan is reassuring but still did nodules subsolid in nature and smoldering malignant process is still in differential. These smoldering processes do not have to be active on PET. In addition to that it appears that his PET scan showed minimal activity around the heart suggesting a possibility of underlying CAD. At this point the patient will be prescribed azithromycin 3 times a week for chronic bronchitis and also tried a low dose of a prednisone taper to see if he improves his respiratory status. Will follow-up in the springtime with repeat CT scan. 03/03/2022 the patient is here for a pulmonary follow-up visit. The patient overall is feeling about the same. He continues to have dyspnea on exertion moderate severity. He does not have significant improvement from the respiratory therapy. Explained to him that is mainly due to the fact that he has significant emphysema and hypoxia. The patient is not interested in oxygen at this time. He may benefit from oxygen in the future. The patient also had a CT scan of the chest in November 2021 which we personally reviewed together. It appears he does numerous pulmonary nodules some that are new. Subcentimeter in size. The right upper lobe density has improved significantly. He has other areas that have slightly worsened as far as the atelectasis. He also has significant emphysema. Based on the fact that the findings have been showing some improvement will follow-up in 1 year to make sure that new pulmonary nodules of not progressed. Will have the patient return in 6 months. If his symptoms are any worse then we can consider repeating the CT scan at an earlier time. 09/27/2022 the patient is here for a pulmonary follow-up visit. Since we last spoke he had additional cardiac testing. He had a cardiac catheterization and had a stent to the LAD and subsequently after that required 2 additional stents 1 to the circumflex. In the meantime he continues to participate in cardiac rehab. He does have shortness of breath. He has a rescue inhaler that he has tried and has not noticed any significant improvement. He has not undergone pulmonary function studies in some time. The patient also has underlying pul monary nodules. He has last CT scan of the chest was back in November 2021 were demonstrated that some of the nodular densities had improved although he had new pulmonary nodules. He is scheduled to have a repeat CT scan in November of 2022. However, with his ongoing cardiac issues the patient would like to postpone that. Therefore will push it out to 6 months. If however the patient develops any worsening symptoms we can always reconsider. Otherwise will follow-up in [address] scan of the chest. 04/04/2023 the patient is here for a pulmonary follow-up visit. The patient is concerned because his strides in the ER with significant back pain. His breathing is about the same. Still complains of dyspnea on exertion moderate severity. He tried multiple inhalers without any significant improvement. He does uses rescue inhaler as the only 1 that really provide him some relief. The patient is willing to try Combivent. I will send that to the pharmacy to see if this is effective for him. In the meantime we did get a CT scan of the chest to follow up with the new pulmonary nodules that were noted on previous CT scan. It is reassuring that the bigger nodules have subsided. He still has pulmonary nodules and also extensive emphysema. Will go ahead and plan to repeat the CT scan that year's time. Otherwise patient for the Combivent continue with an exercise regimen. 11/26/2024 the patient is here for pulmonary follow-up visit. Continues to complain of shortness of breath dyspnea on exertion chest tightness. He has been using the DuoNeb 3 to 4 times a day. Only get some partial relief for just an hour to an many symptoms reoccur. In addition to that he has had serial CT scans of his underlying pulmonary nodules emphysema. His next CT scan scheduled for the summer. His respiratory exam is limited. Very diminished breath sounds. He does also have a component of chronic bronchitis. He is tends to respond better to the nebulized therapy as he does not respond to the inhalers. Will go ahead and add budesonide to his current regimen and hopefully that will provide him with improvement in his ever capacity. Her does he can always call so we can address any other issues. In the meantime we will follow- up with us sometime in May after his CT scan so we can review that and assess his progress on the addition of the medication. 06/02/2025 the patient is here for sick visit. He has been sick now for about 4 weeks where he has had worsening shortness of breath with minimal activity also has had no appetite weight loss dizziness chest discomfort. He is with a significant other who recommended he go to the ER but he has been reluctant to go. He has been having some shortness of breath. Denies any cough denies any fevers. During the visit we did go for brief walking oximetry the patient did desaturate down to 80%. I did place him on 2 L pulse but he does not breathe through his nose only to his mouth so therefore we had to stay with the gas tanks with oxygen 2 L to maintain a pulse ox of 94% with activity. The patient did well with the oxygen. In the meantime he also underwent a chest x-ray demonstrating a right-sided airspace disease consistent with pneumonia or could be also be an infarct. I personally reviewed the images. Indeed his white count is normal. The patient did have an elevated D-dimer and therefore Devi's hump needs to be considered. I did call the patient to encourage him to go to the ER to get a CTA but the patient is reluctant to do so. I will order 1 to try to do it as urgent as possible but he knows that if he worsens that he needs to go to the ER. He also understands he is taking a risk by not going to the OR in the 1st place. As this could be life her . The patient ultimately will be started on Vantin azithromycin to treat him for pneumonia. He is also going to start a course of steroids to see if this provides some relief as well. Will set him up with oxygen at home. He can use it with activity. In the meantime the patient had an EKG that was abnormal but his cardiac enzymes were okay. The patient is very sick. He will come back in a couple weeks or he will go to the ER if he worsens. If he does have a positive blood clot then he will definitely to go to the ER for further evaluation and treatment. Malignancy he also is on the differential specially with smoking history and also based on the fact that he is losing weight. 06/25/2025 the patient is here for a pulmonary follow-up visit. He is doing actually a lot better from the last time we saw him. Did have a chest x-ray at that time demonstrated pneumonia. Ultimately had a positive D-dimer underwent a CTA also with a positive finding of blood clot. We have sent him Eliquis and she did not want to go to the ER although was extremely expensive. He did not end up taking it. He is on aspirin Plavix although he understands that this does not treat the blood clots. He did complete the antibiotics and did initially use the oxygen but then returned it because he did not feel like he could use it. Today he is actually doing a lot better. He has gained some strength is breathing is back to baseline. We did go for a brief walking oximetry and his oxygen saturation 96%. Denies any chest pain. Although he did think back about a month ago he did have some pleuritic chest discomfort that now is gone. Based on the fact that he had pneumonia and PE and he did not end up taking the anticoagulation for the PE will go ahead and repeat a CAT scan to make sure that he has interval resolution of both. If he still has persistent clot then will have to discuss other alternative therapies. He does not need oxygen anymore he actually returned already which is perfectly fine. He continues his respiratory therapies. In the meantime will start Daliresp to help him with his chronic bronchitis. He did have significant phlegm noted on the CAT scan whenever review the images. [facility] Medical History (Updated 06/25/25 @ 21:52 by Rey Doan MD) Diabetes Diastolic CHF BPH (benign prostatic hyperplasia) Pulmonary embolism CAD (coronary artery disease) Pneumonia Chest pain Hypotension Personal history of nicotine dependence Dyspnea COPD (chronic obstructive pulmonary disease) Essential hypertension Surgical History History of cardiac catheterization (~06/20/22) History of back surgery Family History Father CVD (cardiovascular disease) Mother Stroke Social History Housing: House Alcohol intake: current Alcohol intake frequency: a few times a week Patient Tobacco Use Status: Former Tobacco user Tobacco use type: Cigar Years Smoked: 31 (onset 14, smoked off/on 52yrs for total 33yrs, 1ppd max, 30pyh) e-Cigarette/Vaping Use: Former Use Second Hand Smoke Exposure: No service: No Current occupational status: retired Review of Systems Const Denies chills, Denies excessive sweating, Denies fever(s), Denies headache(s), Reports lethargy, Denies night sweats, Denies poor appetite and Denies weight loss Eyes Denies dry eyes, Denies irritation and Denies itchy eyes ENT Reports Normal hearing present, Denies dizziness and Denies headache(s) Card Reports chest pain, Denies chest pain at rest, Denies chest pain with activity, Denies claudication, Denies leg edema, Denies dyspnea, Denies dyspnea on exertion, Denies orthopnea and Denies paroxysmal nocturnal dyspnea Resp Denies excessive phlegm production, Denies pain on inspiration, Denies pain with cough, Denies dyspnea, Denies dyspnea on exertion and Denies stridor GI Reports no additional complaints Musc Denies myalgias Neuro Reports Normal hearing present, Denies dizziness and Denies headache(s) Endo Denies excessive sweating Rinku/Lymph Denies lymphadenopathy Aller/Immun Denies itchy eyes and Denies seasonal rhinorrhea Physical Exam Vital Signs: Last Vital Signs Pulse 83 06/25/25 14:26 BP 118/74 06/25/25 14:26 Pulse Ox 95 06/25/25 14:26 Oxygen Delivery Method Room Air 06/25/25 14:26 BMI result Body Mass Index 20.0 Const General: alert Neck Neck: Yes normal visual inspection, Yes full ROM and Yes no lymphadenopathy Chest Chest palpation & inspection: normal inspection of the chest Resp Effort & Inspection: normal respiratory effort Auscultation: diminished lung sounds Cardio Rate: regular rate Rhythm: regular rhythm Heart sounds: S1 normal heart sound present and S2 normal heart sound present GI Palpation (GI): Soft to palpation and nontender Auscultation: normal bowel sounds Skin General skin exam: rashes and/or lesions noted Neuro Cranial nerves: Yes Normal hearing present Results Reviewed Results Reviewed: personally reviewed CTA 05/2025 with pneumonia, PE, emphysema and pumonary nodules Assessment & Plan Assessment & Plan (1) Dyspnea: Code(s): R06.00 - Dyspnea, unspecified Category: Medical Qualifiers: Dyspnea type: dyspnea on exertion Qualified Code(s): R06.00 - Dyspnea, unspecified (2) Pneumonia: Code(s): J18.9 - Pneumonia, unspecified organism Category: Medical Qualifiers: Pneumonia type: due to unspecified organism Laterality: right Lung location: unspecified part of lung Qualified Code(s): J18.9 - Pneumonia, unspecified organism (3) COPD (chronic obstructive pulmonary disease): Code(s): J44.9 - Chronic obstructive pulmonary disease, unspecified Category: Medical Qualifiers: COPD type: chronic bronchitis Chronic bronchitis type: mixed simple and mucopurulent Qualified Code(s): J41.8 - Mixed simple and mucopurulent chronic bronchitis (4) Pulmonary nodules: Comment: Imaging from 2023 reviewed demonstrated a pulmonary nodule 3 mm in the right upper lobe and 4 mm in left lower lobe which is stable on repeat imaging in 2024. Patient to continue yearly screening and continue follow up with Pulmonary. Code(s): R91.8 - Other nonspecific abnormal finding of lung field Category: Medical (5) Pulmonary embolism: Comment: Recently diagnosed on CT imaging with a subsegmental PE. Was prescribed Eliquis however denied by pharmacy. Script sent again with diagnosis code and if patient gets reject will attempt prior Auth Code(s): I26.99 - Other pulmonary embolism without acute cor pulmonale Category: Medical Qualifiers: Pulmonary embolism type: single subsegmental (without acute cor pulmonale) Qualified Code(s): I26.93 - Single subsegmental thrombotic pulmonary embolism without acute cor pulmonale Plan Nebulizer therapy Duoneb QID Budesonide BID Repeat CTA TO Reassess PE and Pneumonia Pt did not orange picker Eliquis due to high cost, on ASA and Plavix. Will go to the ED id he develops worsening symptoms start Daliresp 250mcg d/c oxygen, 6MWT is now normal F/U 2-3 months Orders: Orders Basic Metabolic Panel 3 Weeks I26.93 - Single subsegmental thrombotic pulmonary embolism without acute cor pulmonale CT angio chest PE protocol 3 Weeks I26.93 - Single subsegmental thrombotic pulmonary embolism without acute cor pulmonale Medications: New roflumilast (Daliresp) 250 mcg PO DAILY 30 tabs 11RF 30 days J44.9 - Chronic obstructive pulmonary disease, unspecified Coding Level of Care Code Est Pt Level 5 (93558) Diagnoses Dyspnea on exertion R06.00 Dyspnea type: dyspnea on exertion Pneumonia of right lung due to infectious organism, unspecified part of lung J18.9 Pneumonia type: due to unspecified organism Laterality: right Lung location: unspecified part of lung Mixed simple and mucopurulent chronic bronchitis J41.8 COPD type: chronic bronchitis Chronic bronchitis type: mixed simple and mucopurulent Pulmonary nodules R91.8 Single subsegmental pulmonary embolism without acute cor pulmonale I26.93 Pulmonary embolism type: single subsegmental (without acute cor pulmonale) Time Spent (min) 45
== END 2025-06-25 15:06 | disposition home or self-care (01) ==
LOC: HO.HPS 14:20
PROVIDERS: PCP Family Medicine; Visit Provider Hospitalist
DX: R06.00 Dyspnea, unspecified (principal); J18.9 Pneumonia, unspecified organism; J41.8 Mixed simple and mucopurulent chronic bronchitis; R91.8 Other nonspecific abnormal finding of lung field; I26.93 Single subsegmental thrombotic pulmonary embolism without acute cor pulmonale
CPT/HCPCS: 99215

== ENCOUNTER → 2025-06-25 14:19 | Outpatient (BNVA) | payer MEDICARE, SELFPAY | PROVIDERS: PCP Family Medicine; Visit Provider Hospitalist | DX: R06.00 Dyspnea, unspecified (principal); J18.9 Pneumonia, unspecified organism; Z87.891 Personal history of nicotine dependence; J41.8 Mixed simple and mucopurulent chronic bronchitis; R91.8 Other nonspecific abnormal finding of lung field; I26.93 Single subsegmental thrombotic pulmonary embolism without acute cor pulmonale | CPT/HCPCS: 99212 ==

== ENCOUNTER 2025-08-05 06:05 | Outpatient (REF) | payer MEDICARE, SELFPAY ==
[2025-08-05 07:45] LABS: Anion Gap 15 (12-20); Blood Urea Nitrogen 14 mg/dL (9-16); Calcium 9.8 mg/dL (8.4-10.2); Carbon Dioxide 26 mmol/L (22-29); Chloride 106 mmol/L (96-108); Estimated Glomerular Filt Rate > 60; Potassium 4.5 mmol/L (3.3-5.1); Sodium 142 mmol/L (135-145)
== END 2025-08-05 06:06 | disposition home or self-care (01) ==
LOC: HO.LAB 06:05
PROVIDERS: PCP Student in an Organized Health Care Education/Training Program; Visit Provider Hospitalist
DX: I26.93 Single subsegmental thrombotic pulmonary embolism without acute cor pulmonale (principal)
CPT/HCPCS: 36415; 80048

== ENCOUNTER 2025-08-12 10:44 | Outpatient (REF) | payer MEDICARE, SELFPAY ==
--- NOTE | ~2025-08-12 | CT_ITS ---
EXAMINATION: CT CHEST ANGIOGRAPHY WITH IV CONTRAST INDICATION: I26.93 - Single subsegmental thrombotic pulmonary embolism without acute... COMPARISON: An is made with prior examinations dated 06/08/2025 and 04/23/2024. TECHNIQUE: Helical CT scan of the chest was performed following administration of intravenous contrast (65 mL Omnipaque 350). The contrast bolus was timed to optimally opacify the pulmonary arteries. Thin sections were obtained through the pulmonary arteries. Coronal and sagittal reformatted images were generated. 3D/MIP reconstructed images are also obtained and reviewed. This CT exam was performed with one or more of the following dose reduction techniques: automated exposure control, adjustment of the mA and/or kV according to patient size, use of iterative reconstruction technique. DLP: 98 mGy-cm CHEST: THYROID: The thyroid gland is unremarkable. PULMONARY ARTERIES: There is thrombus within a segmental pulmonary artery in the left upper lobe. This appears to be a different branch than that seen on the prior study. No additional pulmonary emboli are identified. LUNGS: There is moderate emphysema. There is a 3 mm nodule in the left upper lobe (series 7, image 40) which was not present previously. There is an additional 10 mm nodule in the left upper lobe (series 7, image 51) which was also not seen previously. MEDIASTINUM: There is no mediastinal lymphadenopathy. GIORGI: There is no hilar lymphadenopathy. CARDIOVASCULATURE: The heart is normal in size. There is no pericardial effusion. There is dilatation of the ascending thoracic aorta measuring up to 4.4 cm in diameter. DEGREE OF CORONARY CALCIFICATION: not evaluable, due to dense contrast in the coronary arteries. PLEURA: There is no pleural effusion. No pneumothorax. MAIN AIRWAYS: The mainstem bronchi and proximal branches are patent. AXILLA: There is no axillary lymphadenopathy. UPPER ABDOMEN: The visualized portions of the liver, spleen, and adrenals are unremarkable. BONES AND SOFT TISSUES: Again seen is a mild compression deformity of an upper thoracic vertebral body. CT/CT angio chest PE protocol IMPRESSION: 1. Solitary left upper lobe pulmonary embolus in a different left upper lobe branch than on 06/08/2025. 2. Right upper lobe nodules measuring up to 10 mm in size. Further evaluation with PET/CT scan and/or thoracic surgery consult is recommended. 3. Findings were sent to Dr. Doan by secure text message on 08/12/2025 at 11:42 AM. Electronically signed by: Alessio Barrett MD 08/12/2025 11:44 AM [facility] [place]
[2025-08-12] MEDS: iohexoL 350 MG/ML 100 ML INFUS..BTL IV (11:18)
== END 2025-08-12 10:45 | disposition home or self-care (01) ==
LOC: HO.CT 10:44
PROVIDERS: PCP Student in an Organized Health Care Education/Training Program; Visit Provider Hospitalist
DX: I26.93 Single subsegmental thrombotic pulmonary embolism without acute cor pulmonale (principal)
CPT/HCPCS: 71275; Q9967

== ENCOUNTER → 2025-08-12 10:48 | Outpatient (BNV) | payer MEDICARE, SELFPAY | PROVIDERS: PCP Student in an Organized Health Care Education/Training Program; Visit Provider Radiology Diagnostic Radiology | DX: I26.93 Single subsegmental thrombotic pulmonary embolism without acute cor pulmonale (principal); R91.8 Other nonspecific abnormal finding of lung field | CPT/HCPCS: 71275 ==

== ENCOUNTER 2025-08-19 12:54 | Outpatient (REF) | payer MEDICARE, SELFPAY ==
[2025-08-19 13:04] LABS: MANUAL DIFF FLAG NO
[2025-08-19 13:36] LABS: Hematocrit 46.1 % (42.0-52.0); Hemoglobin 16.3 g/dl (14.0-18.0); Imm Gran Abs Auto 0.08 X10*3/uL (0.00-0.03); Imm Gran Pct Auto 1.3 % (0.0-0.4); Lymphocytes Absolute Auto 1.1 X10*3/uL (1.2-4.9); Mean Corpuscular HGB Conc 35.4 g/dl (31.0-36.0); Mean Corpuscular Hemoglobin 31.8 pg (27.0-33.0); Mean Corpuscular Volume 90.0 fL (80.0-98.0); NRBC Abs Auto 0.000 X10*3/uL (0.0-0.012); NRBC Pct Auto 0.0 /100WBC (0.0-0.2); Platelet Count 136 X10*3/uL (160-400); Red Blood Count 5.12 X10*6/uL (4.60-5.80); White Blood Count 6.3 X10*3/uL (4.8-10.8)
[2025-08-19 13:38] LABS: INTERNATIONAL NORM RATIO 1.7 (0.9-1.1); Prothrombin Time 20.3 SEC (11.2-13.5)
== END 2025-08-19 12:55 | disposition home or self-care (01) ==
LOC: HO.LAB 12:54
PROVIDERS: PCP Student in an Organized Health Care Education/Training Program; Visit Provider Hospitalist
DX: I25.10 Atherosclerotic heart disease of native coronary artery without angina pectoris (principal); I71.21 Aneurysm of the ascending aorta, without rupture; I10 Essential (primary) hypertension; E78.5 Hyperlipidemia, unspecified
CPT/HCPCS: 36415; 85025; 85610; 99212

== ENCOUNTER 2025-08-19 13:13 | Outpatient (AMB) | payer MEDICARE, SELFPAY ==
[2025-08-19 13:37] VITALS: BP 116/78; PULSE 94; BMI 20.8
--- NOTE | 2025-08-19 13:37 | MHC.OFFVIS ---
Vital Signs 08/19/25 13:37 Height 5 ft 9 in Weight 141 lb 1.533 oz BMI 20.8 BP 116/78 Blood Pressure Location Lt brachial Position Sitting Pulse 94 Intake Visit Reasons: 6 mth f/up dr quinn pt Intake Note: 6 month follow-up hearts ok breathing not good do the the COPD Managing Supervisor Required: No Allergies nystatin (From Bio-Statin) Allergy (Severe, Verified 06/25/25 14:29) liver meperidine (From Demerol) Allergy (Mild, Verified 06/25/25 14:29) Nausea and Vomiting Medication List - Last Reconciled 08/19/25 by Aleks Millan NP albuterol sulfate 2.5 mg inhalation Q6H PRN albuterol sulfate 90 mcg/actuation 2 puffs inhalation Q4H PRN amlodipine 5 mg PO DAILY 90 days aspirin (Adult Low Dose Aspirin) 81 mg PO DAILY budesonide 0.5 mg (2 mL) inhalation BID 30 days clopidogrel 75 mg PO DAILY doxazosin 4 mg PO BEDTIME 90 days ipratropium-albuterol 0.5 mg-3 mg(2.5 mg base)/3 mL 3 mL inhalation QID 30 days loratadine 10 mg PO DAILY metoprolol succinate ER 25 mg PO DAILY multivitamin 1 tab PO DAILY nitroglycerin 0.4 mg sublingual Q5M PRN rosuvastatin 20 mg PO DAILY warfarin 5 mg PO DAILY 30 days HPI Comments Details: This is a 70-year-old male patient coming in for a follow-up visit. Patient with a history of coronary artery disease status post prior PCI to LAD and LCX, hypertension, hyperlipidemia, diabetes, and COPD who was diagnosed with a PE back in May and was initially put on Eliquis therapy however due to it being expensive, patient is now on Coumadin, being followed by pulmonology. Patient also noted that recently on CTA of his chest it was noted that he had new pulmonary nodules and has an upcoming appointment with Dr. Doan tomorrow. Other than his chronic shortness of breath, patient is denying any exertional chest pain, palpitations, dizziness, orthopnea, PND, leg edema, presyncope or syncope. Patient is reporting compliance with all his medications. [facility] Medical History Diabetes Diastolic CHF BPH (benign prostatic hyperplasia) Pulmonary embolism CAD (coronary artery disease) Pneumonia Chest pain Hypotension Personal history of nicotine dependence Dyspnea COPD (chronic obstructive pulmonary disease) Essential hypertension Surgical History History of cardiac catheterization (~06/20/22) History of back surgery Family History Father CVD (cardiovascular disease) Mother Stroke Social History Housing: House Alcohol intake: current Alcohol intake frequency: a few times a week Patient Tobacco Use Status: Former Tobacco user Tobacco use type: Cigar Years Smoked: 31 (onset 14, smoked off/on 52yrs for total 33yrs, 1ppd max, 30pyh) e-Cigarette/Vaping Use: Former Use Second Hand Smoke Exposure: No service: No Current occupational status: retired Review of Systems Const Denies chills, Denies fatigue, Denies fever(s), Denies frequent falls, Denies weakness, Denies weight gain and Denies weight loss ENT Denies dizziness Card Denies chest pain, Denies leg edema, Denies lightheadedness, Denies palpitations, Denies dyspnea, Denies dyspnea on exertion, Denies orthopnea and Denies other (loss of consciousness) Resp Denies cough, Denies dyspnea and Denies dyspnea on exertion GI Denies hematochezia and Denies change in stool character Musc Denies abnormal gait, Denies muscle weakness, Denies numbness, Denies radiating pain into limb and Denies tingling Neuro Denies abnormal gait, Denies dizziness, Denies frequent falls, Denies numbness, Denies tingling and Denies weakness Endo Denies fatigue and Denies palpitations Physical Exam Vital Signs: Last Vital Signs Pulse 94 08/19/25 13:37 BP 116/78 08/19/25 13:37 BMI result Body Mass Index 20.8 Assessment & Plan Assessment & Plan (1) CAD (coronary artery disease): Comment: Status post stenting times 3. Currently on dual antiplatelet therapy with Plavix and aspirin. Advised to continue the medications Code(s): I25.10 - Atherosclerotic heart disease of [place] coronary artery without angina pectoris Category: Medical Qualifiers: Associated angina: without angina Coronary Disease-Associated Artery/Lesion type: [place] artery [place] vs. transplanted heart: [place] heart Qualified Code(s): I25.10 - Atherosclerotic heart disease of [place] coronary artery without angina pectoris Plan: History of coronary artery disease with prior stenting of LAD and LCX in [address] Dr. Thacker. Patient's shortness of breath did not improve with this and was deemed to be related to COPD. Patient states that he was trialed on new medication by pulmonology however due to it being expensive patient is not on it currently. Most recently in May, patient was diagnosed with a PE in his left lung for which he was started on Eliquis therapy however this was discontinued due to financial reasons and is now on Coumadin. Patient was previously on aspirin and Plavix therapy. It was discussed with the patient to stop taking Plavix however patient wanted to stay on this. Currently patient is taking aspirin, Plavix, and Coumadin. No reported signs of bleeding. Patient can stop taking baby aspirin. Patient can remain on Plavix and Coumadin. (2) Ascending aortic aneurysm: Comment: CT imaging reviewed and recent echo both demonstrating in diameter 4.2 cm stable Code(s): I71.2 - Thoracic aortic aneurysm, without rupture Category: Medical Qualifiers: Presence of rupture: without rupture Qualified Code(s): I71.21 - Aneurysm of the ascending aorta, without rupture Plan: 08/12/2025-chest CT showed dilated ascending thoracic aorta at 4.4 cm. And echo from 01/28/2025 showed ascending aorta at 4.2 cm otherwise normal LV systolic function with grade 1 diastolic dysfunction. Also noted on echo was calcification of the aortic valve and mitral annular well with mild aortic regurgitation. (3) Essential hypertension: Code(s): I10 - Essential (primary) hypertension Category: Medical Plan: Blood pressure today is well-controlled. Continue current regimen with a blood pressure goal less than 130/80. Advised on monitoring blood pressures at home. Advised on low-salt diet. (4) Other and unspecified hyperlipidemia: Comment: Previously on Zetia and currently on rosuvastatin 20 mg with good control of LDL. Most recent lipid panel demonstrated an LDL of 47 Code(s): E78.5 - Hyperlipidemia, unspecified Category: Medical Plan: Continue statin therapy with an LDL goal less than 70. Last LDL checked in June of 2024 at 47. We will plan to update this. Advised on heart healthy diet, exercise as tolerated, med compliance, and aggressive management of vascular risk factors. Follow up in 4 months. In the interim, patient will call the office with any concerns or change in symptoms. Advised to seek ER care in case of exertional chest pain not resolved with rest. This note was generated using voice recognition software. While every effort has been made to ensure accuracy and proper rubber stamp die inspector, there may be occasional errors that could affect the content or meaning of the described symptoms. Orders: Orders Lipid Panel Today I25.10 - Atherosclerotic heart disease of [place] coronary artery without angina pectoris Coding Level of Care Code Est Pt Level 4 ([id number]) Complex visit Add On G2211 Diagnoses Coronary artery disease involving [place] coronary artery of [place] heart without angina pectoris I25.10 Associated angina: without angina Coronary Disease-Associated Artery/Lesion type: [place] artery [place] vs. transplanted heart: [place] heart Aneurysm of ascending aorta without rupture I71.21 Presence of rupture: without rupture Essential hypertension I10 Other and unspecified hyperlipidemia E78.5 Time Spent (min) 34 Comment Time spent in reviewing the chart, test results, assessment, counseling and documentation.
== END 2025-08-19 14:20 | disposition home or self-care (01) ==
LOC: HO.HCS 13:14
PROVIDERS: PCP Family Medicine
DX: I25.10 Atherosclerotic heart disease of native coronary artery without angina pectoris (principal); I71.21 Aneurysm of the ascending aorta, without rupture; I10 Essential (primary) hypertension; E78.5 Hyperlipidemia, unspecified
CPT/HCPCS: 99214; G2211

== ENCOUNTER 2025-08-20 08:44 | Outpatient (AMB) | payer MEDICARE, SELFPAY ==
[2025-08-20 09:07] VITALS: BP 104/66; PULSE 73; O2SAT 95; BMI 21.0
--- NOTE | 2025-08-20 09:07 | A.OFFVIS_ITS ---
Vital Signs 08/20/25 09:07 Height 5 ft 9 in Weight 142 lb 3.17 oz BMI 21.0 BP 104/66 Blood Pressure Location Lt brachial Position Sitting Pulse 73 Pulse Source Pulse Oximeter Pulse Oximetry (%) 95 Oxygen Delivery Method Room Air Intake Visit Reasons: PE/Pulmonary Nodule, Bolt Loader Required: No Accompanied by: Self / Same As Patient Allergies nystatin (From Bio-Statin) Allergy (Severe, Verified 08/20/25 09:10) liver meperidine (From Demerol) Allergy (Mild, Verified 08/20/25 09:10) Nausea and Vomiting HPI Comments Details: The patient is a 70-year-old gentleman former smoker quit 2 years ago was been complaining of worsening dyspnea on exertion. He also had a significant congested cough. He underwent pulmonary function studies few months ago demonstrating a moderate to severe degree of COPD. In addition to that air trapping along with severe diffusion impairment. He was prescribed Breo and was provided samples. When he started the Breo in used it once a day his symptoms improved dramatically. The congestion improved dramatically. He states up to l franki 90% improvement. Still had a cough is still has some shortness of breath especially going up a flight of stairs. He is concerned because his insurance company does not cover prescriptions in these inhalers a very expensive. The patient had a chest x-ray that I personally reviewed demonstrating hyperinflated lungs. With his smoking history he is a good candidate for the lung cancer screening program. 05/19/2021 the patient is here for pulmonary follow-up visit. He still complaining of significant dyspnea on exertion and congested cough. The Breo was helpful in clearing the phlegm. But, did not improve his respiratory status. He also is without injuring so he does not want to take it. He also tried the nebulized therapy but the did not feel that this helped his respiratory status either. In the meantime he did undergo the lung cancer screening program and found to a nodular density in the upper lobe the greater than cm and also appeared to be in the bronchial lesion. Therefore him doing the PET scan demonstrating no evidence of any FDG activity in the right upper lobe nodule in addition to that appear that he clear the left mainstem bronchus nodular density. Although he may have mucus plugging or an aspiration of foreign body that is moving around his lungs. Patient is reluctant to undergo a repeat CT scan a times soon. Will try to push it out to the spring. He understands PET scan is reassuring but still did nodules subsolid in nature and smoldering malignant process is still in differential. These smoldering processes do not have to be active on PET. In addition to that it appears that his PET scan showed minimal activity around the heart suggesting a possibility of underlying CAD. At this point the patient will be prescribed azithromycin 3 times a week for chronic bronchitis and also tried a low dose of a prednisone taper to see if he improves his respiratory status. Will follow-up in the springtime with repeat CT scan. 03/03/2022 the patient is here for a pulmonary follow-up visit. The patient overall is feeling about the same. He continues to have dyspnea on exertion moderate severity. He does not have significant improvement from the respiratory therapy. Explained to him that is mainly due to the fact that he has significant emphysema and hypoxia. The patient is not interested in oxygen at this time. He may benefit from oxygen in the future. The patient also had a CT scan of the chest in November 2021 which we personally reviewed together. It appears he does numerous pulmonary nodules some that are new. Subcentimeter in size. The right upper lobe density has improved significantly. He has other areas that have slightly worsened as far as the atelectasis. He also has significant emphysema. Based on the fact that the findings have been showing some improvement will follow-up in 1 year to make sure that new pulmonary nodules of not progressed. Will have the patient return in 6 months. If his symptoms are any worse then we can consider repeating the CT scan at an earlier time. 09/27/2022 the patient is here for a pulmonary follow-up visit. Since we last spoke he had additional cardiac testing. He had a cardiac catheterization and had a stent to the LAD and subsequently after that required 2 additional stents 1 to the circumflex. In the meantime he continues to participate in cardiac rehab. He does have shortness of breath. He has a rescue inhaler that he has tried and has not noticed any significant improvement. He has not undergone pulmonary function studies in some time. The patient also has underlying pulmonary nodules. He has last CT scan of the chest was back in November 2021 were demonstrated that some of the nodular densities had improved although he had new pulmonary nodules. He is scheduled to have a repeat CT scan in November of 2022. However, with his ongoing cardiac issues the patient would like to postpone that. Therefore will push it out to 6 months. If however the patient develops any worsening symptoms we can always reconsider. Otherwise will follow-up in [address] scan of the chest. 04/04/2023 the patient is here for a pulmonary follow-up visit. The patient is concerned because his strides in the ER with significant back pain. His breathing is about the same. Still complains of dyspnea on exertion moderate severity. He tried multiple inhalers without any significant improvement. He does uses rescue inhaler as the only 1 that really provide him some relief. The patient is willing to try Combivent. I will send that to the pharmacy to see if this is effective for him. In the meantime we did get a CT scan of the chest to follow up with the new pulmonary nodules that were noted on previous CT scan. It is reassuring that the bigger nodules have subsided. He still has pulmonary nodules and also extensive emphysema. Will go ahead and plan to repeat the CT scan that year's time. Otherwise patient for the Combivent continue with an exercise regimen. 11/26/2024 the patient is here for pulmonary follow-up visit. Continues to complain of shortness of breath dyspnea on exertion chest tightness. He has been using the DuoNeb 3 to 4 times a day. Only get some partial relief for just an hour to an many symptoms reoccur. In addition to that he has had serial CT scans of his underlying pulmonary nodules emphysema. His next CT scan scheduled for the summer. His respiratory exam is limited. Very diminished breath sounds. He does also have a component of chronic bronchitis. He is tends to respond better to the nebulized therapy as he does not respond to the inhalers. Will go ahead and add budesonide to his current regimen and hopefully that will provide him with improvement in his ever capacity. Her does he can always call so we can address any other issues. In the meantime we will follow- up with us sometime in May after his CT scan so we can review that and assess his progress on the addition of the medication. 06/02/2025 the patient is here for sick visit. He has been sick now for about 4 weeks where he has had worsening shortness of breath with minimal activity also has had no appetite weight loss dizziness chest discomfort. He is with a significant other who recommended he go to the ER but he has been reluctant to go. He has been having some shortness of breath. Denies any cough denies any fevers. During the visit we did go for brief walking oximetry the patient did desaturate down to 80%. I did place him on 2 L pulse but he does not breathe through his nose only to his mouth so therefore we had to stay with the gas tanks with oxygen 2 L to maintain a pulse ox of 94% with activity. The patient did well with the oxygen. In the meantime he also underwent a chest x-ray demonstrating a right-sided airspace disease consistent with pneumonia or could be also be an infarct. I personally reviewed the images. Indeed his white count is normal. The patient did have an elevated D-dimer and therefore Devi's hump needs to be considered. I did call the patient to encourage him to go to the ER to get a CTA but the patient is reluctant to do so. I will order 1 to try to do it as urgent as possible but he knows that if he worsens that he needs to go to the ER. He also understands he is taking a risk by not going to the OR in the 1st place. As this could be life her . The patient ultimately will be started on Vantin azithromycin to treat him for pneumonia. He is also going to start a course of steroids to see if this provides some relief as well. Will set him up with oxygen at home. He can use it with activity. In the meantime the patient had an EKG that was abnormal but his cardiac enzymes were okay. The patient is very sick. He will come back in a couple weeks or he will go to the ER if he worsens. If he does have a positive blood clot then he will definitely to go to the ER for further evaluation and treatment. Malignancy he also is on the differential specially with smoking history and also based on the fact that he is losing weight. 06/25/2025 the patient is here for a pulmonary follow-up visit. He is doing actually a lot better from the last time we saw him. Did have a chest x-ray at that time demonstrated pneumonia. Ultimately had a positive D-dimer underwent a CTA also with a positive finding of blood clot. We have sent him Eliquis and she did not want to go to the ER although was extremely expensive. He did not end up taking it. He is on aspirin Plavix although he understands that this does not treat the blood clots. He did complete the antibiotics and did initially use the oxygen but then returned it because he did not feel like he could use it. Today he is actually doing a lot better. He has gained some strength is breathing is back to baseline. We did go for a brief walking oximetry and his oxygen saturation 96%. Denies any chest pain. Although he did think back about a month ago he did have some pleuritic chest discomfort that now is gone. Based on the fact that he had pneumonia and PE and he did not end up taking the anticoagulation for the PE will go ahead and repeat a CAT scan to make sure that he has interval resolution of both. If he still has persistent clot then will have to discuss other alternative therapies. He does not need oxygen anymore he actually returned already which is perfectly fine. He continues his respiratory therapies. In the meantime will start Daliresp to help him with his chronic bronchitis. He did have significant phlegm noted on the CAT scan whenever review the images. 08/20/2025 the patient is here for pulmonary follow-up visit. Overall the patient is doing well. Doing well without the oxygen. We did review his last CTA in personally. It does appear to have a new small pulmonary emboli in the left upper lobe. There is definitely a pulmonary vascular defect consistent with a pulmonary emboli. The patient is agreeable to start Coumadin. His last INR yesterday was 1.7. He does have an appointment with the Coumadin clinic Sunday at 09:00. I did give him all the information. In the meantime the patient also has a new right upper lobe pulmonary nodule measuring about a cm. It is concerning in appearance. It is not clear if this nodule was there back in May although it does not look like it the patient did have a pneumonia in that area. Still concerning nodules specially with hypercoagulable state. Therefore the patient will need a PET scan. Will hold off until September to make sure that he tolerates the Coumadin and stable axis a clot before deciding any other potential invasive or noninvasive diagnostic interventions. He continues uses nebulizer therapy as prescribed. He is still brings up phlegm. He did not start the Daliresp because it was very expensive. The patient has an appointment in October 05 which she will keep. Hopefully we get the PET scan before that is so we can review during that visit. If any issues arise she can always call for further recommendations. [facility] Medical History (Updated 08/20/25 @ 20:30 by Rey Doan MD) Pulmonary nodule 1 cm or greater in diameter Diabetes Diastolic CHF BPH (benign prostatic hyperplasia) Pulmonary embolism CAD (coronary artery disease) Pneumonia Chest pain Hypotension Personal history of nicotine dependence Dyspnea COPD (chronic obstructive pulmonary disease) Essential hypertension Surgical History History of cardiac catheterization (~06/20/22) History of back surgery Family History Father CVD (cardiovascular disease) Mother Stroke Social History Housing: House Alcohol intake: current Alcohol intake frequency: a few times a week Patient Tobacco Use Status: Former Tobacco user Tobacco use type: Cigar Years Smoked: 31 (onset 14, smoked off/on 52yrs for total 33yrs, 1ppd max, 30pyh) e-Cigarette/Vaping Use: Former Use Second Hand Smoke Exposure: No service: No Current occupational status: retired Review of Systems Const Denies chills, Denies excessive sweating, Denies fever(s), Denies headache(s), Reports lethargy, Denies night sweats, Denies poor appetite and Denies weight loss Eyes Denies dry eyes, Denies irritation and Denies itchy eyes ENT Reports Normal hearing present, Denies dizziness and Denies headache(s) Card Reports chest pain, Denies chest pain at rest, Denies chest pain with activity, Denies claudication, Denies leg edema, Denies dyspnea, Denies dyspnea on exertion, Denies orthopnea and Denies paroxysmal nocturnal dyspnea Resp Denies excessive phlegm production, Denies pain on inspiration, Denies pain with cough, Denies dyspnea, Denies dyspnea on exertion and Denies stridor GI Reports no additional complaints Musc Denies myalgias Neuro Reports Normal hearing present, Denies dizziness and Denies headache(s) Endo Denies excessive sweating Rinku/Lymph Denies lymphadenopathy Aller/Immun Denies itchy eyes and Denies seasonal rhinorrhea Physical Exam Vital Signs: Last Vital Signs Pulse 73 08/20/25 09:07 BP 104/66 08/20/25 09:07 Pulse Ox 95 08/20/25 09:07 Oxygen Delivery Method Room Air 08/20/25 09:07 BMI result Body Mass Index 21.0 Const General: alert Neck Neck: Yes normal visual inspection, Yes full ROM and Yes no lymphadenopathy Chest Chest palpation & inspection: normal inspection of the chest Resp Effort & Inspection: normal respiratory effort Auscultation: diminished lung sounds Cardio Rate: regular rate Rhythm: regular rhythm Heart sounds: S1 normal heart sound present and S2 normal heart sound present GI Palpation (GI): Soft to palpation and nontender Auscultation: normal bowel sounds Skin General skin exam: rashes and/or lesions noted Neuro Cranial nerves: Yes Normal hearing present Assessment & Plan Assessment & Plan (1) Dyspnea: Code(s): R06.00 - Dyspnea, unspecified Category: Medical Qualifiers: Dyspnea type: dyspnea on exertion Qualified Code(s): R06.00 - Dyspnea, unspecified (2) COPD (chronic obstructive pulmonary disease): Code(s): J44.9 - Chronic obstructive pulmonary disease, unspecified Category: Medical Qualifiers: COPD type: chronic bronchitis Chronic bronchitis type: mixed simple and mucopurulent Qualified Code(s): J41.8 - Mixed simple and mucopurulent chronic bronchitis (3) Pulmonary nodules: Comment: Imaging from 2023 reviewed demonstrated a pulmonary nodule 3 mm in the right upper lobe and 4 mm in left lower lobe which is stable on repeat imaging in 2024. Patient to continue yearly screening and continue follow up with Pulmonary. Code(s): R91.8 - Other nonspecific abnormal finding of lung field Category: Medical (4) Pulmonary embolism: Comment: recurrent PE Code(s): I26.99 - Other pulmonary embolism without acute cor pulmonale Category: Medical Qualifiers: Pulmonary embolism type: single subsegmental (without acute cor pulmonale) Qualified Code(s): I26.93 - Single subsegmental thrombotic pulmonary embolism without acute cor pulmonale (5) Pulmonary nodule 1 cm or greater in diameter: Code(s): R91.1 - Solitary pulmonary nodule Category: Medical (6) Pneumonia: Comment: resolved Code(s): J18.9 - Pneumonia, unspecified organism Category: Medical Qualifiers: Laterality: right Lung location: unspecified part of lung Pneumonia type: due to unspecified organism Qualified Code(s): J18.9 - Pneumonia, unspecified organism Plan Nebulizer therapy Duoneb QID Budesonide BID PET scan 09/2025 at [facility] for >1cm RUL nodule continue Coumadin, Coumadin clinic 08/26 at 9am stopped Daliresp 250mcg (too expensive) F/U Oct 05 2025 Orders: Orders PET CT fusion skull to thigh Today R91.1 - Solitary pulmonary nodule Coding Level of Care Code Complex visit Add On G2211 Diagnoses Dyspnea on exertion R06.00 Dyspnea type: dyspnea on exertion Mixed simple and mucopurulent chronic bronchitis J41.8 COPD type: chronic bronchitis Chronic bronchitis type: mixed simple and mucopurulent Pulmonary nodules R91.8 Single subsegmental pulmonary embolism without acute cor pulmonale I26.93 Pulmonary embolism type: single subsegmental (without acute cor pulmonale) Pulmonary nodule 1 cm or greater in diameter R91.1 Pneumonia of right lung due to infectious organism, unspecified part of lung J18.9 Laterality: right Lung location: unspecified part of lung Pneumonia type: due to unspecified organism Time Spent (min) 50
== END 2025-08-20 09:35 | disposition home or self-care (01) ==
LOC: HO.HPS 08:44
PROVIDERS: PCP Student in an Organized Health Care Education/Training Program; Visit Provider Hospitalist
DX: R06.00 Dyspnea, unspecified (principal); J41.8 Mixed simple and mucopurulent chronic bronchitis; R91.8 Other nonspecific abnormal finding of lung field; I26.93 Single subsegmental thrombotic pulmonary embolism without acute cor pulmonale; R91.1 Solitary pulmonary nodule; J18.9 Pneumonia, unspecified organism
CPT/HCPCS: 99215; G2211

== ENCOUNTER → 2025-08-20 08:44 | Outpatient (BNVA) | payer MEDICARE, SELFPAY | PROVIDERS: PCP Student in an Organized Health Care Education/Training Program; Visit Provider Hospitalist | DX: J41.8 Mixed simple and mucopurulent chronic bronchitis (principal); R91.8 Other nonspecific abnormal finding of lung field; I26.93 Single subsegmental thrombotic pulmonary embolism without acute cor pulmonale; R91.1 Solitary pulmonary nodule; R06.00 Dyspnea, unspecified; J18.9 Pneumonia, unspecified organism | CPT/HCPCS: 99212 ==

== ENCOUNTER 2025-08-26 08:39 | Outpatient (AMB) | payer MEDICARE, SELFPAY ==
--- NOTE | 2025-08-26 09:23 | MHC.OFFVISCO ---
Intake Intake Visit Reasons: Anticoagulation Automatic Drill Operator Required: No Allergies nystatin (From Bio-Statin) Allergy (Severe, Verified 08/20/25 09:10) liver meperidine (From Demerol) Allergy (Mild, Verified 08/20/25 09:10) Nausea and Vomiting Medication List - Last Reconciled 08/26/25 by Ebonie Castelan RN albuterol sulfate 2.5 mg inhalation Q6H PRN albuterol sulfate 90 mcg/actuation 2 puffs inhalation Q4H PRN amlodipine 5 mg PO DAILY 90 days budesonide 0.5 mg (2 mL) inhalation BID 30 days clopidogrel 75 mg PO DAILY doxazosin 4 mg PO BEDTIME 90 days ipratropium-albuterol 0.5 mg-3 mg(2.5 mg base)/3 mL 3 mL inhalation QID 30 days loratadine 10 mg PO DAILY metoprolol succinate ER 25 mg PO DAILY multivitamin 1 tab PO DAILY nitroglycerin 0.4 mg sublingual Q5M PRN rosuvastatin 20 mg PO DAILY warfarin 5 mg PO DAILY 30 days Nursing Note INR: 2.4- in therapeutic range 2-3 Medications and supplements reviewed- new med magnesium No changes in health, diet, medications, or supplements, Denies any signs and symptoms of bleeding or bruising or clotting. Bleeding, bruising, clotting discussed - small bruise left upper chest from grandson. Nutritional guidance given - food list provided and reviewed with pt pt with poor appetite- takes premiere protein 1-2 cans daily Dose: cont 5mg daily F/U INR: Sunday08/31/25 Patient verbalizes understanding of instructions given pt new admit to anticoag. medication list reviewed and updated, pmh reviewed. educational material provided and reviewed with pt pt states emphysema due to occupational exposures, past cigar smoker. pt had recent pneumonia and PE, also nodules - sees [facility] pulmonology pt states shortness of breath with exert. pt started warfarin on 08/14/25. last INR 08/19/25 and was 1.7 per lab draw. pt states takes warfarin 5mg daily pt agreement and pt pt compliance reviewed with pt and signed. 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 Illness/Depression: Yes (depression due to limited activity) Surgeries: back surgery, hip surgeries, mouth surgeries, cataracts Anti-Coag. Education Record Teaching Recipient: Patient What is the easiest way to learn: Listening, Demonstration and Education Packet Barriers to Learning Identified: Physical (limited activity - shortness of breath with exert) Physical: Mobility Significant other who can be involved in Teaching Process when Indicated: Jennifer- significant other, If Barriers are identified, describe method to overcome: slow pace, purse lip breathing, rest periods Automatic Drill Operator Required: No Readiness To Learn: Good Teaching Methods: Demonstration, Handout and Teach Back Response to Teaching: Reinforcement Needed Re-Education needs: Reinforce Content Education Intervention/Brief Description of Teaching 1. Able to state reason for taking Warfarin: Yes 2. Able to state Pain Management techniques: Yes 3. Able to state action of Warfarin.: Yes Able to state current dose, pill color, how and when Warfarin to be taken: Yes Able to identify signs of bleeding &/or clotting: Yes 4. Able to identify need to keep diet consistent in regard to vitamin K intake: Yes Able to state restriction on alcohol: Yes 5. Able to state need for compliance with PT/INR testing: Yes Describes rationale for carrying ID and wearing Medic Alert bracelet: Yes (refuses to wear) Patient instructed to monitor for excess bruising or signs/symptoms of clotting or bleeding: Yes 6. Able to state that there are drugs that interact with Warfin: Yes 7. Able to state the need to seek medical attention when illness/injury occur.: Yes Describes the need to avoid activities with high risk of injury: Yes 8. Able to state duration of treatment: Yes 9. Demonstrates understanding of notifying all providers of pending dental surgical, or other invasive procedures: Yes 10. Able to state Home Care instructions Questionnaires HAS-BLED Does the patient had uncontrolled Hypertension?: No Does the patient have renal disease?: No Does the patient have liver disease?: No Does the patient have a history of stroke?: No Has the patient had major bleeding or predisposition to bleeding?: No Does the patient have labile INRs?: Yes Is the patient over 65 years of age?: Yes Is the patient on medications that gives them a predisposition to bleeding?: Yes Does the patient use alcohol?: Yes HAS-BLED Score: 4 CHADSVASC Age: 66-74 Gender: Male Does the patient have a history of CHF?: Yes Does the patient have a history of Hypertension?: Yes Does the patient have a history of Stroke/TIA/Thromboembolism?: Yes Does the patient have a history of Vascular Disease (prior VA, PAD or aortic plaque)?: Yes Does the patient have a history of Diabetes?: Yes CHADS VACS Score: 7 Elvis Prediction Score Rsk VTE Active Cancer: No Previous VTE, excluding superficial vein thrombosis: Yes Reduced mobility: Yes Already known Thrombophilic Condition: No With-in last month Trauma and/or Surgery: No Elderly 70 year or older: Yes Heart and/or Respiratory Failure: Yes Acute Myocardial infarction and/or Ischemic Stroke: No Acute Infection and/or Rheumatologic Disorder: No Obesity (BMI 30 or greater): No Ongoing Hormonal Treatment: No Score: 8 Elvis Score less than 4; Low Risk of VTE Elvis Score 4 or greater; High Risk of VTE Coding Level of Care Code Est Patient Level 1 Diagnoses Current use of anticoagulant therapy Z79.01 Results AMB INR Fingerstick AMB INR Fingerstick 2.4 Last Edit by Ebonie Castelan RN on 08/26/25 09:42 interface delay Assessment & Plan Assessment & Plan (1) Current use of anticoagulant therapy: Code(s): Z79.01 - skilled nursing (current) use of anticoagulants Category: Medical Medications: New magnesium oxide 400 mg PO DAILY
[2025-08-27 08:14] LABS: Prothrombin Time Whole Bld POC 28.6 sec (11.1-13.5); ~PT, ~INR - Anti Coag Clinic 2.4 (0.9-1.1)
== END 2025-08-26 10:01 | disposition home or self-care (01) ==
LOC: HO.ACS 08:39
PROVIDERS: PCP Student in an Organized Health Care Education/Training Program; Visit Provider Internal Medicine Medical Oncology
DX: Z79.01 Long term (current) use of anticoagulants (principal)

== ENCOUNTER → 2025-08-26 08:39 | Outpatient (BNVA) | payer MEDICARE, SELFPAY | PROVIDERS: PCP Student in an Organized Health Care Education/Training Program; Visit Provider Internal Medicine Medical Oncology | DX: Z79.01 Long term (current) use of anticoagulants (principal) | CPT/HCPCS: 85610; 99211 ==

== ENCOUNTER 2025-08-31 08:48 | Outpatient (AMB) | payer MEDICARE, SELFPAY ==
[2025-08-31 09:03] LABS: Prothrombin Time Whole Bld POC 16.8 sec (11.1-13.5); ~PT, ~INR - Anti Coag Clinic 1.4 (0.9-1.1)
--- NOTE | 2025-08-31 09:16 | MHC.OFFVISCO ---
Intake Intake Visit Reasons: Anticoagulation Allergies nystatin (From Bio-Statin) Allergy (Severe, Verified 08/31/25 08:55) liver bee pollen (bee stings) Allergy (Intermediate, Verified 08/31/25 08:57) swelling meperidine (From Demerol) Allergy (Mild, Verified 08/31/25 08:55) Nausea and Vomiting Medication List - Last Reconciled 08/31/25 by Jyoti Barrera RN albuterol sulfate 2.5 mg inhalation Q6H PRN albuterol sulfate 90 mcg/actuation 2 puffs inhalation Q4H PRN amlodipine 5 mg PO DAILY 90 days budesonide 0.5 mg (2 mL) inhalation BID 30 days clopidogrel 75 mg PO DAILY doxazosin 4 mg PO BEDTIME 90 days ipratropium-albuterol 0.5 mg-3 mg(2.5 mg base)/3 mL 3 mL inhalation QID 30 days loratadine 10 mg PO DAILY magnesium oxide 400 mg PO DAILY metoprolol succinate ER 25 mg PO DAILY multivitamin 1 tab PO DAILY nitroglycerin 0.4 mg sublingual Q5M PRN rosuvastatin 20 mg PO DAILY warfarin 5 mg See Protocol PO DAILY 30 days Nursing Note INR: 1.4 in therapeutic range Medications and supplements reviewed No changes in health, diet, medications, or supplements, Denies any signs and symptoms of bleeding or bruising or clotting. Bleeding, bruising, clotting discussed Nutritional guidance given Dose: 7.5mg (5mg now and 2.5mg tonight) today and tomorrow/ 5mg x 5 days F/U INR: recheck INR Sunday09/04/2025 Patient verbalizes understanding of instructions given - instructed to go to ER with any c/p or increased sob or any other clot like symptoms Anti-Coag Initial Assessment Social Hx Patient Tobacco Use Status: Former Tobacco user Tobacco use type: Cigar alcohol intake: current Alcohol intake frequency: a few times a week Cardiovascular Hx: HTN, Angina, CAD, CHF and Other (ASHD) Lung Disease HX: COPD, Emphysema and DVT/PE Endocrine Hx: Diabetes Blood Disorder Hx: Hyperlipidemia Hx: Prostate Neurological Hx: Aneurysm Cancer HX: No Psych. Illness/Depression: Yes (depression due to limited activity) Coding Level of Care Code Est Patient Level 1 Diagnoses Current use of anticoagulant therapy Z79.01 Results AMB INR Fingerstick AMB INR Fingerstick 1.4 Last Edit by Jyoti Barrera RN on 08/31/25 09:05 manual entry Assessment & Plan Assessment & Plan (1) Current use of anticoagulant therapy: Code(s): Z79.01 - [facility] (current) use of anticoagulants Category: Medical
== END 2025-08-31 09:23 | disposition home or self-care (01) ==
LOC: HO.ACS 08:48
PROVIDERS: PCP Student in an Organized Health Care Education/Training Program; Visit Provider Internal Medicine Medical Oncology
DX: Z79.01 Long term (current) use of anticoagulants (principal)

== ENCOUNTER → 2025-08-31 08:48 | Outpatient (BNVA) | payer MEDICARE, SELFPAY | PROVIDERS: PCP Student in an Organized Health Care Education/Training Program; Visit Provider Internal Medicine Medical Oncology | DX: Z79.01 Long term (current) use of anticoagulants (principal) | CPT/HCPCS: 85610; 99211 ==

== ENCOUNTER 2025-09-04 11:23 | Outpatient (AMB) | payer MEDICARE, SELFPAY ==
[2025-09-04 11:45] LABS: Prothrombin Time Whole Bld POC 30.5 sec (11.1-13.5); ~PT, ~INR - Anti Coag Clinic 2.5 (0.9-1.1)
--- NOTE | 2025-09-04 12:02 | MHC.OFFVISCO ---
Intake Intake Visit Reasons: Anticoagulation Allergies nystatin (From Bio-Statin) Allergy (Severe, Verified 08/31/25 08:55) liver bee pollen (bee stings) Allergy (Intermediate, Verified 08/31/25 08:57) swelling meperidine (From Demerol) Allergy (Mild, Verified 08/31/25 08:55) Nausea and Vomiting Nursing Note INR: 2.5 in therapeutic range Medications and supplements reviewed Pt reported he had his usual rum and marajuana tincture x 4 days/ week ( had it yesterday) No changes in health, diet, medications, or supplements, Denies any signs and symptoms of bleeding or bruising or clotting. Bleeding, bruising, clotting discussed Nutritional guidance given - broccoli x 2 days / week Dose: 5mg remainder of the week then 7.5mg x 1 day/ 5mg x 6 days F/U INR: 1 week Patient verbalizes understanding of instructions given Anti-Coag Initial Assessment Social Hx Patient Tobacco Use Status: Former Tobacco user Tobacco use type: Cigar alcohol intake: current Alcohol intake frequency: a few times a week Cardiovascular Hx: HTN, Angina, CAD, CHF and Other (ASHD) Lung Disease HX: COPD, Emphysema and DVT/PE Endocrine Hx: Diabetes Blood Disorder Hx: Hyperlipidemia Hx: Prostate Neurological Hx: Aneurysm Cancer HX: No Psych. 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
== END 2025-09-04 12:20 | disposition home or self-care (01) ==
LOC: HO.ACS 11:23
PROVIDERS: PCP Student in an Organized Health Care Education/Training Program; Visit Provider Internal Medicine Medical Oncology
DX: Z79.01 Long term (current) use of anticoagulants (principal)

== ENCOUNTER → 2025-09-04 11:23 | Outpatient (BNVA) | payer MEDICARE, SELFPAY | PROVIDERS: PCP Student in an Organized Health Care Education/Training Program; Visit Provider Internal Medicine Medical Oncology | DX: I26.93 Single subsegmental thrombotic pulmonary embolism without acute cor pulmonale (principal); Z51.81 Encounter for therapeutic drug level monitoring; Z79.01 Long term (current) use of anticoagulants | CPT/HCPCS: 85610; 99211 ==

== ENCOUNTER 2025-09-11 11:23 | Outpatient (AMB) | payer MEDICARE, SELFPAY ==
[2025-09-11 11:37] LABS: Prothrombin Time Whole Bld POC 30.6 sec (11.1-13.5); ~PT, ~INR - Anti Coag Clinic 2.6 (0.9-1.1)
--- NOTE | 2025-09-11 11:43 | MHC.OFFVISCO ---
Intake Intake Visit Reasons: Anticoagulation Allergies nystatin (From Bio-Statin) Allergy (Severe, Verified 09/11/25 11:28) liver bee pollen (bee stings) Allergy (Intermediate, Verified 09/11/25 11:28) swelling meperidine (From Demerol) Allergy (Mild, Verified 09/11/25 11:28) Nausea and Vomiting Medication List - Last Reconciled 09/11/25 by Pema Urias RN albuterol sulfate 2.5 mg inhalation Q6H PRN albuterol sulfate 90 mcg/actuation 2 puffs inhalation Q4H PRN amlodipine 5 mg PO DAILY 90 days budesonide 0.5 mg (2 mL) inhalation BID 30 days clopidogrel 75 mg PO DAILY doxazosin 4 mg PO BEDTIME 90 days ipratropium-albuterol 0.5 mg-3 mg(2.5 mg base)/3 mL 3 mL inhalation QID 30 days loratadine 10 mg PO DAILY magnesium oxide 400 mg PO DAILY metoprolol succinate ER 25 mg PO DAILY multivitamin 1 tab PO DAILY nitroglycerin 0.4 mg sublingual Q5M PRN rosuvastatin 20 mg PO DAILY warfarin 5 mg See Protocol PO DAILY 30 days Nursing Note INR: 2.6 in therapeutic range of 2-3 Medications and supplements reviewed No changes in health, diet, medications, or supplements, Denies any signs and symptoms of bleeding or bruising or clotting. Bleeding, bruising, clotting discussed Nutritional guidance given Dose: 5mg daily F/U INR: 09/23/25 Patient verbalizes understanding of instructions with read back given Anti-Coag Initial Assessment Social Hx Patient Tobacco Use Status: Former Tobacco user Tobacco use type: Cigar alcohol intake: current Alcohol intake frequency: a few times a week Cardiovascular Hx: HTN, Angina, CAD, CHF and Other (ASHD) Lung Disease HX: COPD, Emphysema and DVT/PE Endocrine Hx: Diabetes Blood Disorder Hx: Hyperlipidemia Hx: Prostate Neurological Hx: Aneurysm Cancer HX: No Psych. Illness/Depression: Yes (depression due to limited activity) Coding Level of Care Code Est Patient Level 1 Diagnoses Current use of anticoagulant therapy Z79.01 Assessment & Plan Assessment & Plan (1) Current use of anticoagulant therapy: Code(s): Z79.01 - custodial (current) use of anticoagulants Category: Medical
== END 2025-09-11 11:45 | disposition home or self-care (01) ==
LOC: HO.ACS 11:23
PROVIDERS: PCP Student in an Organized Health Care Education/Training Program; Visit Provider Internal Medicine Medical Oncology
DX: Z79.01 Long term (current) use of anticoagulants (principal)

== ENCOUNTER → 2025-09-11 11:23 | Outpatient (BNVA) | payer MEDICARE, SELFPAY | PROVIDERS: PCP Student in an Organized Health Care Education/Training Program; Visit Provider Internal Medicine Medical Oncology | DX: I26.93 Single subsegmental thrombotic pulmonary embolism without acute cor pulmonale (principal); Z79.01 Long term (current) use of anticoagulants; Z51.81 Encounter for therapeutic drug level monitoring | CPT/HCPCS: 85610; 99211 ==

== ENCOUNTER 2025-09-15 09:20 | Outpatient (AMB) | payer MEDICARE, SELFPAY ==
--- NOTE | 2025-09-15 09:21 | MHC.PC.OV ---
Vital Signs 09/15/25 09:22 Height 5 ft 9 in Weight 144 lb 4 oz BMI 21.3 BP 120/80 Blood Pressure Location Lt brachial Position Sitting Respiration 16 Pulse 76 Pulse Source Pulse Oximeter Temp 97.1 F Temp Source Temporal Artery Scan Pulse Oximetry (%) 95 Oxygen Delivery Method Room Air Intake Visit Reasons: 3 month f/u Piling Setter Required: No Accompanied by: Self / Same As Patient Allergies nystatin (From Bio-Statin) Allergy (Severe, Verified 09/15/25 09:22) liver bee pollen (bee stings) Allergy (Intermediate, Verified 09/15/25 09:22) swelling meperidine (From Demerol) Allergy (Mild, Verified 09/15/25 09:22) Nausea and Vomiting Medication List - Last Reconciled 09/15/25 by Ye Morejon MD albuterol sulfate 90 mcg/actuation 2 puffs inhalation Q4H PRN amlodipine 5 mg PO DAILY 90 days budesonide 0.5 mg (2 mL) inhalation BID 30 days clopidogrel 75 mg PO DAILY doxazosin 4 mg PO BEDTIME 90 days ipratropium-albuterol 0.5 mg-3 mg(2.5 mg base)/3 mL 3 mL inhalation QID 30 days loratadine 10 mg PO DAILY magnesium oxide 400 mg PO DAILY metoprolol succinate ER 25 mg PO DAILY multivitamin 1 tab PO DAILY nitroglycerin 0.4 mg sublingual Q5M PRN rosuvastatin 20 mg PO DAILY warfarin 5 mg See Protocol PO DAILY 30 days Tobacco use date assessed: 06/16/25 Fall risk assessment: No Falls in past year Last assessed Fall Risk: 09/15/25 Dental Screening Dental Screen Date: 06/16/25 HPI HPI Comments History of Present Illness Details History of Present Illness The patient is a 70-year-old male presenting for a follow-up visit for management of multiple chronic medical conditions. He reports that his breathing is his primary limitation, stating he is never feeling 100%. Regarding his COPD, the patient is on albuterol as needed, budesonide, and ipratropium-albuterol nebulizer, which he states helps his breathing a little. He notes he would be short of breath walking to the office if he did not use his medications. His dyspnea is exacerbated by both cold and hot weather. He denies recent hospitalizations for his breathing but mentions that tests were performed in Dr. Doan's office to avoid an admission. He also has a known pulmonary nodule and is scheduled for a PET scan. For hypertension, the patient takes amlodipine 5 mg and metoprolol succinate 25 mg. His amlodipine was previously decreased from 10 mg, and he reports no noticeable difference in how he feels, with his blood pressure remaining well-controlled. For his history of pulmonary embolism, the patient is on warfarin and is monitored at [facility]. His INR levels have been unstable, fluctuating between 1.4 and 2.4, and he admits he may have missed a dose. He is not on Eliquis due to prohibitive cost. The patient has coronary artery disease with a history of stents, for which he takes clopidogrel. He also has a history of diastolic heart failure and a stable aortic aneurysm measuring 4.2 cm, for which he follows with a director oncology. His diabetes was diagnosed with an A1c of 7, but he is not currently on medication for it. For hyperlipidemia, he takes rosuvastatin 20 mg, which causes him neck cramps. The cramps resolve if he skips doses, but he continues the medication as advised for cardiovascular protection. He also takes doxazosin for BPH and reports no urinary issues. Regarding his general health, the patient has gained approximately 10 pounds since his last visit, with his weight now at 140 pounds, partly due to using protein shakes. His physical activity is limited; he has difficulty walking down stairs to do laundry. Medical History: - Chronic Obstructive Pulmonary Disease - Hypertension - Pulmonary Embolism - Diabetes Mellitus Type 2 - Coronary Artery Disease - Hyperlipidemia - Benign Prostatic Hyperplasia - Pulmonary nodule - Diastolic Heart Failure - Aortic aneurysm Surgical History: - Cardiac stenting Medications: - Albuterol inhaler every four hours as needed for COPD - Budesonide twice a day for COPD - Ipratropium-albuterol nebulizer for COPD - Amlodipine 5 mg for hypertension - Metoprolol succinate 25 mg for hypertension - Warfarin for pulmonary embolism - Clopidogrel (Plavix) for cardiac stents - Doxazosin 4 mg for prostate - Rosuvastatin 20 mg for cholesterol - Magnesium supplement Diagnostic Results: - Labs: Recent INR values fluctuated between 1.4, 1.7, and 2.4. - Labs: Previous HgbA1c was 7%. - Imaging: Aortic aneurysm is stable at 4.2 cm. Social History - Functional Status: Activity is limited by his respiratory condition; he reports difficulty walking down stairs to do laundry. - Past Activity Level: The patient was formerly very active, including climbing mountains, skiing, and scuba diving. - Nutrition: He uses Premier protein shakes, which he finds helpful for weight maintenance, and he avoids Glucerna due to its sugar content. - Weight Management: The patient has experienced a weight gain of approximately 10 pounds, which is viewed as a positive development, increasing from 131-136 lbs to his current weight of 140 lbs. [facility] Medical History (Updated 09/15/25 @ 09:55 by Ye Morejon MD) Pulmonary nodule 1 cm or greater in diameter Diabetes Diastolic CHF BPH (benign prostatic hyperplasia) Pulmonary embolism CAD (coronary artery disease) Pneumonia Chest pain Hypotension Personal history of nicotine dependence Dyspnea COPD (chronic obstructive pulmonary disease) Essential hypertension Surgical History History of cardiac catheterization (~06/20/22) History of back surgery Family History Father CVD (cardiovascular disease) Mother Stroke Social History Housing: House Alcohol intake: current Alcohol intake frequency: a few times a week Patient Tobacco Use Status: Former Tobacco user Tobacco use type: Cigar Years Smoked: 31 (onset 14, smoked off/on 52yrs for total 33yrs, 1ppd max, 30pyh) e-Cigarette/Vaping Use: Former Use Second Hand Smoke Exposure: No service: No Current occupational status: retired 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 How often do you have a drink containing alcohol?: 4 or more times a week 2. How many drinks containing alcohol do you have on a typical day when you are drinking?: 1 or 2 3. How often do you have six or more drinks on one occasion?: Never Total Score: 4 LAKESHA-7 AMB Questionnaire LAKESHA-7 Date LAKESHA - 7 assessed: 06/16/25 Source: Developed by Patti Brannon B.W. Dino, Danny Gorman and colleagues, with an educational ander from [employer]. Review of Systems Narrative Review of Systems - General: Reports never feeling 100% and has had recent weight gain. - Respiratory: Reports dyspnea on exertion which is exacerbated by cold and hot weather. - Musculoskeletal: Reports neck cramps associated with rosuvastatin use. - Genitourinary: Denies any problems with urination. All systems reviewed & are unremarkable except as reviewed in HPI and above Physical exam (Primary Care) Vital Signs: Last Vital Signs Temp 97.1 F 09/15/25 09:22 Pulse 76 09/15/25 09:22 Resp 16 09/15/25 09:22 BP 120/80 09/15/25 09:22 Pulse Ox 95 09/15/25 09:22 Oxygen Delivery Method Room Air 09/15/25 09:22 Care Plan Goal for BP management: In goal BMI result Body Mass Index 21.3 Tobacco/Smoking Status: Tobacco use Status Tobacco use date assessed 06/16/25 09/15/25 09:29 Patient Tobacco Use Status Former Tobacco user 09/15/25 09:29 Tobacco use type Cigar 09/15/25 09:29 e-Cigarette/Vaping Use Former Use 09/15/25 09:29 Thrive Assessment: Date of Thrive Assessment Date Thrive assessed 04/24/24 09/15/25 09:29 Narrative Physical Exam General: +Alert and oriented, Well nourished, No acute distress. Eye: Pupils are equal, round and reactive to light, Intact accommodation, Extraocular movements are intact, Normal conjunctiva, Vision unchanged. HENT: Normocephalic, Atraumatic, Tympanic membranes are clear, Normal hearing, Oral mucosa is moist, No pharyngeal erythema, Ear canals patent. Respiratory: Lungs CTA bilaterally, No wheeze, Respirations are non-labored. Cardiovascular: Regular rate, Regular rhythm, S1 auscultated, S2 auscultated, No murmur, Good pulses equal in all extremities, Normal peripheral perfusion, No edema. Gastrointestinal: Soft, Non-tender, Non-distended, Normal bowel sounds, No organomegaly. Musculoskeletal: Normal range of motion, Normal strength, No tenderness, No swelling, No deformity, Normal gait. Integumentary: Warm, Dry, [place], Intact. Neurologic: Alert, Oriented, Normal sensory, Normal motor function, No focal defects, Cranial Nerves II-XII are grossly intact, Normal deep tendon reflexes. Psychiatric: Cooperative, Appropriate mood & affect, Normal judgment. Coding Level of Care Code Est Pt Level 4 (13051) Add On Problem Visit Only Diagnoses Mixed simple and mucopurulent chronic bronchitis J41.8 COPD type: chronic bronchitis Chronic bronchitis type: mixed simple and mucopurulent Essential hypertension I10 Single subsegmental pulmonary embolism without acute cor pulmonale I26.93 Pulmonary embolism type: single subsegmental (without acute cor pulmonale) Type 2 diabetes mellitus without complication, without long-term current use of insulin E11.9 Diabetes mellitus type: type 2 Diabetes mellitus detention insulin use: without detention use Diabetes mellitus complication status: without complication Coronary artery disease involving [place] coronary artery of [place] heart without angina pectoris I25.10 Coronary Disease-Associated Artery/Lesion type: [place] artery [place] vs. transplanted heart: [place] heart Associated angina: without angina Other and unspecified hyperlipidemia E78.5 Chronic diastolic congestive heart failure I50.32 Heart failure chronicity: chronic Pulmonary nodule 1 cm or greater in diameter R91.1 Assessment & Plan Assessment & Plan (1) COPD (chronic obstructive pulmonary disease): Comment: - The patient's breathing symptoms are attributed to his COPD. - Continue current regimen of albuterol inhaler, budesonide, and ipratropium-albuterol nebulizer. - No supplemental oxygen is currently used. Code(s): J44.9 - Chronic obstructive pulmonary disease, unspecified Category: Medical Qualifiers: COPD type: chronic bronchitis Chronic bronchitis type: mixed simple and mucopurulent Qualified Code(s): J41.8 - Mixed simple and mucopurulent chronic bronchitis (2) Essential hypertension: Comment: - Blood pressure is well-controlled at 120/80 mmHg. - No changes to the current regimen of amlodipine 5 mg and metoprolol succinate 25 mg are warranted. Code(s): I10 - Essential (primary) hypertension Category: Medical (3) Pulmonary embolism: Comment: - Continue warfarin therapy. - Patient will continue follow-up at the [facility] for INR monitoring, given recent fluctuations. - Noted that Eliquis is not a viable alternative due to cost. Code(s): I26.99 - Other pulmonary embolism without acute cor pulmonale Category: Medical Qualifiers: Pulmonary embolism type: single subsegmental (without acute cor pulmonale) Qualified Code(s): I26.93 - Single subsegmental thrombotic pulmonary embolism without acute cor pulmonale (4) Diabetes: Comment: - Deferring initiation of medication at this time due to patient's age, polypharmacy, and overall status, with A1c of 7 - A standing order will be placed for a follow-up HgbA1c test in three months. 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 - Patient continues to follow with his director oncology. Code(s): I25.10 - Atherosclerotic heart disease of [place] coronary artery without angina pectoris Category: Medical Qualifiers: Coronary Disease-Associated Artery/Lesion type: [place] artery [place] vs. transplanted heart: [place] heart Associated angina: without angina Qualified Code(s): I25.10 - Atherosclerotic heart disease of [place] coronary artery without angina pectoris (6) Other and unspecified hyperlipidemia: Comment: - Continue rosuvastatin 20 mg despite myalgias, as the benefit for secondary prevention in the setting of CAD with stents outweighs the side effects. - Patient may continue using magnesium supplements to potentially alleviate muscle cramps. Code(s): E78.5 - Hyperlipidemia, unspecified Category: Medical (7) Diastolic CHF: Comment: Stable with no signs of fluid overload. Echo reviewed from earlier this year with an EF of 60-65% with grade 1 diastolic dysfunction. Encouraged continued follow up with Cardiology Code(s): I50.30 - Unspecified diastolic (congestive) heart failure Category: Medical Qualifiers: Heart failure chronicity: chronic Qualified Code(s): I50.32 - Chronic diastolic (congestive) heart failure (8) Pulmonary nodule 1 cm or greater in diameter: Comment: - Patient is scheduled for a PET scan for further evaluation. - Await results of the PET scan to determine next steps. Code(s): R91.1 - Solitary pulmonary nodule Category: Medical Plan: Health Maintenance: - Vaccinations: Patient confirms he received his annual influenza vaccine. - Nutrition: Advised to continue using protein shakes to maintain and increase weight, which has been successful with a recent 10-pound gain. - Physical Activity: Encouraged to stay as active as possible within his limitations. - Specialist Follow-up: Patient is actively following with pulmonology (Dr. Doan), cardiology, and the [facility]. Patient was informed and verbally consented to the use of an ambient scribe for clinic note documentation during this visit. Plan I reviewed the patient's multiple chronic conditions, including his COPD, hypertension, history of PE, diabetes, and CAD. His current COPD regimen provides some relief, and we will continue it. His blood pressure is well-controlled on the current regimen, so no changes are needed. We discussed his fluctuating INR levels on warfarin and the prohibitive cost of Eliquis, and he will continue with warfarin and close clinic follow-up. We will hold off on initiating diabetes medication due to his age and polypharmacy, opting to monitor his HgbA1c in three months. I reinforced the importance of continuing rosuvastatin for his heart health despite the associated muscle cramps. The patient understands that his breathing issues are from his lungs and not his heart. I acknowledged his upcoming PET scan for a pulmonary nodule. We have arranged for a telehealth follow-up via a phone call in three months. Orders: Orders Hemoglobin A1c 3 Months E11.9 - Type 2 diabetes mellitus without complications Patient Instructions: - Continue taking all your current medications as prescribed, including your inhalers for breathing, blood pressure pills, blood thinners, and cholesterol medication. - It is very important to continue taking your cholesterol pill (rosuvastatin) even though it causes some cramps, as it protects your heart. - Continue regular visits to the [facility] to check your blood thinner levels. - Continue using the protein shakes to help keep your weight up. You have gained about 10 pounds, which is good. - Stay as active as you can, but do not push yourself beyond your limits. - You will need to get a blood test for your diabetes (an A1c test) in about three months. I have placed the order for you. - Our next follow-up appointment will be in three months, and I will call you on your home phone for that visit.
[2025-09-15 09:22] VITALS: BP 120/80; PULSE 76; RESP 16; TEMP 36.2; O2SAT 95; BMI 21.3
== END 2025-09-15 09:52 | disposition home or self-care (01) ==
LOC: HO.HMCHD 09:20
PROVIDERS: PCP Student in an Organized Health Care Education/Training Program; Visit Provider Student in an Organized Health Care Education/Training Program
DX: J41.8 Mixed simple and mucopurulent chronic bronchitis (principal); I10 Essential (primary) hypertension; I26.93 Single subsegmental thrombotic pulmonary embolism without acute cor pulmonale; E11.9 Type 2 diabetes mellitus without complications; I25.10 Atherosclerotic heart disease of native coronary artery without angina pectoris; E78.5 Hyperlipidemia, unspecified; I50.32 Chronic diastolic (congestive) heart failure; R91.1 Solitary pulmonary nodule

== ENCOUNTER → 2025-09-15 09:20 | Outpatient (BNVA) | payer MEDICARE, SELFPAY | PROVIDERS: PCP Student in an Organized Health Care Education/Training Program; Visit Provider Student in an Organized Health Care Education/Training Program | DX: J41.8 Mixed simple and mucopurulent chronic bronchitis (principal); I11.0 Hypertensive heart disease with heart failure; I50.32 Chronic diastolic (congestive) heart failure; I26.93 Single subsegmental thrombotic pulmonary embolism without acute cor pulmonale; E11.9 Type 2 diabetes mellitus without complications; I25.10 Atherosclerotic heart disease of native coronary artery without angina pectoris; E78.5 Hyperlipidemia, unspecified; R91.1 Solitary pulmonary nodule; Z98.890 Other specified postprocedural states; Z95.5 Presence of coronary angioplasty implant and graft; Z79.01 Long term (current) use of anticoagulants | CPT/HCPCS: 99212 ==